=== PATIENT | female | born 1950 | race Caucasian/White ===

== ENCOUNTER → 2022-09-28 12:14 | Outpatient (BNVA) | payer MEDICARE, OTHER, SELFPAY | PROVIDERS: Family Provider Urology; PCP Urology; Visit Provider Nurse Practitioner | DX: N30.00 Acute cystitis without hematuria (principal) | CPT/HCPCS: 87077; 87086; 87184 ==

== ENCOUNTER 2022-11-05 18:21 | Inpatient (IN) | payer MEDICARE, OTHER, SELFPAY ==
[2022-11-05] VITALS (14 sets, daily range): BP systolic 101–187; BP diastolic 51–78; PULSE 57–100; RESP 14–19; TEMP 36.4; O2SAT 94–100; BMI 58.2
--- NOTE | 2022-11-05 18:32 | XRR_ITS ---
PROCEDURE INFORMATION: Exam: XR Chest Exam date and time: 11/05/2022 6:38 PM Age: 72 years old Clinical indication: Dyspnea TECHNIQUE: Imaging protocol: Radiologic exam of the chest. Views: 1 view. COMPARISON: No relevant prior studies available. FINDINGS: Lungs: Mild interstitial pulmonary edema. Pleural spaces: No pleural effusion. No pneumothorax. Heart/Mediastinum: Cardiac silhouette is moderately enlarged. Mediastinal contours are unremarkable. Vasculature: Vascular calcifications in the aorta. The aorta is tortuous. Bones/joints: Unremarkable for age. XR/XR chest 1V portable [id number] IMPRESSION: 1. Mild interstitial pulmonary edema. 2. Incidental/nonacute findings are listed in the report.
--- NOTE | 2022-11-05 18:35 | ED_ITS ---
HPI - SOB/Dyspnea General: Chief Complaint: Shortness of Breath/Dyspnea Stated Complaint: respiratory distress Time Seen by Provider: 11/05/22 18:26 History of Present Illness: HPI Narrative: Patient presents to the ER by EMS with shortness of breath x2 days. Family reports patient slept for over 20 hours yesterday and become more short of breath. Patient usually wears approximately 3 L of oxygen to maintain her sats but has been requiring up to 6 L of oxygen. Patient is usually more responsive and talkative than she has now per family. Review of Systems General: Reports: 10 or more systems reviewed and unremarkable except in HPI and below Physical Exam Const: COMMON NORMALS: no acute distress, patient oriented x3, no limitations and alert GENERAL APPEARANCE: cooperative and well developed NUTRITIONAL APPEARANCE: obese ORIENTATION/CONSCIOUSNESS: Yes awake, Yes oriented to person, Yes oriented to place and Yes oriented to time HENMT: COMMON NORMALS: normocephalic, atraumatic, hearing grossly normal bilaterally, external ears normal, Normal external nose present and moist oral mucous membranes HEAD & SCALP: normocephalic and atraumatic NOSE: Normal external nose present EXTERNAL EAR: Yes external ears normal Eye: COMMON NORMALS: Equal, round and reactive pupils present, EOMs intact bi laterally, conjunctivae normal and no scleral icterus CONJUNCTIVA: Yes co njunctivae normal PUPIL: Yes Equal, round and reactive pupils present Neck/C-Spine: COMMON NORMALS: full ROM, no lymphadenopathy, supple, no meningeal signs, no JVD and Thyroid normal THYROID: Thyroid normal Chest: COMMONS NORMALS: normal inspection of the chest and normal palpation of entire chest wall Resp: EFFORT & INSPECTION: Yes symmetric chest movement AUSCULTATION: diminished lung sounds Cardio: COMMON NORMALS: no JVD, regular rate, regular rhythm, S1 normal heart sound present, S2 normal heart sound present, No gallops present (Cardio), No clicks present (Cardio) and No murmurs present (Cardio) RATE: regular rate RHYTHM: regular rhythm HEART SOUNDS: S1 normal heart sound present and S2 normal heart sound present GI: COMMON NORMALS: Normal to inspection, nondistended, normoactive bowel sounds present, Soft to palpation, non-tender, No hepatosplenomegaly present and no masses PALPATION: Yes Soft to palpation and Yes No hepatosplenomegaly present OTHER: Morbid obesity Extremity: NARRATIVE EXTREMITY EXAM: 2+ pitting edema to bilateral lower extremities, brawny skin noted on bilateral lower extremities. Neuro: COMMON NORMALS: patient oriented x3 SENSORIUM/ORIENTATION: Yes alert, Yes oriented to person, Yes oriented to place and Yes oriented to time MENINGEAL SIGNS: Yes no meningeal signs Course Vital Signs: Vital signs: Vital Signs Temperature 97.6 F 11/05/22 18:57 Pulse Rate 100 11/05/22 20:06 Respiratory Rate 14 11/05/22 19:46 Blood Pressure 138/68 11/05/22 20:00 Pulse Oximetry 97 11/05/22 20:00 Oxygen Delivery Me thod Nasal Cannula 11/05/22 20:00 Oxygen Flow Rate 6 11/05/22 20:00 Fraction of Inspir ed Oxygen 35 11/05/22 20:06 MDM - SOB/Dyspnea Medical Decision Making Patient presents to the ER with complaints of shortness of breath. Patient is normally on 3 L of oxygen and today she is requiring 6 L of oxygen to keep her sat up. Patient does appear little more sleepy and tired than normal. Patient's family says she has been sleeping a lot more than normal and become short of breath today. ABG was obtained which showed a patient's PCO2 of 105. Patient was placed on BiPAP. Lab work was obtained which showed a normal white count of 8.6 normal BUN/creatinine of 13 and 0.5 but elevated CO2 of 42, chest x-ray showed mild interstitial pulmonary edema but a BNP was 168. Urinalysis did show 10-15 white blood cells with 0-4 squamous but was negative for leukocytes Estrace and nitrates. Dr. Dunne was consulted due to the patient's need for inpatient mission secondary to hypercapnia and being on BiPAP. Dr. Paresh landin agreed to inpatient placement for further evaluation and treatment. Patient will be placed on [facility] Differential Diagnosis Likely acute exacerbation of chronic obstructive airways disease and congestive heart failure; Unlikely community acquired pneumonia, asthma with exacerbation or pulmonary embolism Medical Records I reviewed the patient's medical records. Lab Data I reviewed the patient's lab results. 11/05/22 19:33 11/05/22 19:33 Labs/Radiology: Radiology Impressions Chest X-Ray 11/05/22 18:32 IMPRESSION: 1. Mild interstitial pulmonary edema. 2. Incidental/nonacute findings are listed in the report. Laboratory Results WBC 8.6 10^3/uL (4.0-10.0) 11/05/22 19: RBC 3.76 10^6/uL (4.1-5.3) L 11/05/22 19: Hgb 11.6 g/dL (11.5-15.3) 11/05/22 19: Hct 39.0 % (37.0-47.0) 11/05/22 19: MCV 103.7 fl (81-99) H 11/05/22 19: MCH 30.9 pg (28.0-34.0) 11/05/22: MCHC 29.7 g/dL (30.0-36.0) L 11/05/22: RDW 13.6 % (12.1-15.1) 11/05/22 19: Plt Count 155 10^3/cmm (130-400) 11/05/22: MPV 10.3 fL (7.4-10.4) 11/05/22 19:33 Neut % (Auto) 65.9 % 11/05/22 19:33 Lymph % (Auto) 22.6 % 11/05/22 19:33 Bland % (Auto) 9.0 % 11/05/22 19: Eos % (Auto) 1.7 % 11/05/22: Baso % (Auto) 0.3 % 11/05/22: Neut # (Auto) 5.66 10^3/uL (1.8-7.7) 11/05/22 19:33 Lymph # (Auto) 1.9 10^3/uL (0.8-4.8) 11/05/22 19:33 Bland # (Auto) 0.8 10^3/uL (0.2-0.9) 11/05/22 19: Eos # (Auto) 0.2 10^3/uL (0.0-0.8) 11/05/22 19: Baso # (Auto) 0.0 10^3/uL (0.0-0.1) 11/05/22 19:33 Nucleated RBC % (auto) 0 % 11/05/22 19: Nucleated RBCs # 0.0 /100WBC 11/05/22 19:33 Specimen Type Arterial 11/05/22 19:41 Sample Site Brachial, right 11/05/22 19:41 ABG pH 7.28 (7.35-7.45) L 11/05/22 19:41 ABG pCO2 105.0 mmHg (35-45) H* 11/05/22 19:41 ABG pO2 90.2 mmHg (80.0-100.0) 11/05/22 19:41 ABG HCO3 49.8 mmol/L (22-26) H 11/05/22 19:41 ABG O2 Saturation 97.7 11/05/22 19:41 ABG Base Excess 18.3 mmol/L (-2.0-2.0) H 11/05/22 19:41 Joaquín Test Pos 11/05/22 19:41 Hematocrit 37.4 % (37-47) 11/05/22 19:41 Hgb O2 Saturation 94.8 % (95-100) L 11/05/22 19:41 Carboxyhemoglobin 2.2 %THgb (0.4-20.1) 11/05/22 19:41 Methemoglobin 0.8 % (0.4-1.5) 11/05/22 19:41 Total Hemoglobin 12.2 g/dL (12-16) 11/05/22 19:41 Sodium 142.0 mmol/L (131-143) 11/05/22 19:41 Potassium 4.2 mmol/L (3.5-5.0) 11/05/22 19:41 Glucose 226.0 mg/dL (70-115) H 11/05/22 19:41 Ionized Calcium 1.3 mmol/L (1.1-1.4) 11/05/22 19:41 O2 Delivery Device Nc 11/05/22 19:41 O2 Liters/Min 3.0 % 11/05/22 19:41 Glass Forming Crew Member ID [email or web address] 11/05/22 19:41 Sodium 138 mmol/L (136-145) 11/05/22 19:33 Potassium 4.6 mmol/L (3.5-5.1) 11/05/22 19:33 Chloride 91 mmol/L (98-107) L 11/05/22 19:33 Carbon Dioxide 42 mmol/L (22-29) H* 11/05/22 19:33 Anion Gap 9.6 (5-19) 11/05/22 19:33 BUN 13 mg/dL (8-23) 11/05/22 19:33 Creatinine 0.5 mg/dL (0.5-0.9) 11/05/22 19:33 GFR Calculation 122.0 mL/min (90-130) 11/05/22 19:33 Glucose 206 mg/dL (65-115) H 11/05/22 19:33 Calculated Osmolality 292 mOsm/kg (285-295) 11/05/22 19:33 Lactic Acid 1.1 mmol/L (0.5-2.2) 11/05/22 19:33 Calcium 8.9 mg/dL (8.5-10.5) 11/05/22 19:33 Magnesium 1.9 mg/dL (1.7-2.3) 11/05/22 19:33 Total Bilirubin 0.6 mg/dL (0.15-1.2) 11/05/22 19:33 AST 26 U/L (0-32) 11/05/22 19:33 ALT 10 U/L (0-33) 11/05/22 19:33 Alkaline Phosphatase 110 U/L (35-105) H 11/05/22 19:33 NT-Pro-B Natriuret Pep 168 pg/mL (0-125) H 11/05/22 19:33 Total Protein 7.3 g/dL (6.6-8.7) 11/05/22 19:33 Albumin 3.2 g/dL (3.5-5.2) L 11/05/22 19:33 Globulin 4.1 g/dL (1.3-4.6) 11/05/22 19:33 Procalcitonin 0.08 ng/mL (0-0.5) 11/05/22 19:33 Urine Color Yellow (Yellow) 11/05/22 20:50 Urine Appearance Slightly cloudy (CLEAR) A 11/05/22 20:50 Urine pH 6 (5-7) 11/05/22 20:50 Ur Specific [place] 1.015 (1.005-1.030) 11/05/22 20:50 Urine Protein Neg (Negative) 11/05/22 20:50 Urine Glucose (UA) 1+ (Normal) H 11/05/22 20:50 Urine Ketones 1+ (Negative) H 11/05/22 20:50 Urine Blood Neg (Negative) 11/05/22 20:50 Urine Nitrate Negative (Negative) 11/05/22 20:50 Urine Bilirubin Neg (Negative) 11/05/22 20:50 Urine Urobilinogen 1 mg/dL (Negative) H 11/05/22 20:50 Ur Leukocyte Esterase Negative (Negative) 11/05/22 20:50 Urine RBC None /hpf (0-2) 11/05/22 20:50 Urine WBC 10-15 /hpf (0-5) H 11/05/22 20:50 Ur Squamous Epith Cells 0-4 /hpf (0-5) H 11/05/22 20:50 Amorphous Sediment Not Reportable 11/05/22 20:50 Urine Bacteria Trace /hpf (NONE) 11/05/22 20:50 Urine Mucus Trace /hpf 11/05/22 20:50 Urine Yeast 1+ /hpf H 11/05/22 20:50 EKG Data EKG 1: I personally reviewed and interpreted this EKG as follows: EKG Interpretation Date: 11/05/22 EKG interpretation time: 18:48 Prior EKG tracings: not available for review Interpretation: EKG showed ventricular rate of 79 beats minute, NM interval 222, QRS duration 100, QTc 424, sinus rhythm with a first-degree AV block, left anterior fascicular block, anteroseptal VT of indeterminate age shows Q waves in V1 through V4 Discharge Plan Discharge Patient Disposition: Admitted As Inpatient Clinical Impression: Acute respiratory failure with hypoxia and hypercapnia, COPD (chronic obstructive pulmonary disease), Morbid obesity Condition: Stable Referrals: Amari Fitzgerald MD [Primary Care Provider] - Coding Level of Care Code ED Picking Belt Operator for Chg Asher
--- NOTE | 2022-11-05 18:50 | PC.NURSE ---
Pt hooked up to continuous bedside cardiac monitoring.
[2022-11-05] MEDS: ipratropium-albuterol 3 mL Neb INHALATION (19:45)
[2022-11-05 19:50] LABS: ABG PH Result 7.28 (7.35-7.45); Arterial Blood Gas Hematocrit 37.4 % (37-47); Base Excess ABG 18.3 mmol/L (-2.0-2.0); Blood Gas Allen Test Pos; Blood Gas Sample Site Brachial, right; Blood Gas Sample Type Arterial; Carboxyhemoglobin 2.2 %THgb (0.4-20.1); HCO3 ABG 49.8 mmol/L (22-26); HGB O2 Sat 94.8 % (95-100); Ionized Calcium Level - ABG 1.3 mmol/L (1.1-1.4); Methemoglobin 0.8 % (0.4-1.5); Oxygen Device NC; Oxygen Saturation ABG 97.7; PO2 ABG 90.2 mmHg (80.0-100.0); Potassium Level - ABG 4.2 mmol/L (3.5-5.0); Total Hemoglobin 12.2 g/dL (12-16)
[2022-11-05 19:52] LABS: Basophils % 0.3 %; Eosinophils # 0.2 10^3/uL (0.0-0.8); Eosinophils % 1.7 %; Hemoglobin 11.6 g/dL (11.5-15.3); Lymphocytes # 1.9 10^3/uL (0.8-4.8); Lymphocytes % 22.6 %; Mean Corpuscular HGB Conc 29.7 g/dL (30.0-36.0); Mean Corpuscular Hemoglobin 30.9 pg (28.0-34.0); Mean Corpuscular Volume 103.7 fl (81-99); Mean Platelet Volume 10.3 fL (7.4-10.4); Monocytes # 0.8 10^3/uL (0.2-0.9); Neutrophils # 5.66 10^3/uL (1.8-7.7); Neutrophils % 65.9 %; Nucleated Red Blood Cells % 0 %; Platelet Count 155 10^3/cmm (130-400); Red Blood Count 3.76 10^6/uL (4.1-5.3); Red Cell Distribution Width 13.6 % (12.1-15.1); White Blood Count 8.6 10^3/uL (4.0-10.0)
[2022-11-05 20:15] LABS: Lactic Sepsis W/Reflex 1.1 mmol/L (0.5-2.2)
[2022-11-05 20:42] LABS: Alanine Aminotransferase 10 U/L (0-33); Albumin Level 3.2 g/dL (3.5-5.2); Alkaline Phosphatase 110 U/L (35-105); Anion Gap 9.6 (5-19); Aspartate Amino Transferase 26 U/L (0-32); Blood Urea Nitrogen 13 mg/dL (8-23); Calcium 8.9 mg/dL (8.5-10.5); Chloride 91 mmol/L (98-107); Globulin 4.1 g/dL (1.3-4.6); Glucose 206 mg/dL (65-115); Magnesium 1.9 mg/dL (1.7-2.3); NT Pro B Type Natriuretic Pept 168 pg/mL (0-125); Osmolality Calculated 292 mOsm/kg (285-295); Potassium 4.6 mmol/L (3.5-5.1); Procalcitonin 0.08 ng/mL (0-0.5); Sodium 138 mmol/L (136-145); Total Bilirubin 0.6 mg/dL (0.15-1.2); Total Protein 7.3 g/dL (6.6-8.7)
[2022-11-05 20:43] LABS: Carbon Dioxide 42 mmol/L (22-29)
[2022-11-05] MEDS: FUROsemide 10 mg/mL SDV 4mL 40 MG IVP (20:43)
[2022-11-05 21:14] LABS: Add Urine Microscopic? YES; Bilirubin Urine Neg (Negative); Blood Urine Neg (Negative); Glucose Urine UA 1+ (Normal); Ketones Urine 1+ (Negative); Leukocyte Esterase Urine Negative (Negative); Nitrate Urine Negative (Negative); Protein Urine Neg (Negative); Specific Gravity, Urine 1.015 (1.005-1.030); Urine Appearance Slightly Cloudy (CLEAR); Urine Color Yellow (Yellow); Urobilinogen Urine 1 mg/dL (Negative); pH Urine 6 (5-7)
[2022-11-05 21:15] LABS: Add Urine Culture? No; Bacteria Urine TRACE /hpf; Mucus Urine TRACE /hpf; Squamous Epithelial Cell Urine 0-4 /hpf (0-5)
--- NOTE | 2022-11-05 21:36 | P.HP_ITS ---
Providers/Chief Complaint Primary Care Provider: Amari Fitzgerald MD Chief Complaint: respiratory distress History of Present Illness Cara Stevens is a 72 year old female with past medical history of end-stage COPD, chronic heart failure, diabetes mellitus, kidney stones, CKD, hypothyroidism, obstructive sleep apnea, restless leg syndrome who presented to the hospital today accompanied by her son for being obtunded. Patient's son provides most of the history at bedside. He states that she recently moved from [place] to [place] about 3 weeks ago. She has not established care here yet. She sees Dr. Nancy Baird in [place] for primary care. 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 Patient's son states that her last hospitalization was in April 2022 when she has been out of the hospital for about 6 months which is pretty good compared to prior. She has been intubated in the past about 2 years ago and did have COVID-19 at the time. He states that she is pretty immobile and uses a power lift chair and is able to transfer from the chair to bedside commode but lately has not been able to do that either. He states that her baseline CO2 is 80-90 on a regular basis however when she goes out feeling a little bit she becomes very altered and that is when he notes the need to come to the hospital. They do not have a BiPAP at home and they are trying to obtain 1. They recently had a sleep [facility] the [facility] in order to qualify for BiPAP however have not heard of results yet. He also states that patient has had quite a bit of fluid buildup on her legs and she is on torsemide and spironolactone for that. He says she does not really do well with Lasix that she gets hypokalemic and kidney gets very messed up . This usually prolongs her hospitalization patient is on however does understand the need for Lasix in case of heart failure and is okay with us giving it to her if needed. He also states that she has been on hospice in the past however did not like to any people coming to the house and giving her morphine and keeping her on pain medications. She came off of hospice and is not interested in going back on it again. He is very well aware that she has end-stage COPD and they are nearing the end . He is the official DPOA. She is on beclomethasone inhaler and nebulizing treatments twice a day. She is on gabapentin, Vicodin, allopurinol, potassium citrate. He also states that she is on Macrobid for UTI. He says that she constantly has a urine infection that never really clears up. She also takes ropinirole and Singulair. The rest of her medications he cannot remember at this time. She is an insulin-dependent diabetic however he is not on Lantus. He states she is on a powerful insulin that none of the hospitals carry and he will bring it to the hospital in the morning. At this time when seen patient knows her name her date of knows that she is in the hospital at [facility] however does not know the year or who the president is at this time. She also does tend to doze off when talking. She is currently wearing 6 L nasal cannula. Her baseline is 3 L nasal cannula at home. She denies nausea vomiting diarrhea at this time. She has chronic back pain which is currently present as well. Patient's son does not have a list of her medications and will bring him in the morning. ED course: Labs 8.6, hemoglobin 11.6, platelets 155, ABG 7.2 8/105/90 0.2/49.8. Sodium 138, potassium 4.6, chloride 91, CO2 42, creatinine 0.5, lactic acid 1.1, BNP 168, UA positive for 1+ glucose 1+ ketones, negative leukocyte esterase, 10- 15 WBCs, 1+ yeast, trace bacteria, trace mucus. Matos catheter in place draining edison-colored urine. Chest x-ray did show mild interstitial pulmonary edema. Blood pressure on arrival 138/68, pulse ox 97% on 6 L nasal cannula, respirate 14, saturating 97%. Pulse 100, temperature 97.6. Medications/Allergies Home Medications Medication Instructions Recorded Confirmed Last Taken Type alprazolam 0.5 mg tablet mg 11/06/22 11/06/22 Unknown History Allergies Allergy/AdvReac Type Severity Reaction Status Date / Time clindamycin Allergy Unknown RASH Verified 10/20/22 10:03 Vitals/I&O/Wt Last Vital Signs Temp 97.6 F 11/05/22 18:57 Pulse 100 11/05/22 20:06 Resp 14 11/05/22 19:46 BP 138/68 11/05/22 20:00 Pulse Ox 97 11/05/22 20:00 O2 Del Method Nasal Cannula 11/05/22 20:00 O2 Flow Rate 6 11/05/22 20:00 FiO2 35 11/05/22 20:06 Weight last 48 hrs Weight 158.757 kg Physical Exam Narrative: General: Alert oriented x2, patient seen laying in bed on BiPAP at this time, no acute respiratory distress no conversational dyspnea. However after talking for a little bit does tend to doze off. HEENT: Normocephalic, atraumatic, EOMI, Cardio: Regular rate rhythm, normal S1-S2 Respiratory: Here lung driver clear to auscultation no wheezes no rhonchi present, posterior lung driver diminished at bases bilaterally GI: Abdomen soft, nontender, nondistended, bowel sounds + Extremities: Chronic venous stasis changes bilateral lower extremities, 2+ pitting edema up to thighs Urinary Catheter Management: Matos: Cath Placed During This Visit: yes Urinary Catheter Date of Insertion: 11/05/22 Urinary Catheter Time of Insertion: 20:51 Data 11/05/22 19:33 11/05/22 19:33 A&P Assessment and plan (1) Acute respiratory failure with hypoxia and hypercapnia: (2) COPD (chronic obstructive pulmonary disease): Qualifiers: COPD type: unspecified COPD Qualified Code(s): J44.9 - Chronic obstructive pulmonary disease, unspecified (3) Morbid obesity: (4) CHF (congestive heart failure): (5) UTI (urinary tract infection): (6) CKD (chronic kidney disease): (7) ELI (obstructive sleep apnea): (8) End stage COPD: (9) Oxygen dependent: Plan #CO2 narcosis #End-stage COPD #Acute on congestive heart failure, unspecified #Diabetes mellitus, insulin-dependent #Urolithiasis #CKD #Hypothyroidism #Restless leg syndrome #History of chronic UTIs ? Baseline CO2 80-90 ? CO2 105 pH 7.28 on arrival today. Placed on BiPAP. Currently improving ? Check urine culture ? Patient is somewhat altered most likely secondary to CO2 narcosis versus UTI ? Check blood culture ? We will place on Zosyn at this time ? Patient had a sleep study done as an outpatient at the [facility]. Awaiting results. ? Request records from [facility] ? Sliding scale insulin moderate dose intensity ? Does appear fluid overloaded at this time. Will place on Lasix 40 daily IV ? Hold home torsemide spironolactone at this time. Has not been taking it for the last few days anyway due to increasing urination ? We will need to confirm patient's home medications. Patient's son will bring list in the morning ? He will also bring her home insulin in the morning. ? Check TSH, hemoglobin A1c ? Patient has been on hospice in the past but is not interested in hospice at this time. -DuoNeb every 6 hours as needed ? Budesonide 0.5 twice daily nebulizing -Placed on dexamethasone 6 IV daily. ? Avoid IV fluids at this time - Recheck gas in a.m. -Check echo -Diet: Patient's son specifically requests regular diet for the patient. He states that she is done with eating cardiac diet and diabetic diets and she would prefer a regular diet at this time they understand the risks associated w ith it. Full code SCDs, heparin subcu twice daily DVT prophylaxis Attestations Medical Necessity Statement*: Greater than 2 midnight stay for management of COPD exacerbation, CO2 narcosis Coding Level of Care Code G0427 (70 min) TH Encounter Time (min): 75 Patient seen via Telehealth in the acute care setting (hospital or ED location) by agreement and consent of patient or patient direct marketing representative. Telehealth technology used during the visit includes video and audio. This patient encounter is appropriate and reasonable under the circumstances given the patient?s particular presentation at this time. The patient has been advised of the potential risks and limitations of this mode of treatment (including but not limited to the absence of in-person examination at this time) and has agreed to be treated by an off-site physician for this visit. If deemed clinically necessary from this telehealth visit, or if condition or consent for telehealth visit changes, an in-person visit will be arranged. For this encounter, total time for the origination of telehealth care on this date is as shown. Diagnoses Acute respiratory failure with hypoxia and hypercapnia J96.01; J96.02 COPD (chronic obstructive pulmonary disease) J44.9 COPD type: unspecified COPD Morbid obesity E66.01 CHF (congestive heart failure) I50.9 UTI (urinary tract infection) N39.0 CKD (chronic kidney disease) N18.9 ELI (obstructive sleep apnea) G47.33 End stage COPD J44.9 Oxygen dependent Z99.81
[2022-11-06] VITALS (56 sets, daily range): BP systolic 90–150; BP diastolic 46–118; PULSE 52–94; RESP 10–35; TEMP 36.7–37.7; O2SAT 81–99; BMI 53.1
--- NOTE | 2022-11-06 00:45 | USCV_ITS ---
Cara Stevens Age: 72 Gender: F : 1950 Exam Date: 11/06/2022 01:22 Ordering Phys: Kerry Dunne MD Technologist: David Lemus [place] [facility] [place]: SOB x 2 days. O2 dependent at 3L. Patient on BIPAP, unresponsive in ICU-8. BP: 113 / 53 HR: 66 Rhythm: Sinus Technical Quality: Adequate MEASUREMENTS (Male / Female) Normal Values 2D ECHO LV Diastolic Diameter PLAX 4.8 cm 4.2 - 5.9 / 3.9 - 5.3 cm LV Systolic Diameter PLAX 3.1 cm IVS Diastolic Thickness 1.3 cm 0.6 - 1.0 / 0.6 - 0.9 cm IVS Systolic Thickness 1.6 cm LVPW Diastolic Thickness 1.1 cm 0.6 - 1.0 / 0.6 - 0.9 cm LVPW Systolic Thickness 1.4 cm LVOT Diameter 2.0 cm LV Ejection Fraction 2D Teich 64.5 % LV Ejection Fraction MOD 2C 57.1 % LV Ejection Fraction 2C AL 57.6 % LA Diameter 3.8 cm LA Width 5.4 cm LA Height 6.5 cm RA Width 4.3 cm RA Height 5.0 cm Aorta at Sinotubular Diameter 2.5 cm IVC Diameter 2.4 cm M-MODE Aortic Annulus Diameter 2.8 cm LA Ao Ratio MM 1.3 MV E Point Septal Separation 0.8 cm DOPPLER AV Peak Velocity 99.0 cm/s LVOT Peak Velocity 85.0 cm/s AV Area Cont Eq vti 2.7 cm squared AV Area Cont Eq pk 2.6 cm squared MV Area PHT 2.8 cm squared Mitral E to A Ratio 1.1 MV E' Velocity 63.5 cm/s Mitral E to MV E' Ratio 13.7 Mitral E to LV E' Lateral Ratio 13.3 Mitral E to LV E' Septal Ratio 14.4 TV Peak E Velocity 50.0 cm/s PV Peak Velocity 104.0 cm/s RV Acceleration Time 0.1 s RV Ejection Time 0.3 s RV AcT/ET 0.3 FINDINGS Left Ventricle Left ventricle is normal in size. LV systolic function is normal with EF of 55 to 60%. No regional wall motion abnormalities are seen. Right Ventricle Normal in size and function Right Atrium Normal in size Left Atrium Dilated Mitral Valve Mild mitral annular calcification is seen. Trace mitral regurgitation. Aortic Valve Aortic valve is thickened and calcified. No significant stenosis or regurgitation. Tricuspid Valve Trace tricuspid regurgitation is seen. Insufficient TR jet to calculate RVSP Pulmonic Valve Not well-visualized. Trace pulmonic regurgitation Pericardium Normal Aorta Normal in size IVC Dilated CONCLUSIONS LV systolic function is normal with EF of 55-60% Dilated left atrium Trace mitral regurgitation Trace tricuspid regurgitation Trace pulmonic regurgitation. IVC is dilated No comparison studies are available Nathan Hernandez MD (Electronically Signed) Final Date: 06 November 2022 15:10 S
[2022-11-06 01:42] LABS: ABG PH Result 7.39 (7.35-7.45); Arterial Blood Gas Hematocrit 34.8 % (37-47); Base Excess ABG 21.1 mmol/L (-2.0-2.0); Blood Gas Operator Identificat JB; Blood Gas Sample Site Brachial, right; Blood Gas Sample Type Arterial; HCO3 ABG 50.1 mmol/L (22-26); Oxygen Device BIPAP; PO2 ABG 72.7 mmHg (80.0-100.0)
[2022-11-06 01:43] LABS: ABG PCO2 82.6 mmHg (35-45)
[2022-11-06] MEDS: piperacillin-tazobactam 3.375 GM in sodium chloride 0.9% (plus) 50 ML IV ×3 (02:29→16:56)
[2022-11-06] MEDS: dexamethasone 10 mg/mL INJ 6 MG IVP (02:29)
[2022-11-06] MEDS: heparin 5,000 unit/mL INJ 1 mL 5000 UNIT SUBCUT (02:29)
[2022-11-06 02:38] LABS: Basophils % 0.5 %; Eosinophils # 0.2 10^3/uL (0.0-0.8); Hemoglobin 11.2 g/dL (11.5-15.3); Lymphocytes # 2.1 10^3/uL (0.8-4.8); Lymphocytes % 27.2 %; Mean Corpuscular HGB Conc 29.5 g/dL (30.0-36.0); Mean Corpuscular Hemoglobin 30.5 pg (28.0-34.0); Mean Corpuscular Volume 103.5 fl (81-99); Mean Platelet Volume 10.3 fL (7.4-10.4); Monocytes # 0.7 10^3/uL (0.2-0.9); Monocytes % 9.3 %; Neutrophils # 4.76 10^3/uL (1.8-7.7); Neutrophils % 60.6 %; Nucleated Red Blood Cells % 0 %; Platelet Count 157 10^3/cmm (130-400); Red Blood Count 3.67 10^6/uL (4.1-5.3); Red Cell Distribution Width 13.7 % (12.1-15.1); White Blood Count 7.9 10^3/uL (4.0-10.0)
[2022-11-06 03:03] LABS: Blood Urea Nitrogen 14 mg/dL (8-23); Calcium 9.5 mg/dL (8.5-10.5); Chloride 92 mmol/L (98-107); Glucose 211 mg/dL (65-115); Magnesium 1.7 mg/dL (1.7-2.3); Osmolality Calculated 297 mOsm/kg (285-295); Sodium 140 mmol/L (136-145)
[2022-11-06 03:06] LABS: Anion Gap 6.3 (5-19); Potassium 4.3 mmol/L (3.5-5.1)
[2022-11-06 03:09] LABS: Carbon Dioxide 46 mmol/L (22-29)
[2022-11-06 03:13] LABS: Procalcitonin 0.11 ng/mL (0-0.5); Thyroid Stimulating Hormone 5.87 uIU/mL (0.27-4.20)
[2022-11-06 05:13] LABS: Add Urine Microscopic? YES; Bilirubin Urine Neg (Negative); Blood Urine Neg (Negative); Glucose Urine UA Norm (Normal); Ketones Urine Negative (Negative); Leukocyte Esterase Urine Trace (Negative); Nitrate Urine Negative (Negative); Protein Urine 1+ (Negative); Urine Appearance Cloudy (CLEAR); Urine Color Yellow (Yellow); Urobilinogen Urine Neg (Negative); pH Urine 5 (5-7)
[2022-11-06 05:19] LABS: RBC Urine 0-4 /hpf (0-2)
[2022-11-06 05:20] LABS: Bacteria Urine 2+ /hpf; Coarse Granular Casts Urine 0-4 /lpf; Mucus Urine 3+ /hpf
[2022-11-06 05:21] LABS: Add Urine Culture? Yes
[2022-11-06 05:44] LABS: Base Excess ABG 20.5 mmol/L (-2.0-2.0); Blood Gas Allen Test Pos; Blood Gas Operator Identificat JB; Blood Gas Sample Site Brachial, right; Blood Gas Sample Type Arterial; HCO3 ABG 49.2 mmol/L (22-26); Oxygen Device BIPAP; PO2 ABG 66.6 mmHg (80.0-100.0)
[2022-11-06 05:45] LABS: ABG PCO2 79.9 mmHg (35-45)
[2022-11-06 08:01] LABS: Glucose Point of Care 280 mg/dL (70-110)
[2022-11-06] MEDS: budesonide 0.5 mg/2 mL Neb INHALATION ×2 (08:06→20:06)
[2022-11-06] MEDS: ipratropium-albuterol 3 mL Neb INHALATION ×4 (08:06→20:06)
[2022-11-06] MEDS: FUROsemide 10 mg/mL SDV 4mL 40 MG IVP (08:16)
[2022-11-06] MEDS: insulin lispro 100 unit/1 mL SUBCUT ×4 (08:16→21:17)
--- NOTE | 2022-11-06 09:16 | PC.PHAR ---
FAXED [place] FOR MED LIST
[2022-11-06 10:53] LABS: Glucose Point of Care 379 mg/dL (70-110)
--- NOTE | 2022-11-06 12:05 | PM.PN ---
Subjective Subjective: Patient was seen and examined this morning, she was complaining of shortness of breath which is more than her baseline shortness of breath, morning ABG has been reviewed, currently is compensated chronic hypercapnia.Currently she is saturating well on 4 L oxygen which is more or less her baseline. Medications: Medication Review Details: Generic Name Dose Route Start Last Admin Trade Name Lisa PRN Reason Stop Dose Admin Albuterol/Ipratrop ium 3 ml 11/06/22 08:00 11/06/22 11:01 Ipratropium-Albu terol 3 Ml Neb INHALATION 3 ml QID.RESPIRATORY S CH Administration Budesonide 0.5 mg 11/06/22 08:00 11/06/22 08:06 Budesonide 0.5 M g/2 Ml Neb INHALATION 0.5 mg BID.RESPIRATORY S CH Administration Dexamethasone 6 mg 11/06/22 00:45 11/06/22 02:29 Dexamethasone 10 Mg/Ml Inj IVP 6 mg Q24H GET Administration Furosemide 40 mg 11/06/22 08:00 11/06/22 08:16 Furosemide 10 Mg /Ml Sdv 4ml IVP 40 mg Q24H GET Administration Heparin Sodium (Po rcine) 5,000 unit 11/06/22 00:45 11/06/22 02:29 Heparin 5,000 Un it/Ml Inj 1 Ml SUBCUT 5,000 unit Q12H GET Administration Piperacillin Sod/T azobactam 50 mls @ 12.5 mls /hr 11/06/22 01:00 11/06/22 08:17 Sod 3.375 gm/ So dium Chloride IV 12.5 mls/hr Q8H GET Administration Insulin Human Lisp ro 0 unit 11/06/22 08:00 11/06/22 08:16 Insulin Lispro 1 00 Unit/1 Ml SUBCUT 10 unit WM&BEDTIME GET Administration Protocol Vitals/I&O/Wt Last Vital Signs Temp 98.0 F 11/06/22 04:00 Pulse 79 11/06/22 11:03 Resp 21 H 11/06/22 11:01 BP 118/66 11/06/22 10:30 Pulse Ox 95 11/06/22 11:03 O2 Del Method BiPAP 11/06/22 11:01 O2 Flow Rate 4 11/06/22 10:30 FiO2 30 11/06/22 11:03 11/05/22 11/06/22 11/06/22 22:59 06:59 14:59 Intake Total 300 / 300 300 / 300 Output Total 1350 / 1350 Balance -1050 / -1050 300 / 300 Weight last 48 hrs Weight 144.696 kg Weight 158.757 kg Physical Exam HENMT: COMMON NORMALS: normocephalic and atraumatic HEAD & SCALP: normocephalic and atraumatic Resp: COMMON NORMALS: clear to auscultation bilaterally AUSCULTATION: clear to auscultation bilaterally OTHER: Diminished air entry B/L Cardio: COMMON NORMALS: regular rate, regular rhythm, S1 normal heart sound present, S2 normal heart sound present, No gallops present (Cardio), No murmurs present (Cardio), No rub (Cardio) and Peripheral pulses 2+ throughout RATE: regular rate RHYTHM: regular rhythm HEART SOUNDS: S1 normal heart sound present and S2 normal heart sound present PERIPHERAL PULSES: Peripheral pulses 2+ throughout GI: COMMON NORMALS: Normal to inspection, nondistended, normoactive bowel sounds present, Soft to palpation, non-tender, No hepatosplenomegaly present and no masses AUSCULTATION: Yes normoactive bowel sounds PALPATION: Yes Soft to palpation and Yes No hepatosplenomegaly present RECTAL EXAM: deferred Extremity: COMMON NORMALS: no clubbing, cyanosis or edema and no pedal edema Urinary Catheter Management: Matos: Cath Placed During This Visit: yes Reason for Continuing Indwelling Catheter: Accurate Measurement of Urinary Output in Critically Ill Patients Urinary Catheter Date of Insertion: 11/05/22 Urinary Catheter Time of Insertion: 20:51 Data 11/06/22 01:45 11/06/22 01:45 Micro: Microbiology 11/06/22 01:45 Blood Culture - Preliminary Blood SPECIMEN COLLECTED 11/06/22 01:50 Blood Culture - Preliminary Blood SPECIMEN COLLECTED A&P Assessment and plan (1) Acute respiratory failure with hypoxia and hypercapnia: (2) COPD (chronic obstructive pulmonary disease): Qualifiers: COPD type: unspecified COPD Qualified Code(s): J44.9 - Chronic obstructive pulmonary disease, unspecified (3) Morbid obesity: (4) CHF (congestive heart failure): (5) UTI (urinary tract infection): (6) CKD (chronic kidney disease): (7) ELI (obstructive sleep apnea): (8) End stage COPD: (9) Oxygen dependent: (10) Altered mental status: Plan 72-year-old female with past medical history of COPD Gold class D usually uses 3 L home oxygen, heart failure type unspecified, diabetes, hypothyroidism, chronic UTI, came in with chief complaint of AMS, when I interacted with the patient this morning she was complaining of worsening shortness of breath.She was also complaining of burning while passing urine. She is currently being managed for. Assessment: Acute on chronic hypoxic hypercapnic respiratory failure secondary to COPD exacerbation: decompensated heart failure. X-ray chest has shown: Mild interstitial pulmonary edema Serial ABG been reviewed Procalcitonin 0.11 proBNP is 168: Which is low: It can be falsely low in obese patient. 2 D Echo: Blood culture Currently she is on dexamethasone, DuoNebs, budesonide inhaler, Singulair, BiPAP and supplemental oxygen as needed. She is also on Lasix 40 IV daily, intake and output charting is being monitored. Continue telemetry monitoring Decompensated heart failure: Plan As above Altered mental status: Secondary to hypercapnic respiratory failure, possible UTI: Has resolved Continue to monitor mentation History of recurrent UTI: Follow blood culture Urine culture Currently she is empirically on Zosyn, according to the patient previous urine culture had grown resistant organism, details are currently not available. History of hypothyroidism: TSH: 5.87 Continue levothyroxine History of diabetes: Continue Lantus,HDSSI, monitor fingerstick glucose Carbohydrate consistent diet Full code SCDs, heparin subcu twice daily DVT prophylaxis Attestations Medical Necessity Statement*: Patient is still in the hospital for the management of respiratory failure. Coding Level of Care Code Acute Code for [facility] Fwd Diagnoses Acute respiratory failure with hypoxia and hypercapnia J96.01; J96.02 COPD (chronic obstructive pulmonary disease) J44.9 COPD type: unspecified COPD Morbid obesity E66.01 CHF (congestive heart failure) I50.9 UTI (urinary tract infection) N39.0 CKD (chronic kidney disease) N18.9 ELI (obstructive sleep apnea) G47.33 End stage COPD J44.9 Oxygen dependent Z99.81 Altered mental status R41.82
--- NOTE | 2022-11-06 15:46 | PC.NURSE ---
VTach 6 beat run self terminating VTach. Tracing placed in chart.
[2022-11-06] MEDS: gabapentin 300 mg Capsule 900 MG PO (16:56)
[2022-11-06 17:08] LABS: Glucose Point of Care 293 mg/dL (70-110)
[2022-11-06] MEDS: HYDROcodone-acetaminophen 5-325 mg Tablet 1 TAB PO (19:05)
[2022-11-06 21:15] LABS: Glucose Point of Care 339 mg/dL (70-110)
[2022-11-06] MEDS: insulin glargine 100 units/1 mL 30 UNIT SUBCUT (21:17)
[2022-11-06] MEDS: haloperidol inj 5 mg/mL INJ 1 mL 2 MG IM (22:33)
[2022-11-07] VITALS (46 sets, daily range): BP systolic 101–148; BP diastolic 47–95; PULSE 53–97; RESP 12–37; TEMP 36.7–37.1; O2SAT 87–98
[2022-11-07] MEDS: heparin 5,000 unit/mL INJ 1 mL 5000 UNIT SUBCUT (01:39)
[2022-11-07] MEDS: piperacillin-tazobactam 3.375 GM in sodium chloride 0.9% (plus) 50 ML IV ×3 (01:39→16:35)
[2022-11-07] MEDS: dexamethasone 10 mg/mL INJ 6 MG IVP (01:39)
[2022-11-07 06:54] LABS: Blood Urea Nitrogen 19 mg/dL (8-23); Calcium 9.5 mg/dL (8.5-10.5); Chloride 86 mmol/L (98-107); Glomerular Filtration Rate 98.8 mL/min (90-130); Glucose 313 mg/dL (65-115); Magnesium 1.7 mg/dL (1.7-2.3); Osmolality Calculated 290 mOsm/kg (285-295); Sodium 133 mmol/L (136-145)
[2022-11-07 07:07] LABS: Anion Gap 9.8 (5-19); Carbon Dioxide 42 mmol/L (22-29); Potassium 4.8 mmol/L (3.5-5.1)
[2022-11-07] MEDS: HYDROcodone-acetaminophen 5-325 mg Tablet 1 TAB PO ×2 (07:23→15:40)
[2022-11-07 07:39] LABS: Glucose Point of Care 356 mg/dL (70-110)
[2022-11-07] MEDS: ipratropium-albuterol 3 mL Neb INHALATION ×4 (07:44→19:15)
[2022-11-07] MEDS: budesonide 0.5 mg/2 mL Neb INHALATION ×2 (07:44→19:15)
[2022-11-07] MEDS: levothyroxine 125 mcg Tablet PO (08:07)
[2022-11-07] MEDS: gabapentin 300 mg Capsule 900 MG PO ×3 (08:07→21:43)
[2022-11-07] MEDS: montelukast sodium 10 mg Tablet PO (08:07)
[2022-11-07] MEDS: FUROsemide 10 mg/mL SDV 4mL 40 MG IVP (08:08)
[2022-11-07] MEDS: insulin lispro 100 unit/1 mL SUBCUT ×5 (08:08→21:43)
[2022-11-07 10:40] LABS: Glucose Point of Care 520 mg/dL (70-110)
--- NOTE | 2022-11-07 10:47 | PC.NURSE ---
Patient education provided on nutrition for diabetic patients. Patient and family at bedside disagrees with education. Written education provided. Dr. Pruitt notified of finger stick glucose at 520. Orders received to give 40 lantus, and 30 lispro now. See MAR for administration.
[2022-11-07] MEDS: insulin glargine 100 units/1 mL 40 UNIT SUBCUT (11:43)
[2022-11-07] MEDS: insulin lispro 100 unit/1 mL 30 UNIT SUBCUT (11:43)
[2022-11-07 13:03] LABS: Glucose Point of Care 502 mg/dL (70-110)
--- NOTE | 2022-11-07 14:51 | PC.NURSE ---
Extensive education provided to patient regarding physical therapy, diet modifications for diabetics, and goals for hospital stay as well as turning schedule to prevent injury. Patient resistant to teachings. Patient transferred to second floor room 275. Patient resting in chair with family in room. All belongings transferred with patient and are at bedside. Patient currently on 4L NC. Chart left with staff at front desk associate.
--- NOTE | 2022-11-07 15:32 | P.PN_ITS ---
Subjective Subjective: Patient was seen and examined this morning, overall she is doing better currently saturating well on 4 L supplemental oxygen, worked with physical therapy, currently she is out of bed to chair. Shortness of breath is improving. Cultures so far has remained negative. Blood sugar is elevated, alexis tional correctional doses of insulin being given. Medications: Medication Review Details: Generic Name Dose Route Start Last Admin Trade Name Freq PRN Reason Stop Dose Admin Hydrocodone Bitart /Acetaminophen 1 tab 11/06/22 16:28 11/07/22 07:23 Hydrocodone-Acet aminophen 5-325 Mg Tablet PO 1 tab Q8H PRN Administration MODERATE PAIN Albuterol/Ipratrop ium 3 ml 11/06/22 08:00 11/07/22 15:18 Ipratropium-Albu terol 3 Ml Neb INHALATION 3 ml QID.RESPIRATORY S CH Administration Budesonide 0.5 mg 11/06/22 08:00 11/07/22 07:44 Budesonide 0.5 M g/2 Ml Neb INHALATION 0.5 mg BID.RESPIRATORY S CH Administration Furosemide 40 mg 11/06/22 08:00 11/07/22 08:08 Furosemide 10 Mg /Ml Sdv 4ml IVP 40 mg Q24H GET Administration Gabapentin 900 mg 11/06/22 17:00 11/07/22 08:07 Gabapentin 300 M g Capsule PO 900 mg TID GET Administration Heparin Sodium (Po rcine) 5,000 unit 11/06/22 00:45 11/07/22 13:33 Heparin 5,000 Un it/Ml Inj 1 Ml SUBCUT Not Given Q12H GET Piperacillin Sod/T azobactam 50 mls @ 12.5 mls /hr 11/06/22 01:00 11/07/22 12:30 Sod 3.375 gm/ So dium Chloride IV Infused Q8H GET Infusion Insulin Glargine 30 unit 11/06/22 21:00 11/06/22 21:17 Insulin Glargine 100 Units/1 Ml SUBCUT 30 unit BEDTIME GET Administration Insulin Human Lisp ro 0 unit 11/06/22 12:21 11/07/22 13:41 Insulin Lispro 1 00 Unit/1 Ml SUBCUT 18 unit WM&BEDTIME GET Administration Protocol Levothyroxine Sodi um 125 mcg 11/07/22 09:00 11/07/22 08:07 Levothyroxine 12 5 Mcg Tablet PO 125 mcg DAILY GET Administration Montelukast Sodium 10 mg 11/07/22 09:00 11/07/22 08:07 Montelukast Sodi um 10 Mg Tablet PO 10 mg DAILY GET Administration Vitals/I&O/Wt Last Vital Signs Temp 98.8 F 11/07/22 14:54 Pulse 91 11/07/22 15:10 Resp 18 11/07/22 15:00 BP 111/64 11/07/22 14:54 Pulse Ox 95 11/07/22 15:00 O2 Del Method Nasal Cannula 11/07/22 15:00 O2 Flow Rate 4 11/07/22 15:00 FiO2 30 11/07/22 03:08 11/07/22 11/07/22 11/07/22 06:59 14:59 22:59 Intake Total 450 / 1330 794 / 794 Output Total 450 / 2000 1999 / 1999 Balance 0 / -670 -1206 / -1206 Weight last 48 hrs Weight 144.696 kg Weight 158.757 kg Physical Exam HENMT: COMMON NORMALS: normocephalic and atraumatic HEAD & SCALP: normocephalic and atraumatic Resp: COMMON NORMALS: clear to auscultation bilaterally AUSCULTATION: clear to auscultation bilaterally OTHER: Diminished air entry B/L Cardio: COMMON NORMALS: regular rate, regular rhythm, S1 normal heart sound present, S2 normal heart sound present, No gallops present (Cardio), No murmurs present (Cardio), No rub (Cardio) and Peripheral pulses 2+ throughout RATE: regular rate RHYTHM: regular rhythm HEART SOUNDS: S1 normal heart sound present and S2 normal heart sound present PERIPHERAL PULSES: Peripheral pulses 2+ throughout GI: COMMON NORMALS: Normal to inspection, nondistended, normoactive bowel sounds present, Soft to palpation, non-tender, No hepatosplenomegaly present and no masses AUSCULTATION: Yes normoactive bowel sounds PALPATION: Yes Soft to palpation and Yes No hepatosplenomegaly present RECTAL EXAM: deferred Extremity: COMMON NORMALS: no clubbing, cyanosis or edema and no pedal edema Urinary Catheter Management: Matos: Cath Placed During This Visit: yes Reason for Continuing Indwelling Catheter: Accurate Measurement of Urinary Output in Critically Ill Patients Urinary Catheter Date of Insertion: 11/05/22 Urinary Catheter Time of Insertion: 20:51 Data 11/06/22 01:45 11/07/22 06:26 Micro: Microbiology 11/06/22 02:35 Urine Culture - Preliminary Urine,Clean Catch 11/06/22 01:50 Blood Culture - Preliminary Blood NEGATIVE TO DATE 11/06/22 01:45 Blood Culture - Preliminary Blood NEGATIVE TO DATE A&P Assessment and plan (1) Acute respiratory failure with hypoxia and hypercapnia: (2) COPD (chronic obstructive pulmonary disease): Qualifiers: COPD type: unspecified COPD Qualified Code(s): J44.9 - Chronic obstructive pulmonary disease, unspecified (3) Morbid obesity: (4) CHF (congestive heart failure): (5) UTI (urinary tract infection): (6) CKD (chronic kidney disease): (7) ELI (obstructive sleep apnea): (8) End stage COPD: (9) Oxygen dependent: (10) Altered mental status: Plan 72-year-old female with past medical history of COPD Gold class D usually uses 3 L home oxygen, heart failure type unspecified, diabetes, hypothyroidism, chronic UTI, came in with chief complaint of AMS, when I interacted with the patient this morning she was complaining of worsening shortness of breath.She was also complaining of burning while passing urine. She is currently being managed for. Assessment: Acute on chronic hypoxic hypercapnic respiratory failure secondary to COPD exacerbation: decompensated heart failure. X-ray chest has shown: Mild interstitial pulmonary edema Serial ABG been reviewed Procalcitonin 0.11 proBNP is 168: Which is low: It can be falsely low in obese patient. 2 D Echo: LV systolic function is normal with EF of 55-60% Dilated left atrium Trace mitral regurgitation?Trace tricuspid regurgitation ?Trace pulmonic regu rgitation. ?IVC is dilated Blood culture:NTD Currently she is on dexamethasone, DuoNebs, budesonide inhaler, Singulair, BiPAP and supplemental oxygen as needed. She is also on Lasix 40 IV daily, intake and output charting is being monitored. Continue telemetry monitoring Decompensated heart failure: Plan As above Altered mental status: Secondary to hypercapnic respiratory failure, possible UTI: Has resolved Continue to monitor mentation History of recurrent UTI: Follow blood culture Urine culture: NTD Currently she is empirically on Zosyn, according to the patient previous urine culture had grown resistant organism, details are currently not available. History of hypothyroidism: TSH: 5.87 Continue levothyroxine History of diabetes: Continue Lantus,HDSSI, monitor fingerstick glucose Carbohydrate consistent diet Full code SCDs, heparin subcu twice daily DVT prophylaxis Disposition: Patient was evaluated by physical therapy, she was suggested for short-term rehab, versus home physical therapy, patient opted for home physical therapy, arrangements are being made. Attestations Medical Necessity Statement*: Needs to be in hospital for management of respiratory failure. Coding Level of Care Code Acute Code for g Fwd Diagnoses Acute respiratory failure with hypoxia and hypercapnia J96.01; J96.02 COPD (chronic obstructive pulmonary disease) J44.9 COPD type: unspecified COPD Morbid obesity E66.01 CHF (congestive heart failure) I50.9 UTI (urinary tract infection) N39.0 CKD (chronic kidney disease) N18.9 ELI (obstructive sleep apnea) G47.33 End stage COPD J44.9 Oxygen dependent Z99.81 Altered mental status R41.82
[2022-11-07 16:49] LABS: Glucose Point of Care 284 mg/dL (70-110)
[2022-11-07 16:49] LABS: Glucose Point of Care 366 mg/dL (70-110)
--- NOTE | 2022-11-07 19:44 | PC.NURSE ---
Patient and family member requesting to speak with social work therapist/case management in AM about discharge options.
[2022-11-07 21:08] LABS: Glucose Point of Care 394 mg/dL (70-110)
[2022-11-07] MEDS: insulin glargine 100 units/1 mL 30 UNIT SUBCUT (21:44)
[2022-11-08] MEDS: piperacillin-tazobactam 3.375 GM in sodium chloride 0.9% (plus) 50 ML IV ×2 (00:37→08:11)
[2022-11-08] MEDS: HYDROcodone-acetaminophen 5-325 mg Tablet 1 TAB PO ×2 (00:37→08:44)
[2022-11-08 02:57] VITALS: PULSE 60; RESP 16; O2SAT 95
[2022-11-08 04:00] VITALS: BP 120/72; PULSE 56; RESP 20; TEMP 36.4; O2SAT 96
[2022-11-08 05:32] LABS: Basophils % 0.4 %; Eosinophils # 0.1 10^3/uL (0.0-0.8); Eosinophils % 0.9 %; Hematocrit 36.5 % (37.0-47.0); Hemoglobin 11.4 g/dL (11.5-15.3); Lymphocytes # 2.4 10^3/uL (0.8-4.8); Lymphocytes % 30.3 %; Mean Corpuscular HGB Conc 31.2 g/dL (30.0-36.0); Mean Corpuscular Hemoglobin 30.7 pg (28.0-34.0); Mean Corpuscular Volume 98.4 fl (81-99); Mean Platelet Volume 10.1 fL (7.4-10.4); Monocytes # 0.8 10^3/uL (0.2-0.9); Monocytes % 10.1 %; Neutrophils # 4.55 10^3/uL (1.8-7.7); Neutrophils % 57.9 %; Nucleated Red Blood Cells % 0 %; Platelet Count 148 10^3/cmm (130-400); Red Blood Count 3.71 10^6/uL (4.1-5.3); Red Cell Distribution Width 14.6 % (12.1-15.1); White Blood Count 7.9 10^3/uL (4.0-10.0)
[2022-11-08 05:52] LABS: Anion Gap 6.6 (5-19); Blood Urea Nitrogen 20 mg/dL (8-23); Calcium 9.6 mg/dL (8.5-10.5); Chloride 90 mmol/L (98-107); Glomerular Filtration Rate 98.8 mL/min (90-130); Glucose 166 mg/dL (65-115); Osmolality Calculated 292 mOsm/kg (285-295); Potassium 3.6 mmol/L (3.5-5.1); Sodium 138 mmol/L (136-145)
[2022-11-08 05:56] LABS: Carbon Dioxide 45 mmol/L (22-29)
[2022-11-08 06:00] VITALS: PULSE 69
[2022-11-08] MEDS: TORSEmide 20 mg Tablet 40 MG PO (06:59)
[2022-11-08 07:00] LABS: Glucose Point of Care 163 mg/dL (70-110)
[2022-11-08 08:00] VITALS: BP 132/70; PULSE 71; PULSE 73; RESP 18; TEMP 36.6; O2SAT 96; O2SAT 99
[2022-11-08] MEDS: montelukast sodium 10 mg Tablet PO (08:10)
[2022-11-08] MEDS: levothyroxine 125 mcg Tablet PO (08:10)
[2022-11-08] MEDS: insulin lispro 100 unit/1 mL SUBCUT ×2 (08:11→11:51)
[2022-11-08] MEDS: gabapentin 300 mg Capsule 900 MG PO (08:11)
[2022-11-08] MEDS: predniSONE 20 mg Tablet 40 MG PO (08:11)
[2022-11-08] MEDS: ipratropium-albuterol 3 mL Neb INHALATION (08:59)
[2022-11-08] MEDS: budesonide 0.5 mg/2 mL Neb INHALATION (08:59)
--- NOTE | 2022-11-08 09:37 | PC.SOCIAL ---
Imm update Imm updated with patient at bedside. Copy of page 2 provided. Patient verbalized understanding. Copy in chart initialed, dated and timed.
[2022-11-08 11:13] LABS: Glucose Point of Care 290 mg/dL (70-110)
[2022-11-08 11:38] VITALS: BP 137/72; PULSE 69; RESP 16; TEMP 36.7; O2SAT 97
--- NOTE | 2022-11-08 12:06 | P.DS_ITS ---
Discharge Providers Date of Admission: 11/05/22 21:34 Date of Discharge: November 08, 2022 Attending Provider at Admission: Kerry Dunne MD Attending Provider at Discharge: Jaziel Pruitt MD Primary Care Provider: Amari Fitzgerald MD Diagnoses at Discharge Discharge Diagnosis (1) Acute respiratory failure with hypoxia and hypercapnia: Status: Acute (2) COPD (chronic obstructive pulmonary disease): Status: Acute Qualifiers: COPD type: unspecified COPD Qualified Code(s): J44.9 - Chronic obstructive pulmonary disease, unspecified (3) Morbid obesity: Status: Acute (4) CHF (congestive heart failure): Status: Acute (5) UTI (urinary tract infection): Status: Acute (6) CKD (chronic kidney disease): Status: Acute (7) ELI (obstructive sleep apnea): Status: Acute (8) End stage COPD: Status: Acute (9) Oxygen dependent: Status: Acute (10) Altered mental status: Status: Acute Reason for Visit Reason for Visit: respiratory distress Hospital Course Hospital Course 72-year-old female with past medical history of COPD Gold class D usually uses 3 L home oxygen, heart failure type unspecified, diabetes, hypothyroidism, chronic UTI, came in with chief complaint of AMS, when I interacted with the patient this morning she was complaining of worsening shortness of breath.She was also complaining of burning while passing urine.during the hospital stay she was ramos ged for Acute on chronic hypoxic hypercapnic respiratory failure secondary to COPD exacerbation:? decompensated heart failure.X-ray chest has shown: Mild interstitial pulmonary edema Serial ABG been was done,Procalcitonin 0.11,proBNP is 168: Which is low: It can be falsely low in obese patient. 2 D Echo:?LV systolic function is normal with EF of 55-60% Dilated left atrium Trace mitral regurgitation?Trace tricuspid regurgitation ?Trace pulmonic regurgitation. ?IVC is dilated Blood culture:NTD, urine culture negative, she was kept on steroids, DuoNebs inhalers, pulmonary toilet, BiPAP, supplemental oxygen as needed, IV Lasix, responded well to above medical management At the time of discharge altered mental status secondary to hypercapnic respiratory failure had completely resolved, she was alert oriented x3, shortness of breath had significantly improved, she was saturating well more or less at his baseline oxygen requirement, she responded very well to Lasix had v yan decent urine output, she was continued on home torsemide and spironolactone, during the hospital stay she was empirically kept on Zosyn, as she was given history of, resistant bug grown out of prior urine culture, urine culture this time was negative, she is on Macrobid at home for recurrent UTI was continued, overall she responded well to above medical management, she was advised to go to SNF for rehab, but she decided to go home, which is understandable, home physical therapy and home health is in the process of being arranged. She was discharged on prednisone 20 p.o. daily for 5 days. She will follow with PCP as outpatient.Was Discharged in stable condition to home. Physical Exam HENMT: COMMON NORMALS: normocephalic and atraumatic HEAD & SCALP: normocephalic and atraumatic Resp: COMMON NORMALS: clear to auscultation bilaterally AUSCULTATION: clear to auscultation bilaterally OTHER: Diminished air entry B/L Cardio: COMMON NORMALS: regular rate, regular rhythm, S1 normal heart sound present, S2 normal heart sound present, No gallops present (Cardio), No murmurs present (Cardio), No rub (Cardio) and Peripheral pulses 2+ throughout RATE: regular rate RHYTHM: regular rhythm HEART SOUNDS: S1 normal heart sound present and S2 normal heart sound present PERIPHERAL PULSES: Peripheral pulses 2+ throughout GI: COMMON NORMALS: Normal to inspection, nondistended, normoactive bowel sounds present, Soft to palpation, non-tender, No hepatosplenomegaly present and no masses AUSCULTATION: Yes normoactive bowel sounds PALPATION: Yes Soft to palpation and Yes No hepatosplenomegaly present RECTAL EXAM: deferred Extremity: COMMON NORMALS: no clubbing, cyanosis or edema and no pedal edema Urinary Catheter Management: Matos: Cath Placed During This Visit: yes Reason for Continuing Indwelling Catheter: Other Urinary Catheter Date of Insertion: 11/05/22 Urinary Catheter Time of Insertion: 20:51 Discharge Data Studies Completed and Pending Completed Studies During Hospitalization Category Date Time Status XR chest 1V portable [id number] Stat Exams 11/05/22 18:32 Completed CV. echo complete* [id number] Routine Ultrasound 11/06/22 00:45 Completed Pending at discharge Category Date Time Status ABG FULL [Arterial Blood Gas Full] Stat Lab 11/05/22 19:41 Results BMP [Basic Metabolic Panel] AM LABS Lab 11/09/22 04:00 Ordered BMP [Basic Metabolic Panel] AM LABS Lab 11/10/22 04:00 Ordered Blood Culture Stat Lab 11/06/22 01:45 Results CBC Auto Diff [Complete Blood Count w/Auto] AM LABS Lab 11/09/22 04:00 Ordered CBC Auto Diff [Complete Blood Count w/Auto] AM LABS Lab 11/10/22 04:00 Ordered Sputum Culture and Gram Stain Stat Lab 11/06/22 00:45 Uncollected Radiology Impressions Chest X-Ray 11/05/22 18:32 IMPRESSION: 1. Mild interstitial pulmonary edema. 2. Incidental/nonacute findings are listed in the report. Laboratory Results WBC 7.9 10^3/uL (4.0-10.0) 11/08/22 05:12 RBC 3.71 10^6/uL (4.1-5.3) L 11/08/22 05:12 Hgb 11.4 g/dL (11.5-15.3) L 11/08/22 05:12 Hct 36.5 % (37.0-47.0) L 11/08/22 05:12 MCV 98.4 fl (81-99) 11/08/22 05:12 MCH 30.7 pg (28.0-34.0) 11/08/22 05:12 MCHC 31.2 g/dL (30.0-36.0) 11/08/22 05:12 RDW 14.6 % (12.1-15.1) 11/08/22 05:12 Plt Count 148 10^3/cmm (130-400) 11/08/22 05:12 MPV 10.1 fL (7.4-10.4) 11/08/22 05:12 Neut % (Auto) 57.9 % 11/08/22 05:12 Lymph % (Auto) 30.3 % 11/08/22 05:12 [place] % (Auto) 10.1 % 11/08/22 05:12 Eos % (Auto) 0.9 % 11/08/22 05:12 Baso % (Auto) 0.4 % 11/08/22 05:12 Neut # (Auto) 4.55 10^3/uL (1.8-7.7) 11/08/22 05:12 Lymph # (Auto) 2.4 10^3/uL (0.8-4.8) 11/08/22 05:12 [place] # (Auto) 0.8 10^3/uL (0.2-0.9) 11/08/22 05:12 Eos # (Auto) 0.1 10^3/uL (0.0-0.8) 11/08/22 05:12 Baso # (Auto) 0.0 10^3/uL (0.0-0.1) 11/08/22 05:12 Nucleated RBC % (auto) 0 % 11/08/22 05:12 Nucleated RBCs # 0.0 /100WBC 11/08/22 05:12 Specimen Type Arterial 11/06/22 05:27 Sample Site Brachial, right 11/06/22 05:27 ABG pH 7.40 (7.35-7.45) 11/06/22 05:27 ABG pCO2 79.9 mmHg (35-45) H* 11/06/22 05:27 ABG pO2 66.6 mmHg (80.0-100.0) L 11/06/22 05:27 ABG HCO3 49.2 mmol/L (22-26) H 11/06/22 05:27 ABG O2 Saturation 97.7 11/05/22 19:41 ABG Base Excess 20.5 mmol/L (-2.0-2.0) H 11/06/22 05:27 Joaquín Test Pos 11/06/22 05:27 Hematocrit 35.0 % (37-47) L 11/06/22 05:27 Hgb O2 Saturation 94.8 % (95-100) L 11/05/22 19:41 Carboxyhemoglobin 2.2 %THgb (0.4-20.1) 11/05/22 19:41 Methemoglobin 0.8 % (0.4-1.5) 11/05/22 19:41 Total Hemoglobin 12.2 g/dL (12-16) 11/05/22 19:41 Sodium 142.0 mmol/L (131-143) 11/05/22 19:41 Potassium 4.2 mmol/L (3.5-5.0) 11/05/22 19:41 Glucose 226.0 mg/dL (70-115) H 11/05/22 19:41 Ionized Calcium 1.3 mmol/L (1.1-1.4) 11/05/22 19:41 O2 Delivery Device Bipap 11/06/22 05:27 O2 Liters/Min 3.0 % 11/05/22 19:41 FiO2 30.0 % 11/06/22 05:27 Spooling Supervisor ID Marshal 11/06/22 05:27 Sodium 138 mmol/L (136-145) 11/08/22 05:12 Potassium 3.6 mmol/L (3.5-5.1) 11/08/22 05:12 Chloride 90 mmol/L (98-107) L 11/08/22 05:12 Carbon Dioxide 45 mmol/L (22-29) H* 11/08/22 05:12 Anion Gap 6.6 (5-19) 11/08/22 05:12 BUN 20 mg/dL (8-23) 11/08/22 05:12 Creatinine 0.6 mg/dL (0.5-0.9) 11/08/22 05:12 GFR Calculation 98.8 mL/min (90-130) 11/08/22 05:12 Glucose 166 mg/dL (65-115) H 11/08/22 05:12 POC Glucose 290 mg/dL (70-110) H 11/08/22 11:04 Calculated Osmolality 292 mOsm/kg (285-295) 11/08/22 05:12 Lactic Acid 1.1 mmol/L (0.5-2.2) 11/05/22 19:33 Calcium 9.6 mg/dL (8.5-10.5) 11/08/22 05:12 Magnesium 1.7 mg/dL (1.7-2.3) 11/07/22 06:26 Total Bilirubin 0.6 mg/dL (0.15-1.2) 11/05/22 19:33 AST 26 U/L (0-32) 11/05/22 19:33 ALT 10 U/L (0-33) 11/05/22 19:33 Alkaline Phosphatase 110 U/L (35-105) H 11/05/22 19:33 NT-Pro-B Natriuret Pep 168 pg/mL (0-125) H 11/05/22 19:33 Total Protein 7.3 g/dL (6.6-8.7) 11/05/22 19:33 Albumin 3.2 g/dL (3.5-5.2) L 11/05/22 19:33 Globulin 4.1 g/dL (1.3-4.6) 11/05/22 19:33 Procalcitonin 0.11 ng/mL (0-0.5) 11/06/22 01:45 TSH 5.87 uIU/mL (0.27-4.20) H 11/06/22 01:45 Urine Color Yellow (Yellow) 11/06/22 02:35 Urine Appearance Cloudy (CLEAR) A 11/06/22 02:35 Urine pH 5 (5-7) 11/06/22 02:35 Ur Specific [place] 1.020 (1.005-1.030) 11/06/22 02:35 Urine Protein 1+ (Negative) H 11/06/22 02:35 Urine Glucose (UA) Norm (Normal) 11/06/22 02:35 Urine Ketones Negative (Negative) 11/06/22 02:35 Urine Blood Neg (Negative) 11/06/22 02:35 Urine Nitrate Negative (Negative) 11/06/22 02:35 Urine Bilirubin Neg (Negative) 11/06/22 02:35 Urine Urobilinogen Neg mg/dL (Negative) 11/06/22 02:35 Ur Leukocyte Esterase Trace (Negative) H 11/06/22 02:35 Urine RBC 0-4 /hpf (0-2) H 11/06/22 02:35 Urine WBC 10-15 /hpf (0-5) H 11/06/22 02:35 Ur Squamous Epith Cells None /hpf (0-5) 11/06/22 02:35 Amorphous Sediment Not Reportable 11/06/22 02:35 Urine Bacteria 2+ /hpf (NONE) H 11/06/22 02:35 Hyaline Casts 5-10 /lpf H 11/06/22 02:35 Coarse Granular Casts 0-4 /lpf H 11/06/22 02:35 Urine Mucus 3+ /hpf 11/06/22 02:35 Urine Yeast 1+ /hpf H 11/05/22 20:50 Vitals Last Vital Signs Temp 98.1 F 11/08/22 11:38 Pulse 69 11/08/22 11:38 Resp 16 11/08/22 11:38 BP 137/72 11/08/22 11:38 Pulse Ox 97 11/08/22 11:38 O2 Del Method Nasal Cannula 11/08/22 11:38 O2 Flow Rate 4 11/08/22 11:38 FiO2 30 11/08/22 02:57 Discharge Plan Discharge Patient Disposition: Home Condition: Stable Prescriptions: New prednisone 20 mg tablet 20 mg PO DAILY Qty: 5 0RF Continued alprazolam 0.5 mg tablet 0.5 mg PO TID PRN (Reason: Anxiety) gabapentin 300 mg capsule 900 mg PO TID clonazepam 0.5 mg tablet 1 mg PO BEDTIME torsemide 20 mg tablet 40 mg PO QAM allopurinol 100 mg Tablet 100 mg PO DAILY hydrocodone-acetaminophen 10-325 mg tablet 1 tab PO TID spironolactone 25 mg tablet 25 mg PO DAILY Humulin R U-500 (Conc) Insulin 500 unit/mL Solution See Rx Instructions .ROUTE .COMPLEX Rx Instructions: 70-90 units subcutaneously per sliding scale potassium citrate 10 mEq (1,080 mg) Tablet Extended Release 1,080 mg PO DAILY ropinirole 2 mg tablet 2 mg PO DAILY levothyroxine 125 mcg Tablet 125 mcg PO DAILY Singulair 10 mg Tablet 10 mg PO DAILY albuterol sulfate 90 mcg/actuation Hfa Aerosol Inhaler 1 inh INHALATION QID PRN (Reason: Shortness Of Breath Or Wheezing) Macrobid 100 mg Capsule 100 mg PO BID Rx Instructions: must administer with a meal/food Discharge Orders: Discharge Order (Routine); Ordered 11/07/22 Ordered By: Jaziel Pruitt Referrals: Amari Fitzgerald MD [Primary Care Provider] - 7-10 days (Please call [phone] (Dr Fitzgerald's office) tomorrow to set up an appointment.) Nancy Baird MD [Referring] - 7-10 days (Please call your PCP to set up a follow-up appointment.) Patient Instructions: Prednisone (By mouth) (predniSONE Intensol, Prednicot, Deltasone, Annetta), Using Oxygen at Home (DC), COPD (Chronic Obstructive Pulmonary Disease) (DC), Opioid Safety Discharge Attestations Time Spent in Discharge Care*: less than 30 min Quality Metrics Clinical Quality Measures [ No reported AMI, CVA or VTE this stay] Coding Level of Care Code Acute Code for Chg Fwd Diagnoses Acute respiratory failure with hypoxia and hypercapnia J96.01; J96.02 COPD (chronic obstructive pulmonary disease) J44.9 COPD type: unspecified COPD Morbid obesity E66.01 CHF (congestive heart failure) I50.9 UTI (urinary tract infection) N39.0 CKD (chronic kidney disease) N18.9 ELI (obstructive sleep apnea) G47.33 End stage COPD J44.9 Oxygen dependent Z99.81 Altered mental status R41.82
--- NOTE | 2022-11-08 12:35 | PC.NURSE ---
discharge instructions reviewed with pt and son, both verbalized understanding. IV removed, tip intact, pt tolerated well. rivera catheter removed, tip intact, pt tolerated well. assisted pt to dress and transfer to personal wheelchair with aid of family. accompanied pt and family down to private vehicle.
[2022-11-08 12:37] VITALS: BP 137/72; PULSE 69; RESP 16; TEMP 36.7; O2SAT 97
== END 2022-11-08 12:00 | disposition home health service (06) | DRG 291 ==
LOC: ER 21:34 → MEDSURG 22:40 → ICU 23:01 → MEDSURG 11-07 14:40
PROVIDERS: Admitting Provider Internal Medicine; Emergency Provider Emergency Medicine; PCP Urology; Visit Provider Internal Medicine
DX: I50.33 Acute on chronic diastolic (congestive) heart failure (principal); J96.21 Acute and chronic respiratory failure with hypoxia; J96.22 Acute and chronic respiratory failure with hypercapnia; J44.1 Chronic obstructive pulmonary disease with (acute) exacerbation; N39.0 Urinary tract infection, site not specified; Z68.43 Body mass index [BMI] 50.0-59.9, adult; Z99.81 Dependence on supplemental oxygen; E11.22 Type 2 diabetes mellitus with diabetic chronic kidney disease; N18.9 Chronic kidney disease, unspecified; E03.9 Hypothyroidism, unspecified; E66.01 Morbid (severe) obesity due to excess calories; Z79.891 Long term (current) use of opiate analgesic; Z79.4 Long term (current) use of insulin; Z79.51 Long term (current) use of inhaled steroids; G47.33 Obstructive sleep apnea (adult) (pediatric); G25.81 Restless legs syndrome; Z86.16 Personal history of COVID-19; G89.29 Other chronic pain; M54.9 Dorsalgia, unspecified; N20.9 Urinary calculus, unspecified
CPT/HCPCS: 36415; 36416; 36600; 51702; 71045; 80048; 80051; 80053; 81001; 81015; 82330; 82803; 82805; 82962; 83605; 83735; 83880; 84145; 84443; 85025; 87040; 87086; 93306; 94640; 94660; 94664; 96372; 96374; 96376; 97110; 97162; 97530; 99291; J1100; J1630; J1644; J1815; J1940; J2543; J7512; J7626

== ENCOUNTER → 2022-12-07 09:42 | Outpatient (BNVA) | payer MEDICARE, OTHER, SELFPAY | PROVIDERS: PCP Urology; Visit Provider Podiatrist Foot & Ankle Surgery | DX: I73.9 Peripheral vascular disease, unspecified (principal); B35.1 Tinea unguium; N18.9 Chronic kidney disease, unspecified; G62.9 Polyneuropathy, unspecified; E11.22 Type 2 diabetes mellitus with diabetic chronic kidney disease; E11.42 Type 2 diabetes mellitus with diabetic polyneuropathy; Z79.4 Long term (current) use of insulin | CPT/HCPCS: 11721; 99204 ==

== ENCOUNTER 2022-12-08 16:23 | Outpatient (CLI) | payer MEDICARE, OTHER, SELFPAY ==
[2022-12-08 17:23] LABS: Add Urine Microscopic? YES; Bilirubin Urine Neg (Negative); Blood Urine Neg (Negative); Glucose Urine UA 4+ (Normal); Ketones Urine Negative (Negative); Leukocyte Esterase Urine 2+ (Negative); Nitrate Urine Negative (Negative); Protein Urine Neg (Negative); Urine Appearance Cloudy (CLEAR); Urine Color Yellow (Yellow); Urobilinogen Urine Norm (Negative); pH Urine 5 (5-7)
[2022-12-08 17:28] LABS: Amorphous Sediment Urine TRACE /hpf; Bacteria Urine 4+ /hpf; Mucus Urine 1+ /hpf; Squamous Epithelial Cell Urine 0-4 /hpf (0-5); WBC Urine 80-100 /hpf (0-5)
[2022-12-08 17:29] LABS: Add Urine Culture? Yes
== END 2022-12-08 16:24 | disposition home or self-care (01) ==
LOC: LAB 16:28
PROVIDERS: PCP Urology; Visit Provider Emergency Medicine Emergency Medical Services
DX: Z01.89 Encounter for other specified special examinations (principal)
CPT/HCPCS: 81001; 87077; 87086; 87186

== ENCOUNTER 2023-01-11 20:00 | Outpatient (CLI) | payer OTHER, SELFPAY | END 2023-01-11 20:01 | disposition home or self-care (01) | LOC: SLEEP 01-12 06:11 | PROVIDERS: PCP Urology; Visit Provider Nurse Practitioner | DX: G47.33 Obstructive sleep apnea (adult) (pediatric) (principal) | CPT/HCPCS: 95811 ==

== ENCOUNTER 2023-01-18 20:36 | Emergency (ER) | payer OTHER, SELFPAY ==
[2023-01-18 21:04] VITALS: BP 126/76; PULSE 86; RESP 20; TEMP 36.9; O2SAT 95; BMI 50.7
--- NOTE | 2023-01-18 22:41 | CTR_ITS ---
PROCEDURE INFORMATION: Exam: CT Abdomen And Pelvis Without Contrast Exam date and time: 01/18/2023 11:29 PM Age: 72 years old Clinical indication: Abdominal pain; Flank; Right; Additional info: Abd pain TECHNIQUE: Imaging protocol: Computed tomography of the abdomen and pelvis without contrast. Radiation optimization: All CT scans at this facility use at least one of these dose optimization techniques: automated exposure control; mA and/or kV adjustment per patient size (includes targeted exams where dose is matched to clinical indication); or iterative reconstruction. REPORTING DATA: Count of CT and Cardiac NM exams in prior 12 months: This patient has received 0 known CTs and 0 known cardiac nuclear medicine studies in the 12 months prior to the current study. COMPARISON: CR (CHEST, ) 11/05/2022 6:38 PM RADIATION DOSE METRICS: Total DLP (mGy-cm): 1230.53 FINDINGS: Lungs: Mild basilar atelectasis. Liver: Normal. No mass. Gallbladder and bile ducts: Normal. No calcified stones. No ductal dilation. Pancreas: Normal. No ductal dilation. Spleen: Normal. No splenomegaly. Adrenal glands: Normal. No mass. Kidneys and ureters: 4 mm and 5 mm nonobstructing right renal calculi. No ureteral calculus or hydronephrosis. The left kidney is normal. Stomach and bowel: Diverticulosis of the colon. No diverticulitis. Appendix: The appendix is not visualized. No secondary signs of appendicitis. Intraperitoneal space: Unremarkable. No free air. No significant fluid collection. Vasculature: Arterial calcifications. No aneurysm. Lymph nodes: Unremarkable. No enlarged lymph nodes. Urinary bladder: Unremarkable as visualized. Reproductive: The uterus and ovaries are absent. Coarse calcification along the vaginal cuff. Bones/joints: Degenerative changes of the spine. No fracture. Soft tissues: Diastasis recti. 9.3 cm fat containing periumbilical hernia. CT/CT abdomen pelvis wo con [id number] IMPRESSION: 1. No acute findings. 2. Right renal calculi. 3. Diverticulosis of the colon.
[2023-01-18 22:53] LABS: Basophils % 0.4 %; Eosinophils # 0.2 10^3/uL (0.0-0.8); Eosinophils % 2.3 %; Hematocrit 43.6 % (37.0-47.0); Hemoglobin 13.2 g/dL (11.5-15.3); Lymphocytes # 2.7 10^3/uL (0.8-4.8); Lymphocytes % 25.5 %; Mean Corpuscular HGB Conc 30.3 g/dL (30.0-36.0); Mean Corpuscular Hemoglobin 30.3 pg (28.0-34.0); Mean Corpuscular Volume 100.2 fl (81-99); Mean Platelet Volume 10.2 fL (7.4-10.4); Neutrophils # 6.64 10^3/uL (1.8-7.7); Neutrophils % 62.4 %; Nucleated Red Blood Cells % 0 %; Platelet Count 163 10^3/cmm (130-400); Red Blood Count 4.35 10^6/uL (4.1-5.3); Red Cell Distribution Width 13.5 % (12.1-15.1); White Blood Count 10.6 10^3/uL (4.0-10.0)
[2023-01-18] MEDS: morphine 4 mg/mL SDV 1 mL 2 MG IVP (23:01)
[2023-01-18] MEDS: ondansetron 2 mg/ML SDV 2 mL 4 MG IVP (23:01)
[2023-01-18 23:11] LABS: Alanine Aminotransferase 18 U/L (0-33); Albumin Level 3.9 g/dL (3.5-5.2); Alkaline Phosphatase 175 U/L (35-105); Anion Gap 11.3 (5-19); Aspartate Amino Transferase 35 U/L (0-32); Blood Urea Nitrogen 15 mg/dL (8-23); Calcium 9.7 mg/dL (8.5-10.5); Chloride 81 mmol/L (98-107); Globulin 4.8 g/dL (1.3-4.6); Glomerular Filtration Rate 82.7 mL/min (90-130); Glucose 421 mg/dL (65-115); Lipase 21 U/L (13-60); Osmolality Calculated 293 mOsm/kg (285-295); Potassium 4.3 mmol/L (3.5-5.1); Sodium 132 mmol/L (136-145); Total Bilirubin 0.7 mg/dL (0.15-1.2); Total Protein 8.7 g/dL (6.6-8.7)
[2023-01-18 23:12] LABS: Carbon Dioxide 44 mmol/L (22-29)
[2023-01-18] MEDS: iohexol 350 mg/mL 500 mL Btl (per mL) IV (23:18)
[2023-01-18 23:27] LABS: Add Urine Microscopic? YES; Bilirubin Urine Neg (Negative); Blood Urine Trace (Negative); Glucose Urine UA 4+ (Normal); Ketones Urine Negative (Negative); Leukocyte Esterase Urine 2+ (Negative); Nitrate Urine Positive (Negative); Protein Urine Neg (Negative); Urine Appearance Cloudy (CLEAR); Urine Color Light yellow (Yellow); Urobilinogen Urine Neg (Negative); pH Urine 5 (5-7)
[2023-01-18 23:28] LABS: Add Urine Culture? Yes; Bacteria Urine 4+ /hpf; RBC Urine 0-4 /hpf (0-2); Squamous Epithelial Cell Urine 0-4 /hpf (0-5); WBC Urine 55-80 /hpf (0-5)
[2023-01-18] MEDS: cefTRIAXone 1,000 MG in sodium chloride 0.9% (plus) 50 ML 100 MG IV (23:52)
[2023-01-18 23:55] VITALS: BP 142/58; PULSE 85; RESP 19; O2SAT 99
--- NOTE | 2023-01-19 00:17 | W.ED.ABDPA2 ---
HPI - Abdominal Pain General: Chief Complaint: Abdominal Pain Stated Complaint: right side pain Time Seen by Provider: 01/18/23 22:10 Source: patient Mode of arrival: ambulatory Limitations: no limitations History of Present Illness: 72-year-old female who states she has been having right upper quadrant abdominal pain over the last 2 days states been a sharp pain she rates it a 7 out of 10 states been constant nature had some nausea denies any worsening improving factors. She has been afebrile she states she has had issues with her gallbladder before. Associated Symptoms: Denies chills, diarrhea, fever(s), nausea and vomiting Review of Systems Const: Denies: fever(s) or chills ENMT: Denies: throat pain or dental pain Card: Denies: chest pain Resp: Denies: dyspnea GI: Reports: abdominal pain; Denies: nausea, vomiting or diarrhea Musc: Denies: neck pain or back pain Skin/Breast: Denies: rash Neuro: Denies: headache(s) PFS ED PFSH: Medical History Acute respiratory failure with hypoxia and hypercapnia Altered mental status CHF (congestive heart failure) CKD (chronic kidney disease) COPD (chronic obstructive pulmonary disease) End stage COPD Morbid obesity ELI (obstructive sleep apnea) Oxygen dependent UTI (urinary tract infection) 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 Physical Exam Const: COMMON NORMALS: no acute distress, patient oriented x3 and healthy appearing HENMT: COMMON NORMALS: normocephalic and atraumatic HEAD & SCALP: normocephalic and atraumatic Eye: COMMON NORMALS: EOMs intact bilaterally Neck/C-Spine: COMMON NORMALS: full ROM and supple Chest: COMMONS NORMALS: normal inspection of the chest Resp: COMMON NORMALS: normal respiratory effort, No retractions, No use of accessory muscles and clear to auscultation bilaterally AUSCULTATION: clear to auscultation bilaterally Cardio: COMMON NORMALS: regular rate, regular rhythm and No murmurs present (Cardio) RATE: regular rate RHYTHM: regular rhythm GI: COMMON NORMALS: Normal to inspection, nondistended, normoactive bowel sounds present, Soft to palpation and no masses PALPATION: Yes Soft to palpation OTHER: slight ruq tenderness Extremity: COMMON NORMALS: normal to inspection and full ROM Neuro: COMMON NORMALS: patient oriented x3, moves all extremities and no focal motor deficits Psych: COMMON NORMALS: mental status grossly normal, Normal thought process present and cooperative THOUGHT PROCESS: Normal thought process present Skin: COMMON NORMALS: no rashes or lesions noted and no wounds GENERAL SKIN EXAM: no rashes or lesions noted Course Vital Signs: Vital signs: Vital Signs Temperature 98.4 F 01/18/23 21:04 Pulse Rate 85 01/18/23 23:55 Respiratory Rate 19 H 01/18/23 23:55 Blood Pressure 142/58 01/18/23 23:55 Pulse Oximetry 99 01/18/23 23:55 Oxygen Delivery Me thod Nasal Cannula 01/18/23 23:55 Oxygen Flow Rate 3 01/18/23 23:55 MDM - Abdominal Pain Medical Decision Making Patient presents with abdominal pain white count here is normal CT scan shows no acute abnormalities no signs of cholecystitis or gallstones she does have a UTI will prescribe her Zofran and Keflex for home she is to follow-up with her PCP and return if worsening. Medical Records I reviewed the patient's medical records. Lab Data I reviewed the patient's lab results. 01/18/23 22:49 01/18/23 22:49 Labs/Radiology: Radiology Impressions Abdomen/Pelvis CT 01/18/23 22:41 IMPRESSION: 1. No acute findings. 2. Right renal calculi. 3. Diverticulosis of the colon. Laboratory Results WBC 10.6 10^3/uL (4.0-10.0) H 01/18/23 22:49 Corrected WBC Cancelled 01/18/23 22:33 RBC 4.35 10^6/uL (4.1-5.3) 01/18/23 22:49 Hgb 13.2 g/dL (11.5-15.3) 01/18/23 22:49 Hct 43.6 % (37.0-47.0) 01/18/23 22:49 MCV 100.2 fl (81-99) H 01/18/23 22:49 MCH 30.3 pg (28.0-34.0) 01/18/23 22:49 MCHC 30.3 g/dL (30.0-36.0) 01/18/23 22:49 RDW 13.5 % (12.1-15.1) 01/18/23 22:49 Plt Count 163 10^3/cmm (130-400) 01/18/23 22:49 MPV 10.2 fL (7.4-10.4) 01/18/23 22:49 Gran % Cancelled 01/18/23 22:33 Neut % (Auto) 62.4 % 01/18/23 22:49 Lymph % (Auto) 25.5 % 01/18/23 22:49 [place] % (Auto) 9.0 % 01/18/23 22:49 Eos % (Auto) 2.3 % 01/18/23 22:49 Baso % (Auto) 0.4 % 01/18/23 22:49 Neut # (Auto) 6.64 10^3/uL (1.8-7.7) 01/18/23 22:49 Lymph # (Auto) 2.7 10^3/uL (0.8-4.8) 01/18/23 22:49 [place] # (Auto) 1.0 10^3/uL (0.2-0.9) H 01/18/23 22:49 Eos # (Auto) 0.2 10^3/uL (0.0-0.8) 01/18/23 22:49 Baso # (Auto) 0.0 10^3/uL (0.0-0.1) 01/18/23 22:49 Absolute Gran (auto) Cancelled 01/18/23 22:33 Nucleated RBC % (auto) 0 % 01/18/23 22:49 Nucleated RBCs # 0.0 /100WBC 01/18/23 22:49 Sodium 132 mmol/L (136-145) L 01/18/23 22:49 Potassium 4.3 mmol/L (3.5-5.1) 01/18/23 22:49 Chloride 81 mmol/L (98-107) L 01/18/23 22:49 Carbon Dioxide 44 mmol/L (22-29) H* 01/18/23 22:49 Anion Gap 11.3 (5-19) 01/18/23 22:49 BUN 15 mg/dL (8-23) 01/18/23 22:49 Creatinine 0.7 mg/dL (0.5-0.9) 01/18/23 22:49 GFR Calculation 82.7 mL/min (90-130) L 01/18/23 22:49 Glucose 421 mg/dL (65-115) H 01/18/23 22:49 Calculated Osmolality 293 mOsm/kg (285-295) 01/18/23 22:49 Calcium 9.7 mg/dL (8.5-10.5) 01/18/23 22:49 Total Bilirubin 0.7 mg/dL (0.15-1.2) 01/18/23 22:49 AST 35 U/L (0-32) H 01/18/23 22:49 ALT 18 U/L (0-33) 01/18/23 22:49 Alkaline Phosphatase 175 U/L (35-105) H 01/18/23 22:49 Total Protein 8.7 g/dL (6.6-8.7) 01/18/23 22:49 Albumin 3.9 g/dL (3.5-5.2) 01/18/23 22:49 Globulin 4.8 g/dL (1.3-4.6) H 01/18/23 22:49 Lipase 21 U/L (13-60) 01/18/23 22:49 Urine Color Light yellow (Yellow) 01/18/23 22:59 Urine Appearance Cloudy (CLEAR) A 01/18/23 22:59 Urine pH 5 (5-7) 01/18/23 22:59 Ur Specific [place] 1.010 (1.005-1.030) 01/18/23 22:59 Urine Protein Neg (Negative) 01/18/23 22:59 Urine Glucose (UA) 4+ (Normal) H 01/18/23 22:59 Urine Ketones Negative (Negative) 01/18/23 22:59 Urine Blood Trace (Negative) H 01/18/23 22:59 Urine Nitrate Positive (Negative) H 01/18/23 22:59 Urine Bilirubin Neg (Negative) 01/18/23 22:59 Urine Urobilinogen Neg mg/dL (Negative) 01/18/23 22:59 Ur Leukocyte Esterase 2+ (Negative) H 01/18/23 22:59 Urine RBC 0-4 /hpf (0-2) H 01/18/23 22:59 Urine WBC 55-80 /hpf (0-5) H 01/18/23 22:59 Ur Squamous Epith Cells 0-4 /hpf (0-5) H 01/18/23 22:59 Amorphous Sediment Not Reportable 01/18/23 22:59 Urine Bacteria 4+ /hpf (NONE) H 01/18/23 22:59 Discharge Plan Discharge Patient Disposition: Home Clinical Impression: Acute cystitis Condition: Stable Prescriptions: New cephalexin 500 mg capsule 500 mg PO TID 7 Days Qty: 21 0RF ondansetron 4 mg tablet,disintegrating 4 mg PO Q6H PRN (Reason: nausea and vomiting) Qty: 14 0RF No Action alprazolam 0.5 mg tablet 0.5 mg PO TID PRN (Reason: Anxiety) gabapentin 300 mg capsule 900 mg PO TID clonazepam 0.5 mg tablet 1 mg PO BEDTIME torsemide 20 mg tablet 40 mg PO QAM allopurinol 100 mg Tablet 100 mg PO DAILY hydrocodone-acetaminophen 10-325 mg tablet 1 tab PO TID spironolactone 25 mg tablet 25 mg PO DAILY Humulin R U-500 (Conc) Insulin 500 unit/mL Solution See Rx Instructions .ROUTE .COMPLEX Rx Instructions: 70-90 units subcutaneously per sliding scale potassium citrate 10 mEq (1,080 mg) Tablet Extended Release 1,080 mg PO DAILY ropinirole 2 mg tablet 2 mg PO DAILY levothyroxine 125 mcg Tablet 125 mcg PO DAILY Singulair 10 mg Tablet 10 mg PO DAILY albuterol sulfate 90 mcg/actuation Hfa Aerosol Inhaler 1 inh INHALATION QID PRN (Reason: Shortness Of Breath Or Wheezing) Macrobid 100 mg Capsule 100 mg PO BID Rx Instructions: must administer with a meal/food prednisone 20 mg tablet 20 mg PO DAILY Qty: 5 0RF Discharge Orders: Discharge ED (Routine); Ordered 01/19/23 Ordered By: Jarrell Torres Referrals: Nancy Baird MD [Primary Care Provider] - 1-3 days Discharge Diet: Advance as tolerated Discharge Activity: Resume usual activity Patient Instructions: Urinary Tract Infection in Women (ED), Acute Nausea and Vomiting (ED) Coding Level of Care Code ED [employer]er for Carla Sterling
[2023-01-19 00:30] VITALS: BP 146/56; PULSE 89; RESP 16; O2SAT 96
== END 2023-01-19 00:49 | disposition home or self-care (01) ==
PROVIDERS: Emergency Provider Emergency Medicine; PCP Internal Medicine
DX: N30.00 Acute cystitis without hematuria (principal)
CPT/HCPCS: 36415; 51701; 74176; 80053; 81001; 83690; 85025; 87077; 87086; 87186; 96374; 96375; 99285; J0696; J2270; J2405; Q9967

== ENCOUNTER → 2023-02-15 10:40 | Outpatient (BNVA) | payer MEDICARE, OTHER, SELFPAY | PROVIDERS: PCP Internal Medicine; Visit Provider Podiatrist Foot & Ankle Surgery | DX: B35.1 Tinea unguium (principal); N18.9 Chronic kidney disease, unspecified; I73.9 Peripheral vascular disease, unspecified; G62.9 Polyneuropathy, unspecified; E11.42 Type 2 diabetes mellitus with diabetic polyneuropathy; E11.22 Type 2 diabetes mellitus with diabetic chronic kidney disease; Z79.4 Long term (current) use of insulin | CPT/HCPCS: 11721 ==

== ENCOUNTER 2023-04-27 20:00 | Outpatient (CLI) | payer OTHER, SELFPAY ==
--- NOTE | 2023-05-05 12:51 | PC.SOCIAL ---
Sleep study [facility] to the [facility]
== END 2023-04-27 20:01 | disposition home or self-care (01) ==
PROVIDERS: PCP Internal Medicine; Visit Provider Nurse Practitioner
DX: G47.33 Obstructive sleep apnea (adult) (pediatric) (principal)
CPT/HCPCS: 95811

== ENCOUNTER 2023-05-01 11:26 | Inpatient (IN) | payer OTHER, SELFPAY ==
[2023-05-01] VITALS (28 sets, daily range): BP systolic 116–165; BP diastolic 66–110; PULSE 54–86; RESP 12–21; TEMP 36.7–36.8; O2SAT 95–100; BMI 51.1
--- NOTE | 2023-05-01 11:35 | XRR_ITS ---
PROCEDURE INFORMATION: Exam: XR Chest Exam date and time: 05/01/2023 1:05 PM Age: 72 years old Clinical indication: Cough and dyspnea; Additional info: Dyspnea/cough TECHNIQUE: Imaging protocol: Radiologic exam of the chest. Views: 1 view. COMPARISON: CR (CHEST, ) 11/05/2022 6:38 PM FINDINGS: Lungs: Increased bilateral interstitial markings. Pleural spaces: No pneumothorax. Mild blunting of the bilateral costophrenic angles likely representing small pleural effusions. Heart/Mediastinum: Enlarged cardiac silhouette. Bones/joints: No acute fracture. XR/XR chest 1V portable [id number] IMPRESSION: Cardiomegaly with mild pulmonary edema and small bilateral pleural effusions.
--- NOTE | 2023-05-01 11:37 | ED_ITS ---
HPI - General Adult 2 General: Chief complaint: Altered Mental Status Stated complaint: AMS Time Seen by Provider: 05/01/23 11:34 Source: EMS Mode of arrival: ambulatory History of Present Illness: 72-year-old female presents emergency ro om family reports that Nonresponsive via EMS. Beginning around 10 AM yesterday she was nonresponsive. Have difficult time breathing. She has had problems with hypercapnic respiratory failure in the past. History from EMS and old records she is unable to provide any history at this time. Onset (ago): minute(s) Relieving factors: none Exacerbating factors: none Associated symptoms: Reports confusion and dyspnea Treatments prior to arrival: none Review of Systems 2 General: Reports: ROS unobtainable due to mental status Resp: Reports: dyspnea Neuro: Reports: confusion PFSH ED 2 PFSH: Medical History (Updated 05/01/23 @ 17:21 by Anthony Jones DO) Acute respiratory failure with hypoxia and hypercapnia Altered mental status Oxygen dependent End stage COPD ELI (obstructive sleep apnea) CKD (chronic kidney disease) UTI (urinary tract infection) CHF (congestive heart failure) Morbid obesity COPD (chronic obstructive pulmonary disease) 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 Physical Exam 2 Const: GENERAL APPEARANCE: lethargic NUTRITIONAL APPEARANCE: obese O RIENTATION/CONSCIOUSNESS: Yes lethargic HENMT: COMMON NORMALS: normocephalic, atraumatic and hearing grossly normal bilaterally HEAD & SCALP: normocephalic and atraumatic Resp: EFFORT & INSPECTION: Yes decreased respiratory effort and Yes uses accessory muscles AUSCULTATION: crackles, rhonchi and diminished lung sounds Cardio: COMMON NORMALS: regular rhythm and No murmurs present (Cardio) R ATE: tachycardic RHYTHM: regular rhythm GI: COMMON NORMALS: Soft to palpation and No hepatosplenomegaly present A USCULTATION: Yes normoactive bowel sounds PALPATION: Yes Soft to palpation, No Tenderness to palpation present (GI), No Guarding due to palpation present (GI) and Yes No hepatosplenomegaly present OTHER: Large umbilical hernia nonstrangulated Extremity: COMMON NORMALS: normal to inspection, capillary refill normal, no clubbing, cyanosis or edema, no calf tenderness and no pedal edema Neuro: SENSORIUM/ORIENTATION: Yes lethargic Skin: COMMON NORMALS: no rashes or lesions noted GENERAL SKIN EXAM: no rashes or lesions noted Procedures Intubation Time out performed: Yes sedative: Etomidate Mg Given: 30 paralytic: Succinylcholine Mg Given: 120 Laryngoscope: fiber optic video scope Assist Device Used: fiber optic device ET Tube Size: 8.5 ET Tube Uncuffed: No Tube Secured Depth (cm): 21 Tube Placement Confirmation: visualized tube passing through cords, equal breath sounds bilaterally, no breath sounds over epigastrium and confirmation by capnometry Patient Tolerated Procedure: well Intubation Complications: none Course 2 Vital Signs: Vital signs: Vital Signs Temperature 98.1 F 05/01/23 11:43 Pulse Rate 76 05/01/23 15:10 Respiratory Rate 16 05/01/23 15:07 Blood Pressure 160/66 05/01/23 11:43 Pulse Oximetry 100 05/01/23 15:07 Oxygen Delivery Me thod Mechanical Ventil ation 05/01/23 15:07 Oxygen Flow Rate 4 05/01/23 11:43 Fraction of Inspir ed Oxygen 45 05/01/23 16:47 MDM - General Adult Medical Decision Making Hypercapnic respiratory failure after a trial of BiPAP she had no improvement. After discussion with family we elected to intubate the patient for hypercapnic respiratory failure. Will admit to the ICU discussed with hospitalist orders written Medical Records I reviewed the patient's medical records. Lab Data I reviewed the patient's lab results. 05/01/23 12:23 05/01/23 12:23 Radiology Impressions Chest X-Ray 05/01/23 11:35 IMPRESSION: Cardiomegaly with mild pulmonary edema and small bilateral pleural effusions. Laboratory Results WBC 8.99 10^3/uL (3.29-11.43) 05/01/23 12: RBC 3.99 10^6/uL (3.85-5.65) 05/01/23 12: Hgb 12.40 g/dL (11.27-16.99) 05/01/23 12: Hct 41.1 % (36-47) 05/01/23 12: MCV 103.0 fl (85-98) H 05/01/23 12: MCH 31.1 pg (27-33) 05/01/23 12: MCHC 30.2 g/dL (30-55) 05/01/23 12: RDW 13.6 % (12.1-15.1) 05/01/23 12: Plt Count 154 10^3/cmm (157-399) L 05/01/23 12: MPV 10.3 fL (7.4-10.4) 05/01/23 12:23 Neut % (Auto) 72.2 % 05/01/23 12:23 Lymph % (Auto) 19.5 % 05/01/23 12:23 [place] % (Auto) 6.2 % 05/01/23 12:23 Eos % (Auto) 0.6 % 05/01/23 12: Baso % (Auto) 0.4 % 05/01/23 12: Neut # (Auto) 6.49 10^3/uL (1.8-7.7) 05/01/23 12: Lymph # (Auto) 1.8 10^3/uL (0.8-4.8) 05/01/23 12: [place] # (Auto) 0.6 10^3/uL (0.2-0.9) 05/01/23 12:23 Eos # (Auto) 0.1 10^3/uL (0.0-0.8) 05/01/23 12: Baso # (Auto) 0.0 10^3/uL (0.0-0.1) 05/01/23 12: Nucleated RBC % (auto) 0 % 05/01/23 12: Nucleated RBCs # 0.0 /100WBC 05/01/23 12: Specimen Type Arterial 05/01/23 16:15 Sample Site Brachial, left 05/01/23 16:15 ABG pH 7.60 (7.35-7.45) H* 05/01/23 16:15 ABG pCO2 42.2 mmHg (35-45) 05/01/23 16:15 ABG pO2 192.0 mmHg (80.0-100.0) H 05/01/23 16:15 ABG PO2/FiO2 Ratio 0 05/01/23 16:15 ABG HCO3 41.4 mmol/L (22-26) H 05/01/23 16:15 ABG O2 Saturation > 100.0 05/01/23 16:15 ABG Base Excess 17.9 mmol/L (-2.0-2.0) H 05/01/23 16:15 Joaquín Test Pos 05/01/23 16:15 A-a O2 Gradient 23.1 mmHg (5-10) H 05/01/23 16:15 Hematocrit 39.1 % (37-47) 05/01/23 16:15 Hgb O2 Saturation 97.8 % (95-100) 05/01/23 16:15 Carboxyhemoglobin 3.3 %THgb (0.4-20.1) 05/01/23 16:15 Methemoglobin < 0.0 % (0.4-1.5) L 05/01/23 16:15 Total Hemoglobin 12.8 g/dL (12-16) 05/01/23 16:15 Sodium 136.0 mmol/L (131-143) 05/01/23 16:15 Potassium 5.4 mmol/L (3.5-5.0) H 05/01/23 16:15 Glucose 368.0 mg/dL (70-115) H 05/01/23 16:15 Ionized Calcium 1.1 mmol/L (1.1-1.4) 05/01/23 16:15 O2 Delivery Device Vent 05/01/23 16:15 O2 Liters/Min 3.5 % 05/01/23 11:30 FiO2 60.0 % 05/01/23 16:15 Tidal Volume 0.45 05/01/23 16:15 PEEP 8.0 cmH20 05/01/23 16:15 Propeller Engineer ID Broma 05/01/23 16:15 Sodium 141 mmol/L (136-145) 05/01/23 12:23 Potassium 5.2 mmol/L (3.5-5.1) H 05/01/23 12:23 Chloride 94 mmol/L (98-107) L 05/01/23 12:23 Carbon Dioxide 44 mmol/L (22-29) H* 05/01/23 12:23 Anion Gap 8.2 (5-19) 05/01/23 12:23 BUN 15 mg/dL (8-23) 05/01/23 12:23 Creatinine 0.6 mg/dL (0.5-0.9) 05/01/23 12:23 GFR Calculation 98.8 mL/min (90-130) 05/01/23 12:23 Glucose 282 mg/dL (65-115) H 05/01/23 12:23 POC Glucose 253 mg/dL (70-110) H 05/01/23 11:59 Calculated Osmolality 303 mOsm/kg (285-295) H 05/01/23 12:23 Calcium 9.4 mg/dL (8.5-10.5) 05/01/23 12:23 Total Bilirubin 0.7 mg/dL (0.15-1.2) 05/01/23 12:23 AST 29 U/L (0-32) 05/01/23 12:23 ALT 18 U/L (0-33) 05/01/23 12:23 Alkaline Phosphatase 145 U/L (35-105) H 05/01/23 12: Creatine Kinase 24 U/L (26-192) L 05/01/23 12:23 Troponin T Baseline 26 ng/L (0-10) H 05/01/23 12:23 Troponin T 120 Minute 24.99 ng/L (0-10) H 05/01/23 15:23 Delta Troponin T -1.01 ABS# (0-10) L 05/01/23 15:23 NT-Pro-B Natriuret Pep 259 pg/mL (0-125) H 05/01/23 12:23 Total Protein 7.4 g/dL (6.6-8.7) 05/01/23 12:23 Albumin 3.4 g/dL (3.5-5.2) L 05/01/23 12:23 Globulin 4.0 g/dL (1.3-4.6) 05/01/23 12:23 Procalcitonin 0.08 ng/mL (0-0.5) 05/01/23 12:23 Urine Color Yellow (Yellow) 05/01/23 13:30 Urine Appearance Clear (CLEAR) 05/01/23 13:30 Urine pH 5 (5-7) 05/01/23 13:30 Ur Specific [place] 1.025 (1.005-1.030) 05/01/23 13:30 Urine Protein Neg (Negative) 05/01/23 13:30 Urine Glucose (UA) 2+ (Normal) H 05/01/23 13:30 Urine Ketones 1+ (Negative) H 05/01/23 13:30 Urine Blood Neg (Negative) 05/01/23 13:30 Urine Nitrate Negative (Negative) 05/01/23 13:30 Urine Bilirubin Neg (Negative) 05/01/23 13:30 Urine Urobilinogen Norm mg/dL (Negative) 05/01/23 13:30 Ur Leukocyte Esterase Negative (Negative) 05/01/23 13:30 Influenza Type A Ag negative (Negative) 05/01/23 12:17 Influenza Type B Ag negative (Negative) 05/01/23 12:17 All radiology interpretation(s) finalized by discharge Critical Care Time 2 Critical Care Time: Critical Care Time: Yes Total Critical Care Time: 60 Attestation: The high probability of a clinically significant, sudden or life threatening deterioration of the patient's respiratory system(s) required my full and direct attention, intervention and personal management. The critical care time is as shown. This time is in addition to time spent performing any reported procedures but includes the following: [x] Data and vital sign review and interpretation [x] Patient assessment, examination and intervention [x] Documentation [x] Medication orders and management Discharge Plan Discharge Patient Disposition: Admitted As Inpatient Clinical Impression: Acute respiratory failure with hypoxia and hypercapnia, CO2 narcosis, Type 2 diabetes mellitus, COPD exacerbation Condition: Stable Coding Level of Care Code ED Direct Customer Service Representative for Carla Sterling
[2023-05-01 11:42] LABS: ABG PH Result 7.28 (7.35-7.45); Arterial Blood Gas Hematocrit 39.5 % (37-47); Base Excess ABG 15.5 mmol/L (-2.0-2.0); Blood Gas Allen Test Pos; Blood Gas LPM 3.5 %; Blood Gas Operator Identificat BROMA; Blood Gas Sample Site Radial, right; Blood Gas Sample Type Arterial; Carboxyhemoglobin 2.7 %THgb (0.4-20.1); HGB O2 Sat 93.5 % (95-100); Ionized Calcium Level - ABG 1.2 mmol/L (1.1-1.4); Methemoglobin 0.8 % (0.4-1.5); Oxygen Device NC; Oxygen Saturation ABG 96.7; PO2 ABG 81.4 mmHg (80.0-100.0); Potassium Level - ABG 4.9 mmol/L (3.5-5.0); Total Hemoglobin 12.9 g/dL (12-16)
--- NOTE | 2023-05-01 11:56 | ECG_ITS ---
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 Measurements Intervals [place] Rate: 85 P: -58 OR: 233 QRS: -54 QRSD: 99 T: 76 QT: 371 QTc: 442 Interpretive Statements ECTOPIC ATRIAL RHYTHM WITH FIRST DEGREE AV BLOCK LEFT ANTERIOR FASCICULAR BLOCK [QRS AXIS <= -45, QR IN I, RS IN II] POSSIBLE ANTERIOR MYOCARDIAL INFARCTION , OF INDETERMINATE AGE [30 ms Q WAVE IN V3/V4, OR R < 0.2 mV IN V4] Compared to ECG 11/10/2014 00:42:22 Ectopic atrial rhythm now present Left anterior fascicular block now present Myocardial infarct finding now present Sinus rhythm no longer present Electronically Signed On 05-03-2023 8:18:33 ADOBE BALL MIXER by Nathan Hernandez M.D. [id number]
[2023-05-01 12:02] LABS: Glucose Point of Care 253 mg/dL (70-110)
[2023-05-01] MEDS: dexamethasone 10 mg/mL INJ IM (12:15)
[2023-05-01] MEDS: ondansetron 2 mg/ML SDV 2 mL 4 MG IVP (12:15)
[2023-05-01 12:51] LABS: Basophils % 0.4 %; Eosinophils # 0.1 10^3/uL (0.0-0.8); Eosinophils % 0.6 %; Hematocrit 41.1 % (36-47); Lymphocytes # 1.8 10^3/uL (0.8-4.8); Lymphocytes % 19.5 %; Mean Corpuscular HGB Conc 30.2 g/dL (30-55); Mean Corpuscular Hemoglobin 31.1 pg (27-33); Mean Platelet Volume 10.3 fL (7.4-10.4); Monocytes # 0.6 10^3/uL (0.2-0.9); Monocytes % 6.2 %; Neutrophils # 6.49 10^3/uL (1.8-7.7); Neutrophils % 72.2 %; Nucleated Red Blood Cells % 0 %; Platelet Count 154 10^3/cmm (157-399); Red Blood Count 3.99 10^6/uL (3.85-5.65); Red Cell Distribution Width 13.6 % (12.1-15.1); White Blood Count 8.99 10^3/uL (3.29-11.43)
[2023-05-01 13:10] LABS: Alanine Aminotransferase 18 U/L (0-33); Albumin Level 3.4 g/dL (3.5-5.2); Alkaline Phosphatase 145 U/L (35-105); Anion Gap 8.2 (5-19); Aspartate Amino Transferase 29 U/L (0-32); Blood Urea Nitrogen 15 mg/dL (8-23); Calcium 9.4 mg/dL (8.5-10.5); Chloride 94 mmol/L (98-107); Creatine Phosphokinase 24 U/L (26-192); Glomerular Filtration Rate 98.8 mL/min (90-130); Glucose 282 mg/dL (65-115); Osmolality Calculated 303 mOsm/kg (285-295); Potassium 5.2 mmol/L (3.5-5.1); Sodium 141 mmol/L (136-145); Total Bilirubin 0.7 mg/dL (0.15-1.2); Total Protein 7.4 g/dL (6.6-8.7)
[2023-05-01 13:12] LABS: Influenza A by IFA negative (Negative); Influenza B by IFA negative (Negative)
[2023-05-01 13:12] LABS: Carbon Dioxide 44 mmol/L (22-29)
[2023-05-01] MEDS: FUROsemide 10 mg/mL SDV 4mL 40 MG IVP ×2 (13:31→18:37)
[2023-05-01] MEDS: morphine 4 mg/mL SDV 1 mL IVP (13:32)
[2023-05-01 13:36] LABS: NT Pro B Type Natriuretic Pept 259 pg/mL (0-125); Procalcitonin 0.08 ng/mL (0-0.5); Troponin(5th) Baseline 26 ng/L (0-10)
--- NOTE | 2023-05-01 13:41 | ECG_ITS ---
[facility] Test Date: 2023-05-01 Pat Name: Cara Stevens Department: Room: Gender: Female Change Over: : 1950 Requested By: Anthony Nguyen Order Number: [id number] Liliana MD: Nathan Hernandez M.D. Measurements Intervals [place] Rate: 76 P: -77 [place]: 172 QRS: -51 QRSD: 106 T: 65 QT: 392 QTc: 441 Interpretive Statements ECTOPIC ATRIAL RHYTHM LEFT ANTERIOR FASCICULAR BLOCK [QRS AXIS <= -45, QR IN I, RS IN II] ANTEROSEPTAL MYOCARDIAL INFARCTION , OF INDETERMINATE AGE [40+ ms Q WAVE IN V1-V4] Compared to ECG 05/01/2023 11:56:17 First degree AV block no longer present Myocardial infarct finding still present Electronically Signed On 05-03-2023 8:20:32 RN ONCOLOGY by Nathan Henrandez M.D. [id number]
[2023-05-01 13:49] LABS: Add Urine Microscopic? NO; Bilirubin Urine Neg (Negative); Blood Urine Neg (Negative); Glucose Urine UA 2+ (Normal); Ketones Urine 1+ (Negative); Leukocyte Esterase Urine Negative (Negative); Nitrate Urine Negative (Negative); Protein Urine Neg (Negative); Specific Gravity, Urine 1.025 (1.005-1.030); Urine Appearance Clear (CLEAR); Urine Color Yellow (Yellow); Urobilinogen Urine Norm (Negative); pH Urine 5 (5-7)
[2023-05-01 13:50] LABS: Charge for UA Resulting for Rev
[2023-05-01 14:19] LABS: ABG PH Result 7.27 (7.35-7.45); Alveolar-Arterial Oxygen Gradi 10.3 mmHg (5-10); Base Excess ABG 15.4 mmol/L (-2.0-2.0); Blood Gas Operator Identificat glc; Blood Gas Sample Site Brachial, left; Blood Gas Sample Type Arterial; Carboxyhemoglobin 2.6 %THgb (0.4-20.1); HGB O2 Sat 94.3 % (95-100); Ionized Calcium Level - ABG 1.2 mmol/L (1.1-1.4); Methemoglobin 0.6 % (0.4-1.5); Oxygen Device BIPAP; Oxygen Saturation ABG 97.3; PO2 ABG 84.7 mmHg (80.0-100.0); PO2 FiO2 Ratio Arterial Blood 0; Total Hemoglobin 13.1 g/dL (12-16)
[2023-05-01] MEDS: succinylcholine 20 mg/mL SDV 10mL 120 MG IVP (15:04)
[2023-05-01] MEDS: etomidate 2 mg/mL INJ SDV 10 mL 30 MG IVP (15:04)
[2023-05-01] MEDS: midazolam hcl 100 MG/100 ML BAG IV (15:05)
[2023-05-01] MEDS: ipratropium-albuterol 3 mL Neb 6 ML INHALATION (15:06)
[2023-05-01] MEDS: fentaNYL 1,000 MCG/100 ML BAG 2.5 MCG IV (15:06)
--- NOTE | 2023-05-01 15:14 | PC.NURSE ---
Wasted 10 mg of etomidate and 80 mg of succinylcholine witnessed by Janice Kumar RN
[2023-05-01 15:52] LABS: Troponin 5 2HR 24.99 ng/L (0-10); Troponin 5 2HR Delta -1.01 ABS# (0-10)
[2023-05-01] MEDS: propofol 1,000 MG/100 ML INJ 21.77 MG IV ×2 (16:21→20:00)
[2023-05-01 16:31] LABS: ABG PCO2 42.2 mmHg (35-45); Alveolar-Arterial Oxygen Gradi 23.1 mmHg (5-10); Arterial Blood Gas Hematocrit 39.1 % (37-47); Base Excess ABG 17.9 mmol/L (-2.0-2.0); Blood Gas Allen Test Pos; Blood Gas Operator Identificat BROMA; Blood Gas Sample Site Brachial, left; Blood Gas Sample Type Arterial; Blood Gas Tidal Volume 0.45; Carboxyhemoglobin 3.3 %THgb (0.4-20.1); HCO3 ABG 41.4 mmol/L (22-26); HGB O2 Sat 97.8 % (95-100); Ionized Calcium Level - ABG 1.1 mmol/L (1.1-1.4); Methemoglobin < 0.0 % (0.4-1.5); Oxygen Device VENT; Oxygen Saturation ABG > 100.0; PO2 FiO2 Ratio Arterial Blood 0; Potassium Level - ABG 5.4 mmol/L (3.5-5.0); Total Hemoglobin 12.8 g/dL (12-16)
--- NOTE | 2023-05-01 16:54 | P.HP_ITS ---
Providers/Chief Complaint 2 Admitting Physician: Minnie Taylor MD Primary Care Provider: Nancy Baird MD Chief Complaint: AMS History of Present Illness Cara Stevens is a 72 year old female with a past medical history of COPD, sleep apnea, recently underwent titration study as outpatient and was planned to be started on a noninvasive ventilator at home, however this has not yet happened. She presents to the hospital with chief complaints of increasing lethargy over the past few days. Today she became less responsive and was brought into the emergency room. ABG showed evidence of hypercapnic respiratory failure with CO2 greater than 100. She was placed on BiPAP ventilation, however on serial ABGs and in spite of being on BiPAP for over 2 hours she did not improve. Patient had been vomiting this morning. Due to concern for CO2 narcosis, poor GCS, and airway protection patient was eventually intubated in the emergency room. Denies any recent fever chills. She has not had any increased expectoration recently per family. No recent fever. Review of Systems 2 General: Reports: 10 or more systems reviewed and unremarkable except in HPI and below Const: Denies: fever(s), chills or body aches Eyes: Denies: change in vision, blurry vision or photophobia ENMT: Reports: hoarseness; Denies: throat pain, enlarged tonsils, odynophagia or nasal congestion Card: Denies: chest pain, palpitations, irregular heart rhythm, edema, swelling of feet/ankles, lightheadedness, pre-syncope, dyspnea on exertion or orthopnea Resp: Denies: dyspnea, productive cough, non-productive cough, wheezing, stridor, pain on inspiration, change in phlegm color, hemoptysis or chest congestion GI: Denies: abdominal pain, nausea, vomiting, hematemesis, coffee ground emesis, dysphagia, heartburn, diarrhea, constipation, GI cramping, change in stool character, hematochezia or melena : Denies: flank pain, difficulty voiding, dysuria, urinary frequency, urinary urgency, urinary hesitancy or hematuria Musc: Denies: neck pain, back pain, extremity pain, joint swelling, joint warmth or deformity Neuro: Denies: headache(s), numbness in extremities, weakness in extremities, sensory changes, difficulty walking, frequent falls, dizziness, vertigo, behavioral changes, Slurred speech present or seizure-like activity Psych: Denies: anxiety, depression, suicidal ideation or homicidal ideation Endo: Denies: polyuria, polydipsia, tired all the time, cold intolerance or hot flashes Luke/Lymph: Denies: easy bruising or easy bleeding Medications/Allergies Home Medications Medication Instructions Recorded Confirmed Last Taken Type albuterol sulfate 90 mcg/actuation 1 inh inhalation QID PRN Shortness 11/06/22 05/01/23 Unknown History aerosol inhaler Of Breath Or Wheezing allopurinol 100 mg tablet 100 mg PO DAILY 11/06/22 05/01/23 04/30/23 History alprazolam 0.5 mg tablet 0.5 mg PO TID PRN Anxiety 11/06/22 05/01/23 Unknown History clonazepam 0.5 mg tablet 1 mg PO BEDTIME 11/06/22 05/01/23 04/30/23 History gabapentin 300 mg capsule 900 mg PO TID 11/06/22 05/01/23 05/01/23 History hydrocodone 10 mg-acetaminophen 1 tab PO TID 11/06/22 05/01/23 05/01/23 History 325 mg tablet insulin regular hum U-500 conc 500 See Rx Instructions .Route .COMPLEX 11/06/22 05/01/23 04/30/23 History unit/mL subcutaneous soln (Humulin R U-500 (Concentrated) Insulin) levothyroxine 125 mcg tablet 125 mcg PO DAILY 11/06/22 05/01/23 04/30/23 History montelukast 10 mg tablet 10 mg PO DAILY PRN Shortness Of 11/06/22 05/01/23 Unknown History (Singulair) Breath Or Wheezing nitrofurantoin 100 mg PO BID 11/06/22 05/01/23 Unknown History monohydrate/macrocrystals 100 mg capsule (Macrobid) potassium citrate 10 mEq (1,080 1,080 mg PO DAILY 11/06/22 05/01/23 Unknown History mg) tablet,extended release ropinirole 2 mg tablet 2 mg PO DAILY 11/06/22 05/01/23 04/30/23 History spironolactone 25 mg tablet 25 mg PO DAILY 11/06/22 05/01/23 04/30/23 History torsemide 20 mg tablet 40 mg PO QAM 11/06/22 05/01/23 04/30/23 History ondansetron 4 mg disintegrating 4 mg PO Q6H PRN nausea and 01/19/23 05/01/23 Unknown Rx tablet vomiting #14 tabs prednisone 20 mg tablet 20 mg PO DAILY PRN Inflammation 05/01/23 05/01/23 Unknown History Allergies Allergy/AdvReac Type Severity Reaction Status Date / Time clindamycin Allergy Unknown RASH Verified 05/01/23 12:00 PFSH Acute 2 PFSH: Medical History (Updated 05/01/23 @ 16:58 by Minnie Taylor MD) Acute respiratory failure with hypoxia and hypercapnia Altered mental status Oxygen dependent End stage COPD ELI (obstructive sleep apnea) CKD (chronic kidney disease) UTI (urinary tract infection) CHF (congestive heart failure) Morbid obesity COPD (chronic obstructive pulmonary disease) 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 Vitals/I&O/Wt Last Vital Signs Temp 98.1 F 05/01/23 11:43 Pulse 76 05/01/23 15:10 Resp 16 05/01/23 15:07 BP 160/66 05/01/23 11:43 Pulse Ox 100 05/01/23 15:07 O2 Del Method Mechanical Ventilation 05/01/23 15:07 O2 Flow Rate 4 05/01/23 11:43 FiO2 45 05/01/23 16:47 05/01/23 05/01/23 05/01/23 06:59 14:59 22:59 Intake Total 3.791 / 3.791 Balance 3.791 / 3.791 Weight last 48 hrs Weight 181.437 kg Physical Exam 2 Narrative: General: No acute distress, AO x3 HEENT: PERRLA, pupils bilaterally equal and reactive, pallors not present Chest: Normal vesicular breath sounds, no added sounds, equal good air entry bilaterally CVS: S1-S2 regular, no murmurs, no tachycardia, no gallops, no rubs Abdomen: Soft, nontender, no organomegaly, bowel sounds present Neuro: No focal deficits, no facial deformity, AO x3, power 5/5 in all limbs Urinary Catheter Management: Matos: Cath Placed During This Visit: yes Urinary Catheter Date of Insertion: 05/01/23 Urinary Catheter Time of Insertion: 13:41 Data 05/01/23 12:23 05/01/23 12:23 Micro: Microbiology 05/01/23 12:26 Blood Culture - Preliminary Blood SPECIMEN COLLECTED 05/01/23 12:23 Blood Culture - Preliminary Blood SPECIMEN COLLECTED ABG Interpretation 1: 05/01/23 05/01/23 A&P Assessment and plan (1) Acute respiratory failure with hypoxia and hypercapnia: (2) COPD exacerbation: (3) CO2 narcosis: Plan Overall clinical impression consistent with that of acute on chronic hypercapnic respiratory failure related to COPD exacerbation and obstructive sleep apnea. Patient has been recommended an outpatient and noninvasive ventilator, however is yet to start this. Currently intubated due to failure of BiPAP. Admit to ICU Methylprednisolone 40 mg IV every 8 hour duoneb q6h, budesonide q12h empiric CTX Check COVID antigen, influenza antigen negative Serial ABGs DVT prophylaxis: Lovenox PUD prophylaxis Protonix Full code Family updated at bedside Attestations 2 Medical Necessity Statement*: Greater than 2 midnight admission is anticipated Coding Level of Care Code Acute Code for Chg Fwd High MDM includes number and complexity of problems actively addressed during encounter, amount and/or complexity of data reviewed/ordered and described risk of complication, morbidity or mortality of management as documented Diagnoses Acute respiratory failure with hypoxia and hypercapnia J96.01; J96.02 COPD exacerbation J44.1 CO2 narcosis R06.89
--- NOTE | 2023-05-01 17:36 | ECG_ITS ---
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 Measurements Intervals [place] Rate: 65 P: -67 [place]: 181 QRS: -52 QRSD: 101 T: 46 QT: 415 QTc: 433 Interpretive Statements ECTOPIC ATRIAL RHYTHM LOW QRS VOLTAGE IN PRECORDIAL LEADS [QRS DEFLECTION < 1.0 mV IN CHEST LEADS] LEFT ANTERIOR FASCICULAR BLOCK [QRS AXIS <= -45, QR IN I, RS IN II] POSSIBLE ANTERIOR MYOCARDIAL INFARCTION , OF INDETERMINATE AGE [30 ms Q WAVE IN V3/V4, OR R < 0.2 mV IN V4] Compared to ECG 05/01/2023 13:41:03 Low QRS voltage now present Myocardial infarct finding still present Electronically Signed On 05-02-2023 21:35:14 WAFER POLISHING WORKER by Yee Cortes M.D. [id number]
--- NOTE | 2023-05-01 18:34 | XRR_ITS ---
PROCEDURE INFORMATION: Exam: XR Chest Exam date and time: 05/01/2023 6:47 PM Age: 72 years old Clinical indication: Other vascular access device placement or adjustment; Central line, tunnelled; Patient HX: Check S/P RT central line placement TECHNIQUE: Imaging protocol: Radiologic exam of the chest. Views: 1 view. COMPARISON: CR (CHEST, ) 05/01/2023 1:05 PM FINDINGS: Tubes, catheters and devices: ET tube approximately 4.5 centimeters from the eric. Right IJ central venous catheter with the tip well positioned. Lungs: Mild bronchiectasis seen at the lung bases. No focal consolidations. Pleural spaces: No pneumothorax or pleural effusion. Heart/Mediastinum: Mild cardiomegaly. Bones/joints: No acute fracture. XR/XR chest 1V portable [id number] IMPRESSION: 1. No acute interval changes since prior exam dated 05/01/2023 1:08 p.m. 2. Interval placement of a central venous catheter and ET tube in proper position.
[2023-05-01 18:37] LABS: ABG PCO2 50.9 mmHg (35-45); ABG PH Result 7.53 (7.35-7.45); Arterial Blood Gas Hematocrit 38.6 % (37-47); Base Excess ABG 17.7 mmol/L (-2.0-2.0); Blood Gas Allen Test Pos; Blood Gas Sample Type Arterial; HCO3 ABG 42.9 mmol/L (22-26); PO2 ABG 84.8 mmHg (80.0-100.0)
[2023-05-01 18:38] LABS: Blood Gas Operator Identificat CAK; Blood Gas Sample Site Brachial, left; Blood Gas Tidal Volume 0.45; Oxygen Device VENT; PO2 FiO2 Ratio Arterial Blood 0
[2023-05-01 18:39] LABS: Troponin 5 6HR 25.01 ng/L (0-10)
[2023-05-01] MEDS: cefTRIAXone 1,000 MG in sodium chloride 0.9% (plus) 50 ML 100 MG IV (18:41)
[2023-05-01] MEDS: methylPREDNISolone sod succ 40 mg SDV IVP (18:41)
[2023-05-01 18:42] LABS: Troponin 5 6HR Delta -0.99 ng/L (0-12)
[2023-05-01] MEDS: budesonide 0.5 mg/2 mL Neb INHALATION (20:04)
[2023-05-01] MEDS: ipratropium-albuterol 3 mL Neb INHALATION (20:05)
[2023-05-01] MEDS: insulin lispro 100 unit/1 mL SUBCUT (21:30)
[2023-05-01 21:44] LABS: Glucose Point of Care 323 mg/dL (70-110)
[2023-05-02] VITALS (107 sets, daily range): BP systolic 84–160; BP diastolic 54–121; PULSE 45–157; RESP 12–28; TEMP 36.7–37.4; O2SAT 5–100; BMI 51.0
[2023-05-02 00:03] LABS: SARS Covid-2 Antigen negative (Negative)
[2023-05-02] MEDS: propofol 1,000 MG/100 ML INJ 21.77 MG IV (02:00)
[2023-05-02] MEDS: water for injection-sterile SDV 10 mL INJECTION ×3 (02:17→17:52)
[2023-05-02] MEDS: methylPREDNISolone sod succ 40 mg SDV IVP ×3 (02:17→17:52)
[2023-05-02] MEDS: ipratropium-albuterol 3 mL Neb INHALATION ×4 (02:48→19:58)
[2023-05-02] MEDS: fentaNYL 1,000 MCG/100 ML BAG 5 MCG IV (02:55)
[2023-05-02] MEDS: chlorhexidine gluconate 4% Btl 118 mL 1 APPLIC TOPICAL (03:30)
[2023-05-02 04:02] LABS: Basophils % 0.1 %; Hematocrit 39.2 % (36-47); Lymphocytes # 1.6 10^3/uL (0.8-4.8); Lymphocytes % 19.6 %; Mean Corpuscular HGB Conc 30.9 g/dL (30-55); Mean Corpuscular Hemoglobin 30.6 pg (27-33); Mean Corpuscular Volume 99.2 fl (85-98); Mean Platelet Volume 10.7 fL (7.4-10.4); Monocytes # 0.6 10^3/uL (0.2-0.9); Monocytes % 7.3 %; Neutrophils % 72.4 %; Nucleated Red Blood Cells % 0 %; Platelet Count 153 10^3/cmm (157-399); Red Blood Count 3.95 10^6/uL (3.85-5.65); Red Cell Distribution Width 13.1 % (12.1-15.1)
--- NOTE | 2023-05-02 04:30 | PC.NURSE ---
Bradycardia Patient's HR maintaining in the low 50s, intermittently dropping into the high 40s. Dr. Waekfield notified; order received to do an EKG.
[2023-05-02 04:35] LABS: Alanine Aminotransferase 14 U/L (0-33); Alkaline Phosphatase 118 U/L (35-105); Aspartate Amino Transferase 21 U/L (0-32); Blood Urea Nitrogen 21 mg/dL (8-23); Calcium 9.4 mg/dL (8.5-10.5); Carbon Dioxide 39 mmol/L (22-29); Chloride 91 mmol/L (98-107); Globulin 4.2 g/dL (1.3-4.6); Glomerular Filtration Rate 82.7 mL/min (90-130); Glucose 352 mg/dL (65-115); Osmolality Calculated 301 mOsm/kg (285-295); Sodium 137 mmol/L (136-145); Total Bilirubin 0.9 mg/dL (0.15-1.2); Total Protein 7.2 g/dL (6.6-8.7)
--- NOTE | 2023-05-02 04:45 | ECG_ITS ---
[facility] Test Date: 2023-05-02 Pat Name: Cara Stevens Department: Room: ICU11 Gender: Female Enterprise Application Developer: : 1950 Requested By: Renetta Wakefield Order Number: [id number] Liliana MD: Yee Cortes M.D. Measurements Intervals [place] Rate: 55 P: 264 [place]: 157 QRS: -47 QRSD: 104 T: 17 QT: 476 QTc: 458 Interpretive Statements ECTOPIC ATRIAL BRADYCARDIA WITH OCCASIONAL SUPRAVENTRICULAR PREMATURE COMPLEXES LEFT ANTERIOR FASCICULAR BLOCK [QRS AXIS <= -45, QR IN I, RS IN II] POSSIBLE ANTERIOR MYOCARDIAL INFARCTION , OF INDETERMINATE AGE [30 ms Q WAVE IN V3/V4, OR R < 0.2 mV IN V4] Compared to ECG 05/01/2023 17:43:53 Bradycardia, nonsinus now present Ectopic atrial rhythm no longer present Myocardial infarct finding still present Electronically Signed On 05-02-2023 21:34:35 HEAD START ASSISTANT TEACHER by Yee Cortes M.D. [id number]
[2023-05-02 04:46] LABS: ABG PCO2 50.1 mmHg (35-45); ABG PH Result 7.53 (7.35-7.45); Arterial Blood Gas Hematocrit 44.1 % (37-47); Base Excess ABG 16.3 mmol/L (-2.0-2.0); Blood Gas Allen Test Pos; Blood Gas Sample Site Radial, right; Blood Gas Sample Type Arterial; Blood Gas Tidal Volume 0.45; HCO3 ABG 41.5 mmol/L (22-26); Oxygen Device VENT; PO2 ABG 68.4 mmHg (80.0-100.0); PO2 FiO2 Ratio Arterial Blood 0
[2023-05-02] MEDS: propofol 1,000 MG/100 ML INJ 48.99 MG IV (05:15)
--- NOTE | 2023-05-02 06:16 | PC.NURSE ---
Torsemide 40 mg Torsemide PO ordered; patient NPO with no OG/NG tube. Slight crackles heard in lungs while +1 edema noted in lower extremities. Dr. Wakefield contacted and order received for 20 mg Lasix IVP once. See MAR for details.
[2023-05-02] MEDS: FUROsemide 10 mg/mL SDV 2mL 20 MG IVP (06:57)
[2023-05-02] MEDS: budesonide 0.5 mg/2 mL Neb INHALATION ×2 (08:05→19:58)
[2023-05-02] MEDS: propofol 1,000 MG/100 ML INJ 32.66 MG IV (09:07)
[2023-05-02 09:24] LABS: Glucose Point of Care 345 mg/dL (70-110)
[2023-05-02] MEDS: insulin lispro 100 unit/1 mL SUBCUT ×4 (09:34→20:24)
[2023-05-02] MEDS: enoxaparin 40 mg/0.4 mL Syringe SUBCUT (09:34)
[2023-05-02 11:52] LABS: Glucose Point of Care 374 mg/dL (70-110)
--- NOTE | 2023-05-02 12:46 | P.PN_ITS ---
Subjective 2 Subjective: ABG improving today. Patient was extubated to BiPAP this afternoon. Currently on Precedex drip to better tolerate the BiPAP. Discussed with family that she does remain at high risk of reintubation. Will monitor closely on AVAPS Medications: Reviewed: Yes Vitals/I&O/Wt Last Vital Signs Temp 98.2 F 05/02/23 09:00 Pulse 72 05/02/23 12:15 Resp 12 05/02/23 10:56 BP 141/80 05/02/23 12:15 Pulse Ox 97 05/02/23 12:15 O2 Del Method Mechanical Ventilation 05/02/23 09:00 O2 Flow Rate 4 05/01/23 11:43 FiO2 40 05/02/23 10:56 05/01/23 05/02/23 05/02/23 22:59 06:59 14:59 Intake Total 190.325 / 190.325 392.241 / 582.566 26.151 / 26.151 Output Total 850 / 850 450 / 1300 Balance -659.675 / -659.675 -57.759 / -717.434 26.151 / 26.151 Weight last 48 hrs Weight 138.981 kg Weight 139.434 kg Weight 181.437 kg Physical Exam 2 Narrative: General: No acute distress, AO x2, currently on precedex HEENT: PERRLA, pupils bilaterally equal and reactive, pallors not present Chest: Normal vesicular breath sounds, no added sounds, equal good air entry bilaterally CVS: S1-S2 regular, no murmurs, no tachycardia, no gallops, no rubs Abdomen: Soft, nontender, no organomegaly, bowel sounds present Neuro: No focal deficits,at baseline bedbound Urinary Catheter Management: Matos: Cath Placed During This Visit: yes Reason for Continuing Indwelling Catheter: Accurate Measurement of Urinary Output in Critically Ill Patients Urinary Catheter Date of Insertion: 05/01/23 Urinary Catheter Time of Insertion: 13:41 Data 05/02/23 03:14 05/02/23 03:14 Micro: Microbiology 05/01/23 12:26 Blood Culture - Preliminary Blood NEGATIVE TO DATE 05/01/23 12:23 Blood Culture - Preliminary Blood NEGATIVE TO DATE A&P Assessment and plan (1) Acute respiratory failure with hypoxia and hypercapnia: (2) COPD exacerbation: (3) CO2 narcosis: Plan Patient admitted on May 01, 2023 after presenting with increasing lethargy, CO2 narcosis, ABG with evidence of hypercapnic respiratory failure, acute on chronic. Multifactorial related to COPD exacerbation and obesity hypoventilation. Patient is supposed to start home noninvasive ventilator soon, however is yet to receive the equipment. Intubated on arrival due to severe CO2 narcosis with PCO2 of 202. Serial ABG is improving this morning. Extubated this afternoon to BiPAP. Continue Precedex infusion to better tolerate the BiPAP Continue IV steroids Continue DuoNeb and budesonide scheduled inhalation. Continue holding home dose of gabapentin to minimize her lethargy and reintubation risk. Repeat BiPAP 1 hour EXTR after extubation. Chest x-ray yesterday without any signs of consolidation. We will continue to reassess during the day. DVT prophylaxis: Lovenox PUD prophylaxis Protonix Full code Family updated at bedside This documentation was created by [employer] claim inspector software. Every effort was made to ensure accuracy of claim inspector. Any obvious errors or omissions should be clarified with the author of the document. Attestations 2 Medical Necessity Statement*: Needs continued ICU admission for close monitoring of precarious respiratory status. Critical Care Time: The high probability of a clinically significant, sudden or life threatening deterioration of the patient's [respiratory] system(s) required my full and direct attention, intervention and personal management. The critical care time is as shown. This time is in addition to time spent performing any reported procedures but includes the following: [x] Data and vital sign review and interpretation [x] Patient assessment, examination and intervention [x] Documentation [x] Medication orders and management Critical Care Time (min): 60 Coding Level of Care Code Critical Care >/= 30 minutes Diagnoses Acute respiratory failure with hypoxia and hypercapnia J96.01; J96.02 COPD exacerbation J44.1 CO2 narcosis R06.89
[2023-05-02] MEDS: dexmedeTOMIDine 0.9 % NaCL 400 MCG/100 ML PREMIX IV (14:00)
--- NOTE | 2023-05-02 14:42 | PC.NURSE ---
Waste Gtt Wasted Fentanyl, Versed, and Propofol gtt with NARAYAN HUTTON.
--- NOTE | 2023-05-02 14:44 | PC.NURSE ---
witness waste of versed and fent after extubation
[2023-05-02 15:47] LABS: Alanine Aminotransferase 13 U/L (0-33); Albumin Level 3.2 g/dL (3.5-5.2); Alkaline Phosphatase 118 U/L (35-105); Anion Gap 18.3 (5-19); Aspartate Amino Transferase 18 U/L (0-32); Blood Urea Nitrogen 24 mg/dL (8-23); Calcium 9.5 mg/dL (8.5-10.5); Carbon Dioxide 33 mmol/L (22-29); Chloride 89 mmol/L (98-107); Creatinine Clr Calc Pharmacy 82.4483; Globulin 4.3 g/dL (1.3-4.6); Glomerular Filtration Rate 61.9 mL/min (90-130); Glucose 356 mg/dL (65-115); Magnesium 1.7 mg/dL (1.7-2.3); Osmolality Calculated 302 mOsm/kg (285-295); Potassium 3.3 mmol/L (3.5-5.1); Sodium 137 mmol/L (136-145); Total Bilirubin 0.6 mg/dL (0.15-1.2); Total Protein 7.5 g/dL (6.6-8.7)
[2023-05-02 15:50] LABS: ABG PCO2 49.8 mmHg (35-45); Arterial Blood Gas Hematocrit 38.6 % (37-47); Base Excess ABG 13.7 mmol/L (-2.0-2.0); Blood Gas Allen Test Pos; Blood Gas Operator Identificat MONRO; Blood Gas Sample Site Radial, right; Blood Gas Sample Type Arterial; Blood Gas Tidal Volume 0.45; HCO3 ABG 38.9 mmol/L (22-26); Oxygen Device BIPAP; PO2 FiO2 Ratio Arterial Blood 0
[2023-05-02 17:45] LABS: Glucose Point of Care 348 mg/dL (70-110)
[2023-05-02] MEDS: cefTRIAXone 1,000 MG in sodium chloride 0.9% (plus) 50 ML 100 MG IV (17:52)
[2023-05-02] MEDS: dexmedeTOMIDine 0.9 % NaCL 400 MCG/100 ML PREMIX 17.37 MCG IV (19:19)
--- NOTE | 2023-05-02 19:54 | PC.NURSE ---
Patient's heart rate is intermittently dropping in the 50's, confirmed with charge nurse and titrated precedex from 0.5mcg to 0.4mcg
[2023-05-02 20:03] LABS: Glucose Point of Care 335 mg/dL (70-110)
--- NOTE | 2023-05-02 21:42 | PC.NURSE ---
Precedex gtt titrated to 0.3 mcg due to bradycardia, confirmed with NARAYAN Mcgee.
--- NOTE | 2023-05-02 22:26 | PC.NURSE ---
Precedex gtt titrated to 0.2 mcg for bradycardia, confirmed with Charge Nurse.
[2023-05-03] VITALS (94 sets, daily range): BP systolic 102–179; BP diastolic 61–95; PULSE 43–77; RESP 12–25; TEMP 36.1–37.1; O2SAT 88–98
--- NOTE | 2023-05-03 01:43 | PC.NURSE ---
Patient was anxious and refusing bipap and began pulling off her mask despite nurses trying to redirect her. Precedex gtt titrated up per protocol till 0.5 mcg with charge nurse supervision. Nurse gave patient a 30 min break from Bipap. SPO2 maintiained >90 on 3L NC. Oral care performed. Patient back on Bipap 35% Fio2 at 0015. Patient requested nurse call her son Pranay, Nursed called son and he appreciated the update and stated he would visit the patient tomorrow.
[2023-05-03] MEDS: dexmedeTOMIDine 0.9 % NaCL 400 MCG/100 ML PREMIX 17.37 MCG IV ×2 (01:56→08:56)
[2023-05-03] MEDS: methylPREDNISolone sod succ 40 mg SDV IVP ×2 (02:06→09:18)
[2023-05-03] MEDS: water for injection-sterile SDV 10 mL INJECTION ×2 (02:06→09:21)
[2023-05-03] MEDS: ipratropium-albuterol 3 mL Neb INHALATION ×4 (03:03→20:08)
--- NOTE | 2023-05-03 03:20 | PC.NURSE ---
Torsemide 40 mg PO due at 0600, not administered per Dr. Wakefield telephone order.
[2023-05-03 04:47] LABS: Basophils % 0.1 %; Hematocrit 40.3 % (36-47); Lymphocytes # 0.9 10^3/uL (0.8-4.8); Lymphocytes % 10.2 %; Mean Corpuscular HGB Conc 32.3 g/dL (30-55); Mean Corpuscular Hemoglobin 31.1 pg (27-33); Mean Corpuscular Volume 96.4 fl (85-98); Mean Platelet Volume 10.7 fL (7.4-10.4); Monocytes # 0.4 10^3/uL (0.2-0.9); Monocytes % 4.8 %; Neutrophils # 7.55 10^3/uL (1.8-7.7); Neutrophils % 84.5 %; Nucleated Red Blood Cells % 0 %; Platelet Count 152 10^3/cmm (157-399); Red Blood Count 4.18 10^6/uL (3.85-5.65); Red Cell Distribution Width 13.9 % (12.1-15.1); White Blood Count 8.94 10^3/uL (3.29-11.43)
[2023-05-03 07:46] LABS: Anion Gap 11.1 (5-19); Blood Urea Nitrogen 28 mg/dL (8-23); Calcium 9.3 mg/dL (8.5-10.5); Carbon Dioxide 38 mmol/L (22-29); Chloride 91 mmol/L (98-107); Glomerular Filtration Rate 82.7 mL/min (90-130); Glucose 419 mg/dL (65-115); Magnesium 1.9 mg/dL (1.7-2.3); Osmolality Calculated 305 mOsm/kg (285-295); Potassium 4.1 mmol/L (3.5-5.1); Sodium 136 mmol/L (136-145)
[2023-05-03] MEDS: budesonide 0.5 mg/2 mL Neb INHALATION ×2 (07:47→20:08)
[2023-05-03] MEDS: levothyroxine 125 mcg Tablet PO (08:54)
[2023-05-03] MEDS: allopurinol 100 mg Tablet PO (08:54)
[2023-05-03] MEDS: insulin lispro 100 unit/1 mL SUBCUT ×4 (08:54→20:21)
[2023-05-03] MEDS: pantoprazole DR 40 mg Tablet PO (08:54)
[2023-05-03 08:59] LABS: Glucose Point of Care 426 mg/dL (70-110)
[2023-05-03 12:45] LABS: Glucose Point of Care 410 mg/dL (70-110)
--- NOTE | 2023-05-03 14:16 | PM.PN ---
Subjective Subjective: Seen today. Patient awake alert oriented with son at bedside. She would like a regular diet. Currently on Precedex drip. She feels a lot better. Vitals/I&O/Wt Last Vital Signs Temp 96.9 F L 05/03/23 08:45 Pulse 59 L 05/03/23 14:00 Resp 16 05/03/23 14:00 BP 140/65 05/03/23 08:15 Pulse Ox 93 05/03/23 14:00 O2 Del Method Nasal Cannula 05/03/23 14:00 O2 Flow Rate 3 05/03/23 14:00 FiO2 35 05/03/23 07:50 05/02/23 05/03/23 05/03/23 22:59 06:59 14:59 Intake Total 167.545 / 339.311 49.160 / 388.471 220 / 220 Output Total 450 / 450 650 / 1100 Balance -282.455 / -110.689 -600.840 / -711.529 220 / 220 Weight last 48 hrs Weight 136.985 kg Weight 138.981 kg Weight 139.434 kg Weight 181.437 kg Physical Exam Narrative: General: No acute distress, AO x2, currently on precedex HEENT: PERRLA, pupils bilaterally equal and reactive, pallors not present Chest: Normal vesicular breath sounds, no added sounds, equal good air entry bilaterally CVS: S1-S2 regular, no murmurs, no tachycardia, no gallops, no rubs Abdomen: Soft, nontender, no organomegaly, bowel sounds present Neuro: No focal deficits,at baseline bedbound Urinary Catheter Management: Matos: Cath Placed During This Visit: yes Reason for Continuing Indwelling Catheter: Accurate Measurement of Urinary Output in Critically Ill Patients Urinary Catheter Date of Insertion: 05/01/23 Urinary Catheter Time of Insertion: 13:41 Data 05/03/23 04:31 05/03/23 07:16 Micro: Microbiology 05/01/23 12:26 Blood Culture - Preliminary Blood NEGATIVE TO DATE 05/01/23 12:23 Blood Culture - Preliminary Blood NEGATIVE TO DATE A&P Assessment and plan (1) Acute respiratory failure with hypoxia and hypercapnia: (2) COPD exacerbation: (3) CO2 narcosis: Plan Patient admitted on May 01, 2023 after presenting with increasing lethargy, CO2 narcosis, ABG with evidence of hypercapnic respiratory failure, acute on chronic. Multifactorial related to COPD exacerbation and obesity hypoventilation. Patient is supposed to start home noninvasive ventilator soon, however is yet to receive the equipment. Intubated on arrival due to severe CO2 narcosis with PCO2 of 202. Serial ABG is improving this morning. Extubated this afternoon to BiPAP. Continue Precedex infusion to better tolerate the BiPAP Continue IV steroids Continue DuoNeb and budesonide scheduled inhalation. Continue holding home dose of gabapentin to minimize her lethargy and reintubation risk. Continue to wean off Precedex drip. Patient's son states that she is allergic to Xanax and Ativan. However it seems that she gets very somnolent with these medications and its not a true allergy. We will start her on a regular diet as per family request and patient request. Wean off Precedex drip. Plan to transfer to floor once above achieved. DVT prophylaxis: Lovenox PUD prophylaxis Protonix Full code Family updated at bedside This documentation was created by [employer] process design chemical engineer software. Every effort was made to ensure accuracy of process design chemical engineer. Any obvious errors or omissions should be clarified with the author of the document. Attestations Medical Necessity Statement*: Continue to closely monitor in ICU on Precedex drip. Diagnoses Acute respiratory failure with hypoxia and hypercapnia J96.01; J96.02 COPD exacerbation J44.1 CO2 narcosis R06.89
--- NOTE | 2023-05-03 14:17 | PC.SOCIAL ---
Pg 2 IMM Explained to pt Pg 2 IMM. No questions voiced. Provided pt a copy. Initialed, dated, & timed a copy & placed in chart.
[2023-05-03] MEDS: dexmedeTOMIDine 0.9 % NaCL 400 MCG/100 ML PREMIX 13.9 MCG IV (15:00)
[2023-05-03] MEDS: cefTRIAXone 1,000 MG in sodium chloride 0.9% (plus) 50 ML 100 MG IV (17:27)
[2023-05-03] MEDS: methylPREDNISolone sod succ 40 mg/mL INJ IVP (17:27)
[2023-05-03 17:35] LABS: Glucose Point of Care 381 mg/dL (70-110)
[2023-05-03 19:38] LABS: Glucose Point of Care 370 mg/dL (70-110)
[2023-05-04] VITALS (96 sets, daily range): BP systolic 103–155; BP diastolic 54–119; PULSE 61–90; RESP 15–27; TEMP 36.6–37.6; O2SAT 90–98
[2023-05-04] MEDS: dexmedeTOMIDine 0.9 % NaCL 400 MCG/100 ML PREMIX 10.42 MCG IV (00:54)
[2023-05-04] MEDS: ipratropium-albuterol 3 mL Neb INHALATION ×3 (01:49→19:45)
[2023-05-04] MEDS: methylPREDNISolone sod succ 40 mg/mL INJ IVP ×3 (02:06→16:42)
[2023-05-04 03:52] LABS: ABG PCO2 51.1 mmHg (35-45); ABG PH Result 7.49 (7.35-7.45); Alveolar-Arterial Oxygen Gradi 13.8 mmHg (5-10); Arterial Blood Gas Hematocrit 36.3 % (37-47); Base Excess ABG 13.3 mmol/L (-2.0-2.0); Blood Gas Sample Site Brachial, left; Blood Gas Sample Type Arterial; HCO3 ABG 38.6 mmol/L (22-26); HGB O2 Sat 95.7 % (95-100); Ionized Calcium Level - ABG 1.2 mmol/L (1.1-1.4); Methemoglobin 0.7 % (0.4-1.5); Oxygen Device NC; Oxygen Saturation ABG 97.4; PO2 ABG 87.8 mmHg (80.0-100.0); PO2 FiO2 Ratio Arterial Blood 0; Total Hemoglobin 11.8 g/dL (12-16)
[2023-05-04] MEDS: TORSEmide 20 mg Tablet 40 MG PO (05:47)
[2023-05-04 06:19] LABS: Hematocrit 38.6 % (36-47); Lymphocytes # 0.7 10^3/uL (0.8-4.8); Lymphocytes % 8.5 %; Mean Corpuscular HGB Conc 32.9 g/dL (30-55); Mean Corpuscular Hemoglobin 30.9 pg (27-33); Mean Corpuscular Volume 93.9 fl (85-98); Mean Platelet Volume 10.5 fL (7.4-10.4); Monocytes # 0.4 10^3/uL (0.2-0.9); Monocytes % 4.5 %; Neutrophils # 6.94 10^3/uL (1.8-7.7); Neutrophils % 86.4 %; Nucleated Red Blood Cells % 0 %; Platelet Count 141 10^3/cmm (157-399); Red Blood Count 4.11 10^6/uL (3.85-5.65); Red Cell Distribution Width 13.9 % (12.1-15.1); White Blood Count 8.03 10^3/uL (3.29-11.43)
[2023-05-04 06:39] LABS: Alanine Aminotransferase 13 U/L (0-33); Albumin Level 3.3 g/dL (3.5-5.2); Alkaline Phosphatase 103 U/L (35-105); Aspartate Amino Transferase 14 U/L (0-32); Blood Urea Nitrogen 27 mg/dL (8-23); Calcium 9.2 mg/dL (8.5-10.5); Carbon Dioxide 30 mmol/L (22-29); Chloride 91 mmol/L (98-107); Globulin 4.1 g/dL (1.3-4.6); Glomerular Filtration Rate 82.7 mL/min (90-130); Glucose 369 mg/dL (65-115); Magnesium 1.9 mg/dL (1.7-2.3); Osmolality Calculated 294 mOsm/kg (285-295); Sodium 132 mmol/L (136-145); Total Bilirubin 0.6 mg/dL (0.15-1.2); Total Protein 7.4 g/dL (6.6-8.7)
[2023-05-04 07:46] LABS: Glucose Point of Care 359 mg/dL (70-110)
[2023-05-04] MEDS: budesonide 0.5 mg/2 mL Neb INHALATION ×2 (08:48→19:45)
[2023-05-04] MEDS: insulin lispro 100 unit/1 mL SUBCUT ×3 (09:11→20:16)
[2023-05-04] MEDS: allopurinol 100 mg Tablet PO (09:12)
[2023-05-04] MEDS: levothyroxine 125 mcg Tablet PO (09:12)
[2023-05-04] MEDS: HYDROcodone-acetaminophen 5-325 mg Tablet 1 TAB PO ×2 (09:12→15:33)
[2023-05-04] MEDS: pantoprazole DR 40 mg Tablet PO (09:12)
[2023-05-04 12:19] LABS: Glucose Point of Care 455 mg/dL (70-110)
--- NOTE | 2023-05-04 15:14 | P.PN_ITS ---
Subjective 2 Subjective: Seen this morning. She is resting comfortably in bed with family member at bedside. It was reported by nursing staff that she did not wear her BiPAP overnight. Patient stated that she does not like to wear it. She also says she is waiting for the machine to arrive since [facility]. She says she only likes to wear it at daytime. I did disability counselor the patient regarding the importance of BiPAP at nighttime and explained to her that she may end up getting reintubated next time and we might not able to extubate her. She is currently on a Precedex drip at 2. Vitals/I&O/Wt Last Vital Signs Temp 97.9 F 05/04/23 09:00 Pulse 68 05/04/23 12:27 Resp 16 05/04/23 12:27 BP 143/73 05/04/23 12:27 Pulse Ox 97 05/04/23 12:27 O2 Del Method Nasal Cannula 05/04/23 12:27 O2 Flow Rate 3 05/04/23 10:00 FiO2 35 05/04/23 08:00 05/04/23 05/04/23 05/04/23 06:59 14:59 22:59 Intake Total 222.027 / 1218.242 220 / 220 Output Total 1000 / 2550 2100 / 2100 Balance -777.973 / -1331.758 -1880 / -1880 Weight last 48 hrs Weight 158.757 kg Weight 136.985 kg Physical Exam 2 Narrative: General: No acute distress, AO x3, currently on precedex HEENT: PERRLA, pupils bilaterally equal and reactive, pallors not present Chest: Normal vesicular breath sounds, no added sounds, equal good air entry bilaterally CVS: S1-S2 regular, no murmurs, no tachycardia, no gallops, no rubs Abdomen: Soft, nontender, no organomegaly, bowel sounds present Neuro: No focal deficits,at baseline bedbound Urinary Catheter Management: Matos: Cath Placed During This Visit: yes Reason for Continuing Indwelling Catheter: Accurate Measurement of Urinary Output in Critically Ill Patients Urinary Catheter Date of Insertion: 05/01/23 Urinary Catheter Time of Insertion: 13:41 Data 05/04/23 05:48 05/04/23 05:48 A&P Assessment and plan (1) Acute respiratory failure with hypoxia and hypercapnia: (2) COPD exacerbation: (3) CO2 narcosis: Plan Patient admitted on May 01, 2023 after presenting with increasing lethargy, CO2 narcosis, ABG with evidence of hypercapnic respiratory failure, acute on chronic. Multifactorial related to COPD exacerbation and obesity hypoventilation. Patient is supposed to start home noninvasive ventilator soon, however is yet to receive the equipment. Intubated on arrival due to severe CO2 narcosis with PCO2 of 202. Serial ABG is improving this morning. Extubated to BiPAP within 48 hours. Continue to wean off Precedex drip today. Continue IV steroids Continue DuoNeb and budesonide scheduled inhalation. Continue holding home dose of gabapentin to minimize her lethargy and reintubation risk. Patient states that she does not like to wear the BiPAP. I do worry about her compliance once she goes home. She has a very high risk of readmission. Continue on regular diet. [facility] working with the [facility] on getting [facility] at [facility]. Plan to discharge in a.m. PT eval today. Possibly set up home health at discharge. DVT prophylaxis: Lovenox PUD prophylaxis Protonix Full code Family updated at bedside This documentation was created by [employer] fleet operations manager software. Every effort was made to ensure accuracy of fleet operations manager. Any obvious errors or omissions should be clarified with the author of the document. Attestations 2 Medical Necessity Statement*: dc in am requires icu stay as she is still on precedex Diagnoses Acute respiratory failure with hypoxia and hypercapnia J96.01; J96.02 COPD exacerbation J44.1 CO2 narcosis R06.89
[2023-05-04] MEDS: gabapentin 300 mg Capsule PO ×2 (16:50→20:17)
--- NOTE | 2023-05-04 19:38 | PC.NURSE ---
Shift SUmmary: Uneventful shif.t THis nurse took over care at approximately 2pm. SInce then she had 1225 mL of urine output. Alert to person place, time, and situation. Is agreeable to bipap at night. Has expressed concerns about getting CPAP at home in a timely manner. Nurse has spoke to solo with case management to see if she can expedite the [facility] providing [facility].
[2023-05-04 20:02] LABS: Glucose Point of Care 352 mg/dL (70-110)
[2023-05-04] MEDS: cefTRIAXone 1,000 MG in sodium chloride 0.9% (plus) 50 ML 100 MG IV (20:15)
[2023-05-05] VITALS (41 sets, daily range): BP systolic 112–189; BP diastolic 60–107; PULSE 60–97; RESP 12–20; TEMP 36.6–37.3; O2SAT 91–97
[2023-05-05] MEDS: methylPREDNISolone sod succ 40 mg/mL INJ IVP ×3 (01:36→17:10)
[2023-05-05] MEDS: ipratropium-albuterol 3 mL Neb INHALATION ×3 (02:58→20:04)
[2023-05-05] MEDS: TORSEmide 20 mg Tablet 40 MG PO (05:19)
[2023-05-05 05:35] LABS: Hematocrit 39.6 % (36-47); Lymphocytes % 11.6 %; Mean Corpuscular HGB Conc 32.3 g/dL (30-55); Mean Corpuscular Hemoglobin 30.8 pg (27-33); Mean Corpuscular Volume 95.2 fl (85-98); Mean Platelet Volume 10.5 fL (7.4-10.4); Monocytes # 0.4 10^3/uL (0.2-0.9); Monocytes % 4.4 %; Neutrophils # 6.92 10^3/uL (1.8-7.7); Neutrophils % 83.6 %; Nucleated Red Blood Cells % 0 %; Platelet Count 177 10^3/cmm (157-399); Red Blood Count 4.16 10^6/uL (3.85-5.65); Red Cell Distribution Width 14.1 % (12.1-15.1); White Blood Count 8.27 10^3/uL (3.29-11.43)
[2023-05-05 05:54] LABS: Alanine Aminotransferase 16 U/L (0-33); Albumin Level 3.2 g/dL (3.5-5.2); Alkaline Phosphatase 102 U/L (35-105); Anion Gap 10.9 (5-19); Aspartate Amino Transferase 22 U/L (0-32); Blood Urea Nitrogen 33 mg/dL (8-23); Calcium 9.3 mg/dL (8.5-10.5); Carbon Dioxide 36 mmol/L (22-29); Chloride 91 mmol/L (98-107); Globulin 3.9 g/dL (1.3-4.6); Glomerular Filtration Rate 82.7 mL/min (90-130); Glucose 285 mg/dL (65-115); Magnesium 2.1 mg/dL (1.7-2.3); Osmolality Calculated 296 mOsm/kg (285-295); Potassium 3.9 mmol/L (3.5-5.1); Sodium 134 mmol/L (136-145); Total Bilirubin 0.6 mg/dL (0.15-1.2); Total Protein 7.1 g/dL (6.6-8.7)
[2023-05-05 07:24] LABS: Glucose Point of Care 296 mg/dL (70-110)
[2023-05-05] MEDS: budesonide 0.5 mg/2 mL Neb INHALATION ×2 (07:29→20:04)
[2023-05-05] MEDS: gabapentin 300 mg Capsule PO ×3 (08:07→19:32)
[2023-05-05] MEDS: levothyroxine 125 mcg Tablet PO (08:07)
[2023-05-05] MEDS: pantoprazole DR 40 mg Tablet PO (08:07)
[2023-05-05] MEDS: allopurinol 100 mg Tablet PO (08:07)
[2023-05-05] MEDS: insulin lispro 100 unit/1 mL SUBCUT ×4 (08:08→21:52)
--- NOTE | 2023-05-05 09:56 | PC.SOCIAL ---
IMM Update Updated pt on IMM. No questions voiced. Provided pt a copy. Initialed, dated, & timed copy in chart.
[2023-05-05 11:10] LABS: Glucose Point of Care 357 mg/dL (70-110)
--- NOTE | 2023-05-05 12:04 | SUR.PREOP ---
Physical Therapy in with the patient to work on physical strenth. Patient got up to the bedside using gait belt with 2 people from PT to assist. Sat up and stood up to bedside today. See PT assessments for details. While patient was standing- bed cleaned and sheets changed at this time.
--- NOTE | 2023-05-05 12:23 | SUR.PREOP ---
Patient back to bed at her request. Sat up to eat lunch. Approximately 20 minutes upright before returning to bed- supine position. Family at bedside.
--- NOTE | 2023-05-05 13:24 | P.PN_ITS ---
Subjective 2 Subjective: seen today patient feels better and says is back to her baseline she had concerns that if she gets hypercapnic again what she will do as she doesn't have her bipap both [facility] are bedside SNF was discussed however patient not interested in going there i discharged her but after order was placed patient stated she changed her mind and is now interested in SNF Vitals/I&O/Wt Last Vital Signs Temp 98.3 F 05/05/23 08:00 Pulse 91 05/05/23 12:00 Resp 12 05/05/23 12:00 BP 134/76 05/05/23 12:00 Pulse Ox 92 05/05/23 12:00 O2 Del Method Nasal Cannula 05/05/23 12:00 O2 Flow Rate 3 05/05/23 12:00 FiO2 35 05/05/23 04:00 05/04/23 05/05/23 05/05/23 22:59 06:59 14:59 Intake Total 50 / 270 150 / 420 480 / 480 Output Total 225 / 3325 850 / 4175 1999 / 1999 Balance -175 / -3055 -700 / -3755 -1520 / -1520 Weight last 48 hrs Weight 139.253 kg Weight 158.757 kg Physical Exam 2 Narrative: General: No acute distress, AO x3, HEENT: PERRLA, pupils bilaterally equal and reactive, pallors not present Chest: Normal vesicular breath sounds, no added sounds, equal good air entry bilaterally CVS: S1-S2 regular, no murmurs, no tachycardia, no gallops, no rubs Abdomen: Soft, nontender, no organomegaly, bowel sounds present Neuro: No focal deficits,at baseline bedbound Urinary Catheter Management: Matos: Cath Placed During This Visit: yes Reason for Continuing Indwelling Catheter: Accurate Measurement of Urinary Output in Critically Ill Patients Urinary Catheter Date of Insertion: 05/01/23 Urinary Catheter Time of Insertion: 13:41 Data 05/05/23 05:10 05/05/23 05:10 A&P Assessment and plan (1) Acute respiratory failure with hypoxia and hypercapnia: (2) COPD exacerbation: (3) CO2 narcosis: Plan Patient admitted on May 01, 2023 after presenting with increasing lethargy, CO2 narcosis, ABG with evidence of hypercapnic respiratory failure, acute on chronic. Multifactorial related to COPD exacerbation and obesity hypoventilation. Patient is supposed to start home noninvasive ventilator soon, however is yet to receive the equipment. Intubated on arrival due to severe CO2 narcosis with PCO2 of 202. Serial ABG is improving this morning. Extubated to BiPAP within 48 hours. Continue to wean off Precedex drip today. Continue IV steroids Continue DuoNeb and budesonide scheduled inhalation. Continue holding home dose of gabapentin to minimize her lethargy and reintubation risk. Patient states that she does not like to wear the BiPAP. I do worry about her compliance once she goes home. She has a very high risk of readmission. Continue on regular diet. [facility] management working with the [facility] on getting [facility] at home. Plan to discharge in a.m. PT eval today. Possibly set up home health at discharge. DVT prophylaxis: Lovenox PUD prophylaxis Protonix Full code Family updated at bedside This documentation was created by [employer] gear hobber set up operator software. Every effort was made to ensure accuracy of gear hobber set up operator. Any obvious errors or omissions should be clarified with the author of the document. Disposition: Patient is medically ready for discharge however would like SNF placement Attestations 2 Medical Necessity Statement*: Awaiting placement Diagnoses Acute respiratory failure with hypoxia and hypercapnia J96.01; J96.02 COPD exacerbation J44.1 CO2 narcosis R06.89
[2023-05-05 16:28] LABS: Glucose Point of Care 394 mg/dL (70-110)
[2023-05-05] MEDS: cefTRIAXone 1,000 MG in sodium chloride 0.9% (plus) 50 ML 100 MG IV (16:55)
[2023-05-05] MEDS: HYDROcodone-acetaminophen 10-325 mg Tablet 1 TAB PO (21:25)
[2023-05-05] MEDS: CLONazepam 0.5 mg Tablet PO (21:25)
[2023-05-05 21:44] LABS: Glucose Point of Care 420 mg/dL (70-110)
[2023-05-06] VITALS (13 sets, daily range): BP systolic 119–175; BP diastolic 68–96; PULSE 66–113; RESP 14–18; TEMP 36.6–36.8; O2SAT 91–99
--- NOTE | 2023-05-06 00:52 | PC.NURSE ---
pt fsbg pt has had several high fsbg. this nurse noticed regular syrup, honey and a pudding cup on her table. this nurse tried to provide education on her sugars, pt stated ' my sugar is only high because of the solumedrol, I don't eat sugar free things'
--- NOTE | 2023-05-06 02:55 | PC.NURSE ---
fixture maker pt monitor placed. monitor not working within the hour. pt batteries replaced, reading now.
[2023-05-06] MEDS: ipratropium-albuterol 3 mL Neb INHALATION ×3 (03:04→19:56)
[2023-05-06 06:09] LABS: Anion Gap 10.9 (5-19); Blood Urea Nitrogen 40 mg/dL (8-23); Calcium 9.4 mg/dL (8.5-10.5); Carbon Dioxide 37 mmol/L (22-29); Chloride 90 mmol/L (98-107); Glomerular Filtration Rate 70.9 mL/min (90-130); Glucose 339 mg/dL (65-115); Osmolality Calculated 301 mOsm/kg (285-295); Potassium 3.9 mmol/L (3.5-5.1); Sodium 134 mmol/L (136-145)
[2023-05-06] MEDS: methylPREDNISolone sod succ 40 mg/mL INJ IVP (06:10)
[2023-05-06] MEDS: TORSEmide 20 mg Tablet 40 MG PO (06:10)
[2023-05-06 06:38] LABS: Glucose Point of Care 385 mg/dL (70-110)
[2023-05-06] MEDS: pantoprazole DR 40 mg Tablet PO (08:11)
[2023-05-06] MEDS: allopurinol 100 mg Tablet PO (08:11)
[2023-05-06] MEDS: levothyroxine 125 mcg Tablet PO (08:11)
[2023-05-06] MEDS: insulin lispro 100 unit/1 mL SUBCUT ×4 (08:11→21:59)
[2023-05-06] MEDS: gabapentin 300 mg Capsule PO ×3 (08:12→21:58)
[2023-05-06] MEDS: HYDROcodone-acetaminophen 10-325 mg Tablet 1 TAB PO ×2 (08:12→21:58)
[2023-05-06 11:41] LABS: Glucose Point of Care 431 mg/dL (70-110)
[2023-05-06] MEDS: lanolin oint 7 gm 1 APPLIC TOPICAL (12:35)
--- NOTE | 2023-05-06 12:37 | PM.PN ---
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 and will be able to go home by tomorrow her avaps equipment arriving today Vitals/I&O/Wt Last Vital Signs Temp 97.9 F 05/06/23 11:36 Pulse 72 05/06/23 11:36 Resp 16 05/06/23 11:36 BP 119/68 05/06/23 11:36 Pulse Ox 99 05/06/23 11:36 O2 Del Method Nasal Cannula 05/06/23 09:25 O2 Flow Rate 3 05/06/23 11:36 FiO2 35 05/06/23 00:22 05/05/23 05/06/23 05/06/23 22:59 06:59 14:59 Intake Total 530 / 1010 240 / 240 Output Total 1000 / 3000 500 / 3500 Balance -470 / -1990 -500 / -2490 240 / 240 Weight last 48 hrs Weight 136.333 kg Weight 139.253 kg Physical Exam Narrative: General: No acute distress, AO x3, HEENT: PERRLA, pupils bilaterally equal and reactive, pallors not present Chest: Normal vesicular breath sounds, no added sounds, equal good air entry bilaterally CVS: S1-S2 regular, no murmurs, no tachycardia, no gallops, no rubs Abdomen: Soft, nontender, no organomegaly, bowel sounds present Neuro: No focal deficits, Urinary Catheter Management: Matos: Cath Placed During This Visit: yes Reason for Continuing Indwelling Catheter: Acute Urinary Retention or Obstruction Urinary Catheter Date of Insertion: 05/01/23 Urinary Catheter Time of Insertion: 13:41 Data 05/05/23 05:10 05/06/23 05:33 Micro: Microbiology 05/01/23 12:26 Blood Culture - Final Blood NO GROWTH AFTER 5 DAYS 05/01/23 12:23 Blood Culture - Final Blood NO GROWTH AFTER 5 DAYS A&P Assessment and plan (1) Acute respiratory failure with hypoxia and hypercapnia: (2) COPD exacerbation: (3) CO2 narcosis: Plan Patient admitted on May 01, 2023 after presenting with increasing lethargy, CO2 narcosis, ABG with evidence of hypercapnic respiratory failure, acute on chronic. Multifactorial related to COPD exacerbation and obesity hypoventilation. Patient is supposed to start home noninvasive ventilator soon, however is yet to receive the equipment. Intubated on arrival due to severe CO2 narcosis with PCO2 of 202. Serial ABG is improving this morning. Extubated to BiPAP within 48 hours. precedex drip is off Continue IV steroids Continue DuoNeb and budesonide scheduled inhalation. Continue holding home dose of gabapentin to minimize her lethargy and reintubation risk. Patient states that she does not like to wear the BiPAP. I do worry about her compliance once she goes home. She has a very high risk of readmission. Continue on regular diet. [facility] with [facility] on [facility] at [facility]. Plan to discharge in a.m. Possibly set up home health at discharge. DVT prophylaxis: Lovenox PUD prophylaxis Protonix Full code Family updated at bedside This documentation was created by [employer] distribution associate software. Every effort was made to ensure accuracy of distribution associate. Any obvious errors or omissions should be clarified with the author of the document. Disposition: Patient is medically ready for discharge, avaps to be delivered to home today sit to stand also being arranged will be dc in AM Attestations Medical Necessity Statement*: DC in am Diagnoses Acute respiratory failure with hypoxia and hypercapnia J96.01; J96.02 COPD exacerbation J44.1 CO2 narcosis R06.89
[2023-05-06] MEDS: HYDROcodone-acetaminophen 5-325 mg Tablet 1 TAB PO (15:46)
[2023-05-06 17:18] LABS: Glucose Point of Care 443 mg/dL (70-110)
[2023-05-06] MEDS: cefTRIAXone 1,000 MG in sodium chloride 0.9% (plus) 50 ML 100 MG IV (17:31)
[2023-05-06 18:11] LABS: SARS Covid-2 Antigen positive (Negative)
[2023-05-06] MEDS: budesonide 0.5 mg/2 mL Neb INHALATION (19:56)
[2023-05-06 20:37] LABS: Glucose Point of Care 405 mg/dL (70-110)
[2023-05-06] MEDS: insulin glargine 100 units/1 mL 20 UNIT SUBCUT (21:58)
[2023-05-06] MEDS: CLONazepam 0.5 mg Tablet PO (21:58)
[2023-05-07] VITALS (9 sets, daily range): BP systolic 134–142; BP diastolic 83–84; PULSE 72–83; RESP 15–20; TEMP 36.7–36.8; O2SAT 92–98; BMI 49.9
[2023-05-07] MEDS: ipratropium-albuterol 3 mL Neb INHALATION ×2 (01:35→07:50)
[2023-05-07] MEDS: TORSEmide 20 mg Tablet 40 MG PO (05:10)
[2023-05-07 06:07] LABS: Anion Gap 10.3 (5-19); Blood Urea Nitrogen 41 mg/dL (8-23); Calcium 9.1 mg/dL (8.5-10.5); Carbon Dioxide 37 mmol/L (22-29); Chloride 93 mmol/L (98-107); Glomerular Filtration Rate 61.9 mL/min (90-130); Glucose 348 mg/dL (65-115); Osmolality Calculated 308 mOsm/kg (285-295); Potassium 3.3 mmol/L (3.5-5.1); Sodium 137 mmol/L (136-145)
[2023-05-07 06:28] LABS: Glucose Point of Care 334 mg/dL (70-110)
[2023-05-07 06:51] LABS: Bacillus cereus group Not Detected (NOT DETECT); Bacillus subtillis group Not Detected (NOT DETECT); Corynebacterium Not Detected (NOT DETECT); Cutibacterium acnes (P.acnes) Not Detected (NOT DETECT); Enterococcus Not Detected (NOT DETECT); Enterococcus faecalis Not Detected (NOT DETECT); Enterococcus faecium Not Detected (NOT DETECT); Lactobacillus species Not Detected (NOT DETECT); Listeria Not Detected (NOT DETECT); Listeria monocytogenes Not Detected (NOT DETECT); Micrococcus Not Detected (NOT DETECT); Pan Candida Not Detected (NOT DETECT); Pan Gram-Negative Not Detected (NOT DETECT); Staphylococcus epidermidis Not Detected (NOT DETECT); Staphylococcus lugdunensis Not Detected (NOT DETECT); Staphylococcus species Not Detected (NOT DETECT); Streptococcus agalactiae Not Detected (NOT DETECT); Streptococcus anginosus group Not Detected (NOT DETECT); Streptococcus pneumoniae Not Detected (NOT DETECT); Streptococcus pyogenes Not Detected (NOT DETECT); Streptococcus species Not Detected (NOT DETECT)
[2023-05-07] MEDS: methylPREDNISolone sod succ 40 mg/mL INJ IVP (07:05)
[2023-05-07] MEDS: budesonide 0.5 mg/2 mL Neb INHALATION (07:50)
[2023-05-07] MEDS: insulin lispro 100 unit/1 mL SUBCUT (08:54)
[2023-05-07] MEDS: allopurinol 100 mg Tablet PO (08:55)
[2023-05-07] MEDS: pantoprazole DR 40 mg Tablet PO (08:55)
[2023-05-07] MEDS: gabapentin 300 mg Capsule PO (08:55)
[2023-05-07] MEDS: levothyroxine 125 mcg Tablet PO (08:55)
--- NOTE | 2023-05-07 10:39 | PM.DCS ---
Discharge Providers Date of Admission: 05/01/23 15:41 Date of Discharge: May 07, 2023 Attending Provider at Admission: Minnie Taylor MD Attending Provider at Discharge: Kerry Dunne MD Primary Care Provider: Nancy Baird MD Diagnoses at Discharge Discharge Diagnosis (1) Acute respiratory failure with hypoxia and hypercapnia: Status: Resolved (2) COPD exacerbation: Status: Resolved (3) CO2 narcosis: Status: Resolved Reason for Visit Reason for Visit: AMS Hospital Course Hospital Course Patient admitted May 01 for increasing lethargy CO2 narcosis with hypercapnic respiratory failure related to COPD exacerbation and obesity hypoventilation. She is supposed to be starting noninvasive ventilator at home however has yet to receive the equipment. Patient was intubated on arrival and extubated to BiPAP within 48 hours. She required Precedex drip for almost 48 hours after extubation. Her gabapentin dose was cut down to 300 TID. She has a very high risk for readmission. Patient was eventually sent home once her BiPAP was set up at home. She worked with physical therapy during the hospital stay as well and will be set up with home health on discharge. Patient's grandchildren were also at bedside and patient was heavily counseled on compliance to her BiPAP at home. Discharged home in stable condition. Physical Exam Narrative: General: No acute distress, AO x3, says shes a fighter and she can do this!!! HEENT: PERRLA, pupils bilaterally equal and reactive, pallors not present Chest: Normal vesicular breath sounds, no added sounds, equal good air entry bilaterally CVS: S1-S2 regular, no murmurs, no tachycardia, no gallops, no rubs Abdomen: Soft, nontender, no organomegaly, bowel sounds present Neuro: No focal deficits, Urinary Catheter Management: Matos: Cath Placed During This Visit: yes Reason for Continuing Indwelling Catheter: Acute Urinary Retention or Obstruction Urinary Catheter Date of Insertion: 05/01/23 Urinary Catheter Time of Insertion: 13:41 Discharge Data Studies Completed and Pending Completed Studies During Hospitalization Category Date Time Status CXRP [XR chest 1V portable [id number]] Routine Exams 05/01/23 18:34 Completed XR chest 1V portable [id number] Stat Exams 05/01/23 11:35 Completed Pending at discharge Category Date Time Status Blood Culture Stat Lab 05/01/23 12:26 Results Blood Culture Stat Lab 05/07/23 10:05 Results Sputum Culture and Gram Stain Stat Lab 05/01/23 14:48 Uncollected Radiology Impressions Chest X-Ray 05/01/23 18:34 IMPRESSION: 1. No acute interval changes since prior exam dated 05/01/2023 1:08 p.m. 2. Interval placement of a central venous catheter and ET tube in proper position. Laboratory Results WBC 8.27 10^3/uL (3.29-11.43) 05/05/23 05:10 RBC 4.16 10^6/uL (3.85-5.65) 05/05/23 05:10 Hgb 12.80 g/dL (11.27-16.99) 05/05/23 05:10 Hct 39.6 % (36-47) 05/05/23 05:10 MCV 95.2 fl (85-98) 05/05/23 05:10 MCH 30.8 pg (27-33) 05/05/23 05:10 MCHC 32.3 g/dL (30-55) 05/05/23 05:10 RDW 14.1 % (12.1-15.1) 05/05/23 05:10 Plt Count 177 10^3/cmm (157-399) 05/05/23 05:10 MPV 10.5 fL (7.4-10.4) H 05/05/23 05:10 Neut % (Auto) 83.6 % 05/05/23 05:10 Lymph % (Auto) 11.6 % 05/05/23 05:10 [place] % (Auto) 4.4 % 05/05/23 05:10 Eos % (Auto) 0.0 % 05/05/23 05:10 Baso % (Auto) 0.0 % 05/05/23 05:10 Neut # (Auto) 6.92 10^3/uL (1.8-7.7) 05/05/23 05:10 Lymph # (Auto) 1.0 10^3/uL (0.8-4.8) 05/05/23 05:10 [place] # (Auto) 0.4 10^3/uL (0.2-0.9) 05/05/23 05:10 Eos # (Auto) 0.0 10^3/uL (0.0-0.8) 05/05/23 05:10 Baso # (Auto) 0.0 10^3/uL (0.0-0.1) 05/05/23 05:10 Nucleated RBC % (auto) 0 % 05/05/23 05:10 Nucleated RBCs # 0.0 /100WBC 05/05/23 05:10 Specimen Type Arterial 05/04/23 03:40 Sample Site Brachial, left 05/04/23 03:40 ABG pH 7.49 (7.35-7.45) H 05/04/23 03:40 ABG pCO2 51.1 mmHg (35-45) H 05/04/23 03:40 ABG pO2 87.8 mmHg (80.0-100.0) 05/04/23 03:40 ABG PO2/FiO2 Ratio 0 05/04/23 03:40 ABG HCO3 38.6 mmol/L (22-26) H 05/04/23 03:40 ABG O2 Saturation 97.4 05/04/23 03:40 ABG Base Excess 13.3 mmol/L (-2.0-2.0) H 05/04/23 03:40 Joaquín Test N/a 05/04/23 03:40 A-a O2 Gradient 13.8 mmHg (5-10) H 05/04/23 03:40 Hematocrit 36.3 % (37-47) L 05/04/23 03:40 Hgb O2 Saturation 95.7 % (95-100) 05/04/23 03:40 Carboxyhemoglobin 1.0 %THgb (0.4-20.1) 05/04/23 03:40 Methemoglobin 0.7 % (0.4-1.5) 05/04/23 03:40 Total Hemoglobin 11.8 g/dL (12-16) L 05/04/23 03:40 Sodium 135.0 mmol/L (131-143) 05/04/23 03:40 Potassium 4.0 mmol/L (3.5-5.0) 05/04/23 03:40 Glucose 338.0 mg/dL (70-115) H 05/04/23 03:40 Ionized Calcium 1.2 mmol/L (1.1-1.4) 05/04/23 03:40 O2 Delivery Device Nc 05/04/23 03:40 O2 Liters/Min 4.0 % 05/04/23 03:40 FiO2 36.0 % 05/04/23 03:40 Tidal Volume 0.45 05/02/23 15:35 PEEP 8.0 cmH20 05/02/23 15:35 Slusher Operator ID Emani 05/04/23 03:40 Sodium 137 mmol/L (136-145) 05/07/23 05:43 Potassium 3.3 mmol/L (3.5-5.1) L 05/07/23 05:43 Chloride 93 mmol/L (98-107) L 05/07/23 05:43 Carbon Dioxide 37 mmol/L (22-29) H 05/07/23 05:43 Anion Gap 10.3 (5-19) 05/07/23 05:43 BUN 41 mg/dL (8-23) H 05/07/23 05:43 Creatinine 0.9 mg/dL (0.5-0.9) 05/07/23 05:43 GFR Calculation 61.9 mL/min (90-130) L 05/07/23 05:43 Glucose 348 mg/dL (65-115) H 05/07/23 05:43 POC Glucose 334 mg/dL (70-110) H 05/07/23 06:21 Calculated Osmolality 308 mOsm/kg (285-295) H 05/07/23 05:43 Calcium 9.1 mg/dL (8.5-10.5) 05/07/23 05:43 Magnesium 2.1 mg/dL (1.7-2.3) 05/05/23 05:10 Total Bilirubin 0.6 mg/dL (0.15-1.2) 05/05/23 05:10 AST 22 U/L (0-32) 05/05/23 05:10 ALT 16 U/L (0-33) 05/05/23 05:10 Alkaline Phosphatase 102 U/L (35-105) 05/05/23 05:10 Creatine Kinase 24 U/L (26-192) L 05/01/23 12:23 Troponin T Baseline 26 ng/L (0-10) H 05/01/23 12:23 Troponin T 120 Minute 24.99 ng/L (0-10) H 05/01/23 15:23 Delta Troponin T -1.01 ABS# (0-10) L 05/01/23 15:23 Troponin T Hi Sens 6Hr 25.01 ng/L (0-10) H 05/01/23 18:14 Troponin T Hi Sens 6Hr Delta -0.99 ng/L (0-12) L 05/01/23 18:14 NT-Pro-B Natriuret Pep 259 pg/mL (0-125) H 05/01/23 12:23 Total Protein 7.1 g/dL (6.6-8.7) 05/05/23 05:10 Albumin 3.2 g/dL (3.5-5.2) L 05/05/23 05:10 Globulin 3.9 g/dL (1.3-4.6) 05/05/23 05:10 Procalcitonin 0.08 ng/mL (0-0.5) 05/01/23 12: Urine Color Yellow (Yellow) 05/01/23 13:30 Urine Appearance Clear (CLEAR) 05/01/23 13:30 Urine pH 5 (5-7) 05/01/23 13:30 Ur Specific [place] 1.025 (1.005-1.030) 05/01/23 13:30 Urine Protein Neg (Negative) 05/01/23 13:30 Urine Glucose (UA) 2+ (Normal) H 05/01/23 13:30 Urine Ketones 1+ (Negative) H 05/01/23 13:30 Urine Blood Neg (Negative) 05/01/23 13:30 Urine Nitrate Negative (Negative) 05/01/23 13:30 Urine Bilirubin Neg (Negative) 05/01/23 13:30 Urine Urobilinogen Norm mg/dL (Negative) 05/01/23 13:30 Ur Leukocyte Esterase Negative (Negative) 05/01/23 13:30 Influenza Type A Ag negative (Negative) 05/01/23 12:17 Influenza Type B Ag negative (Negative) 05/01/23 12:17 SARS-CoV-2 Ag (Rapid) positive (Negative) H 05/06/23 17:15 Vitals Last Vital Signs Temp 98.1 F 05/07/23 08:52 Pulse 78 05/07/23 08:52 Resp 18 05/07/23 08:52 BP 142/83 05/07/23 08:52 Pulse Ox 96 05/07/23 08:52 O2 Del Method Nasal Cannula 05/07/23 08:52 O2 Flow Rate 3 05/07/23 07:50 FiO2 35 05/06/23 00:22 Discharge Plan Discharge Patient Disposition: Home Health Service Condition: Stable Prescriptions: New gabapentin 300 mg Capsule 300 mg PO TID Qty: 30 0RF Continued clonazepam 0.5 mg tablet 1 mg PO BEDTIME torsemide 20 mg tablet 40 mg PO QAM allopurinol 100 mg Tablet 100 mg PO DAILY hydrocodone-acetaminophen 10-325 mg tablet 1 tab PO TID spironolactone 25 mg tablet 25 mg PO DAILY Humulin R U-500 (Conc) Insulin 500 unit/mL Solution See Rx Instructions .ROUTE .COMPLEX Rx Instructions: 70-90 units subcutaneously per sliding scale potassium citrate 10 mEq (1,080 mg) Tablet Extended Release 1,080 mg PO DAILY ropinirole 2 mg tablet 2 mg PO DAILY levothyroxine 125 mcg Tablet 125 mcg PO DAILY montelukast [Singulair] 10 mg Tablet 10 mg PO DAILY PRN (Reason: Shortness Of Breath Or Wheezing) albuterol sulfate 90 mcg/actuation Hfa Aerosol Inhaler 1 inh INHALATION QID PRN (Reason: Shortness Of Breath Or Wheezing) Discontinued gabapentin 300 mg capsule 900 mg PO TID nitrofurantoin monohyd/m-cryst [Macrobid] 100 mg Capsule 100 mg PO BID Rx Instructions: must administer with a meal/food prednisone 20 mg tablet 20 mg PO DAILY PRN (Reason: Inflammation) No Action ondansetron 4 mg tablet,disintegrating 4 mg PO Q6H PRN (Reason: nausea and vomiting) Qty: 14 2RF tamsulosin 0.4 mg capsule 0.4 mg PO DAILY Qty: 10 2RF guaifenesin 600 mg tablet extended release 12hr 600 mg PO Q12H PRN (Reason: congestion/cough) Qty: 60 5RF nitrofurantoin monohyd/m-cryst [Macrobid] 100 mg capsule 100 mg PO BID Qty: 60 5RF Rx Instructions: must administer with a meal/food Discharge Orders: Discharge Order (Routine); Ordered 05/07/23 Ordered By: Kerry Dunne Other Ambulatory Orders: DME: Miscellaneous (Order) Location: None Selected Ordered By: Kerry Dunne DME: Non-Invasive Vent (Order) Location: None Selected Ordered By: Kerry Dunne Referrals: [facility] ([facility]) [Outside] Manoj Hall MD [Physician] - 05/13/23 10:00 am (Please arrive 15 minutes prior to appointment to complete new patient paperwork. ) Discharge Diet: Cardiac and Diabetic Discharge Activity: Resume usual activity Patient Instructions: Gabapentin (By mouth), Levofloxacin (By mouth), Using Oxygen at Home (GEN), COPD (Chronic Obstructive Pulmonary Disease) (GEN), Opioid Safety Discharge Attestations Time Spent in Discharge Care*: greater than 30 min Quality Metrics Clinical Quality Measures [ No reported AMI, CVA or VTE this stay] Coding Level of Care Code Acute Code for Chg Fwd Diagnoses Acute respiratory failure with hypoxia and hypercapnia J96.01; J96.02 COPD exacerbation J44.1 CO2 narcosis R06.89
[2023-05-07 11:43] LABS: Glucose Point of Care 494 mg/dL (70-110)
--- NOTE | 2023-05-07 12:32 | PC.SOCIAL ---
IMM Update pg 2 of IMM updated and reviewed w/ patient. Copy provided and copy dated, initialed and placed in chart.
[2023-05-08 07:09] LABS: Bacillus cereus group Not Detected (NOT DETECT); Bacillus subtillis group Not Detected (NOT DETECT); Corynebacterium Not Detected (NOT DETECT); Cutibacterium acnes (P.acnes) Not Detected (NOT DETECT); Enterococcus Not Detected (NOT DETECT); Enterococcus faecalis Not Detected (NOT DETECT); Enterococcus faecium Not Detected (NOT DETECT); Lactobacillus species Not Detected (NOT DETECT); Listeria Not Detected (NOT DETECT); Listeria monocytogenes Not Detected (NOT DETECT); Micrococcus Not Detected (NOT DETECT); Pan Candida Not Detected (NOT DETECT); Pan Gram-Negative Not Detected (NOT DETECT); Staphylococcus epidermidis Detected (NOT DETECT); Staphylococcus lugdunensis Not Detected (NOT DETECT); Staphylococcus species Detected (NOT DETECT); Streptococcus agalactiae Not Detected (NOT DETECT); Streptococcus anginosus group Not Detected (NOT DETECT); Streptococcus pneumoniae Not Detected (NOT DETECT); Streptococcus pyogenes Not Detected (NOT DETECT); Streptococcus species Not Detected (NOT DETECT); mecA Detected (NOT DETECT); mecC Not Detected (NOT DETECT)
== END 2023-05-07 12:35 | disposition home health service (06) | DRG 208 ==
LOC: ER 17:21 → ICU 17:55 → MEDSURG 05-05 15:23
PROVIDERS: Internal Medicine; Admitting Provider Student in an Organized Health Care Education/Training Program; Emergency Provider Family Medicine; PCP Internal Medicine; Visit Provider Internal Medicine
DX: J96.22 Acute and chronic respiratory failure with hypercapnia (principal); J44.1 Chronic obstructive pulmonary disease with (acute) exacerbation; E66.2 Morbid (severe) obesity with alveolar hypoventilation; Z68.43 Body mass index [BMI] 50.0-59.9, adult; J96.21 Acute and chronic respiratory failure with hypoxia; Z99.81 Dependence on supplemental oxygen; Z87.440 Personal history of urinary (tract) infections; Z11.52 Encounter for screening for COVID-19
CPT/HCPCS: 36415; 36416; 36592; 36600; 51702; 71045; 80048; 80051; 80053; 81003; 82330; 82550; 82803; 82805; 82962; 83735; 83880; 84145; 84484; 85025; 87040; 87077; 87186; 87205; 87426; 87804; 93005; 94002; 94003; 94640; 94660; 94799; 96365; 96366; 96367; 96372; 96375; 96376; 97110; 97161; 97530; 99291; A4570; C1751; J0330; J0696; J1100; J1650; J1815; J1940; J2250; J2270; J2405; J2704; J2920; J3010; J3490; J7626

== ENCOUNTER → 2023-07-29 11:03 | Outpatient (BNVA) | payer MEDICARE, OTHER, SELFPAY | PROVIDERS: PCP Internal Medicine; Visit Provider Podiatrist Foot & Ankle Surgery | DX: I73.9 Peripheral vascular disease, unspecified (principal); B35.1 Tinea unguium; N18.9 Chronic kidney disease, unspecified; G62.89 Other specified polyneuropathies; E11.42 Type 2 diabetes mellitus with diabetic polyneuropathy; Z79.4 Long term (current) use of insulin | CPT/HCPCS: 11721 ==

== ENCOUNTER 2023-08-27 10:20 | Outpatient (CLI) | payer MEDICARE, OTHER, SELFPAY ==
[2023-08-27 11:12] LABS: Basophils # 0.1 10^3/uL (0.0-0.1); Basophils % 0.7 %; Eosinophils # 0.2 10^3/uL (0.0-0.8); Eosinophils % 2.5 %; Hematocrit 42.5 % (36-47); Lymphocytes # 2.1 10^3/uL (0.8-4.8); Lymphocytes % 31.1 %; Mean Corpuscular Hemoglobin 30.5 pg (27-33); Mean Corpuscular Volume 95.3 fl (85-98); Mean Platelet Volume 10.7 fL (7.4-10.4); Monocytes # 0.5 10^3/uL (0.2-0.9); Monocytes % 7.2 %; Neutrophils # 3.88 10^3/uL (1.8-7.7); Neutrophils % 58.1 %; Nucleated Red Blood Cells % 0 %; Platelet Count 180 10^3/cmm (157-399); Red Blood Count 4.46 10^6/uL (3.85-5.65); Red Cell Distribution Width 14.3 % (12.1-15.1); White Blood Count 6.69 10^3/uL (3.29-11.43)
[2023-08-27 11:38] LABS: Estmated Average Glucose 214; Hemoglobin A1C 9.1 % (4.0-6.0)
[2023-08-27 13:11] LABS: Alanine Aminotransferase 22 U/L (0-33); Albumin Level 3.6 g/dL (3.5-5.2); Alkaline Phosphatase 144 U/L (35-105); Aspartate Amino Transferase 40 U/L (0-32); Blood Urea Nitrogen 17 mg/dL (8-23); Calcium 9.5 mg/dL (8.5-10.5); Carbon Dioxide 31 mmol/L (22-29); Chol HDL Ratio 3.98 mg/dL (0.0-4.40); Cholesterol 179 mg/dL (0-200); Free T4 Free Thyroxine 1.16 ng/dL (0.82-1.77); Globulin 4.3 g/dL (1.3-4.6); Glomerular Filtration Rate 82.7 mL/min (90-130); Glucose 310 mg/dL (65-115); HDL Cholesterol 45 mg/dL (60-100); LDL Cholesterol Calculated 102 mg/dL (50-129); LDL HDL Ratio 2.27 RATIO (0.00-3.22); Thyroid Stimulating Hormone 3.98 uIU/mL (0.27-4.20); Total Bilirubin 0.6 mg/dL (0.15-1.2); Total Protein 7.9 g/dL (6.6-8.7); Triglycerides 160 mg/dL (0-150)
[2023-08-27 13:12] LABS: Potassium 4.4 mmol/L (3.5-5.1)
[2023-08-27 14:35] LABS: 25 Hydroxy Vitamin D 23 ng/mL (30-100); Vitamin B12 507 pg/mL (232-1245)
[2023-08-27 14:36] LABS: Anion Gap 16.4 (5-19); Chloride 94 mmol/L (98-107); Osmolality Calculated 297 mOsm/kg (285-295); Sodium 137 mmol/L (136-145)
== END 2023-08-27 10:21 | disposition home or self-care (01) ==
LOC: LAB 10:30
PROVIDERS: PCP Internal Medicine; Visit Provider Internal Medicine
DX: E11.8 Type 2 diabetes mellitus with unspecified complications (principal); E55.9 Vitamin D deficiency, unspecified; E03.9 Hypothyroidism, unspecified; E78.2 Mixed hyperlipidemia; Z79.899 Other long term (current) drug therapy
CPT/HCPCS: 36415; 80053; 80061; 82306; 82607; 83036; 84439; 84443; 85025

== ENCOUNTER → 2023-08-30 10:24 | Outpatient (BNVA) | payer MEDICARE, OTHER, SELFPAY | PROVIDERS: PCP Internal Medicine; Visit Provider Internal Medicine | DX: E11.42 Type 2 diabetes mellitus with diabetic polyneuropathy (principal); Z79.4 Long term (current) use of insulin; E11.22 Type 2 diabetes mellitus with diabetic chronic kidney disease; N18.2 Chronic kidney disease, stage 2 (mild) | CPT/HCPCS: 82043 ==

== ENCOUNTER → 2023-10-01 10:37 | Outpatient (BNVA) | payer MEDICARE, OTHER, SELFPAY | PROVIDERS: PCP Internal Medicine; Visit Provider Podiatrist Foot & Ankle Surgery | DX: B35.1 Tinea unguium (principal); N18.9 Chronic kidney disease, unspecified; I73.9 Peripheral vascular disease, unspecified; G62.89 Other specified polyneuropathies; E11.42 Type 2 diabetes mellitus with diabetic polyneuropathy; Z79.4 Long term (current) use of insulin | CPT/HCPCS: 11721 ==

== ENCOUNTER → 2023-12-17 10:35 | Outpatient (BNVA) | payer MEDICARE, OTHER, SELFPAY | PROVIDERS: PCP Family Medicine Adult Medicine; Visit Provider Podiatrist Foot & Ankle Surgery | DX: B35.1 Tinea unguium (principal); N18.9 Chronic kidney disease, unspecified; I73.9 Peripheral vascular disease, unspecified; G62.89 Other specified polyneuropathies; E11.42 Type 2 diabetes mellitus with diabetic polyneuropathy; Z79.4 Long term (current) use of insulin | CPT/HCPCS: 11721 ==

== ENCOUNTER 2024-02-20 19:01 | Emergency (ER) | payer MEDICARE, OTHER, SELFPAY ==
[2024-02-20 19:15] VITALS: BP 150/83; PULSE 103; RESP 18; TEMP 36.9; O2SAT 88; BMI 60.2
--- NOTE | 2024-02-20 21:21 | CTR_ITS ---
PROCEDURE INFORMATION: Exam: CT Abdomen And Pelvis Without Contrast Exam date and time: 02/20/2024 9:36 PM Age: 73 years old Clinical indication: Abdominal pain; Right; Prior surgery; Surgery date: 6+ months; Surgery type: Hysterectomy; Patient HX: C/O RT flank pain. History of ckd and nephrolithiasis. ; Additional info: R flank pain TECHNIQUE: Imaging protocol: Computed tomography of the abdomen and pelvis without contrast. Radiation optimization: All CT scans at this facility use at least one of these dose optimization techniques: automated exposure control; mA and/or kV adjustment per patient size (includes targeted exams where dose is matched to clinical indication); or iterative reconstruction. COMPARISON: CT abdomen pelvis wo con [id number] 01/18/2023 11:29 PM RADIATION DOSE METRICS: Total DLP (mGy-cm): 1236.49 FINDINGS: Liver: Normal. No mass. Gallbladder and biliary ducts: Normal. No calcified stones. No ductal dilation. Pancreas: Normal. No ductal dilation. Spleen: Normal. No splenomegaly. Adrenal glands: Normal. No mass. Kidneys and ureters: 7 mm and 6 mm nonobstructing right renal calculi. No ureteral calculus or hydronephrosis. The left kidney is normal. Stomach and bowel: Diverticulosis of the distal colon. No diverticulitis. The stomach and small bowel are unremarkable. Appendix: The appendix is not visualized. No secondary signs of appendicitis. Intraperitoneal space: Unremarkable. No free air. No significant fluid collection. Vasculature: Mild calcified arterial plaque. No aneurysm. Lymph nodes: Unremarkable. No enlarged lymph nodes. Urinary bladder: Unremarkable as visualized. Reproductive: Hysterectomy and oophorectomy. Bones/joints: Degenerative changes in the spine. No acute fracture. Soft tissues: Diastasis recti the mid and lower abdominal wall. Multiple fat containing midline lower abdominal wall hernias which maybe incisional. CT/CT kidney stone [id number] IMPRESSION: 1. No acute findings. 2. Nonobstructing right renal calculi. 3. Diverticulosis of the colon without diverticulitis.
--- NOTE | 2024-02-20 21:22 | ED_ITS ---
HPI - Female Genitourinary 2 General: Chief complaint: Urogenital-Female Stated complaint: right back/flank pain Time Seen by Provider: 02/20/24 20:51 Source: patient Mode of arrival: ambulatory Limitations: no limitations History of Present Illness: 73-year-old female states she been havin g right flank pain for the last few days states pain sharp in nature wraps around her abdomen she states she has had a history of kidney stones this feels similar rates her pain an 8 out of 10 denies any chest pain denies any fevers. Associated symptoms: Reports abdominal pain; Deny headache(s) or nausea Related Data Home Medications Medication Instructions Recorded Confirmed albuterol sulfate 90 mcg/actuation 1 inh inhalation QID PRN Shortness 11/06/22 12/17/23 aerosol inhaler Of Breath Or Wheezing allopurinol 100 mg tablet 100 mg PO DAILY 11/06/22 12/17/23 clonazepam 0.5 mg tablet 1 mg PO BEDTIME 11/06/22 12/17/23 hydrocodone 10 mg-acetaminophen 1 tab PO TID 11/06/22 12/17/23 325 mg tablet insulin regular hum U-500 conc 500 See Rx Instructions .Route .COMPLEX 11/06/22 12/17/23 unit/mL subcutaneous soln (Humulin R U-500 (Concentrated) Insulin) levothyroxine 125 mcg tablet 125 mcg PO DAILY 11/06/22 12/17/23 montelukast 10 mg tablet 10 mg PO DAILY PRN Shortness Of 11/06/22 12/17/23 (Singulair) Breath Or Wheezing potassium citrate 10 mEq (1,080 1,080 mg PO DAILY 11/06/22 12/17/23 mg) tablet,extended release ropinirole 2 mg tablet 2 mg PO DAILY 11/06/22 12/17/23 spironolactone 25 mg tablet 25 mg PO DAILY 11/06/22 12/17/23 torsemide 20 mg tablet 40 mg PO QAM 11/06/22 12/17/23 Previous Rx's Medication Instructions Recorded gabapentin 300 mg capsule 300 mg PO TID #30 caps 05/05/23 guaifenesin 600 mg tablet, 600 mg PO Q12H PRN 05/13/23 extended release 12 hr congestion/cough #60 tabs tamsulosin 0.4 mg capsule 0.4 mg PO DAILY kidney stones #10 12/14/23 caps nitrofurantoin 100 mg PO BID #60 caps 12/24/23 monohydrate/macrocrystals 100 mg capsule (Macrobid) hydrocodone 5 mg-acetaminophen 325 1 tab PO Q6H PRN pain #14 tabs 02/20/24 mg tablet ondansetron 4 mg disintegrating 4 mg PO Q6H PRN nausea and 02/20/24 tablet vomiting #14 tabs Allergies Allergy/AdvReac Type Severity Reaction Status Date / Time clindamycin Allergy Unknown RASH Verified 02/20/24 19:23 Review of Systems 2 Const: Denies: fever(s), chills, body aches or change in appetite ENMT: Denies: throat pain or dental pain Card: Denies: chest pain Resp: Denies: dyspnea GI: Reports: abdominal pain; Denies: nausea, vomiting or diarrhea : Reports: flank pain; Denies: dysuria Musc: Denies: neck pain or back pain Skin/Breast: Denies: rash Neuro: Denies: headache(s) PFSH ED 2 PFSH: Medical History ELI treated with BiPAP Uric acid renal calculus Hypothyroidism (acquired) 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 Physical Exam 2 Const: COMMON NORMALS: no acute distress, patient oriented x3 and healthy appearing HENMT: COMMON NORMALS: normocephalic and atraumatic HEAD & SCALP: n ormocephalic and atraumatic Eye: COMMON NORMALS: Equal, round and reactive pupils present and EOMs intact bilaterally PUPIL: Yes Equal, round and reactive pupils present Neck/C-Spine: COMMON NORMALS: full ROM and supple Chest: COMMONS NORMALS: normal inspection of the chest and normal palpation of entire chest wall Resp: COMMON NORMALS: normal respiratory effort, No retractions, No use of accessory muscles and clear to auscultation bilaterally AUSCULTATION: clear to auscultation bilaterally Cardio: COMMON NORMALS: regular rate, regular rhythm and No murmurs present (Cardio) RATE: regular rate RHYTHM: regular rhythm GI: COMMON NORMALS: Normal to inspection, nondistended, normoactive bowel sounds present, Soft to palpation, non-tender and no masses PALPATION: Yes Soft to palpation Extremity: COMMON NORMALS: normal to inspection and full ROM Neuro: COMMON NORMALS: patient oriented x3, moves all extremities and no focal motor deficits Psych: COMMON NORMALS: mental status grossly normal, Normal thought process present and cooperative THOUGHT PROCESS: Normal thought process present Skin: COMMON NORMALS: no rashes or lesions noted and no wounds GENERAL SKIN EXAM: no rashes or lesions noted Course 2 Vital Signs: Vital signs: Vital Signs Temperature 98.5 F 02/20/24 19:15 Pulse Rate 94 02/20/24 22:35 Respiratory Rate 16 02/20/24 22:35 Blood Pressure 149/96 02/20/24 22:35 Pulse Oximetry 99 02/20/24 22:35 Oxygen Delivery Me thod Nasal Cannula 02/20/24 19:15 Oxygen Flow Rate 4 02/20/24 19:15 MDM - Female Medical Decision Making Patient presents here with flank pain CT abdomen here is normal blood works normal as well pain is much improved could be muscular in nature she stable for discharge follow-up with PCP return if worsening she understands agrees to plan. Medical Records I reviewed the patient's medical records. Lab Data I reviewed the patient's lab results. 02/20/24 23:13 02/20/24 23:13 Radiology Impressions Abdomen/Pelvis CT 02/20/24 21:21 IMPRESSION: 1. No acute findings. 2. Nonobstructing right renal calculi. 3. Diverticulosis of the colon without diverticulitis. Laboratory Results WBC 10.44 10^3/uL (3.29-11.43) 02/20/24 23:13 Corrected WBC Cancelled 02/20/24 19:38 RBC 4.11 10^6/uL (3.85-5.65) 02/20/24 23:13 Hgb 13.10 g/dL (11.27-16.99) 02/20/24 23:13 Hct 42.3 % (36-47) 02/20/24 23:13 MCV 102.9 fl (85-98) H 02/20/24 23:13 MCH 31.9 pg (27-33) 02/20/24 23:13 MCHC 31.0 g/dL (30-55) 02/20/24 23:13 RDW 14.2 % (12.1-15.1) 02/20/24 23:13 Plt Count 143 10^3/cmm (157-399) L 02/20/24 23:13 MPV 10.7 fL (7.4-10.4) H 02/20/24 23:13 Gran % Cancelled 02/20/24 19:38 Neut % (Auto) 67.5 % 02/20/24 23:13 Lymph % (Auto) 21.5 % 02/20/24 23:13 [place] % (Auto) 8.8 % 02/20/24 23:13 Eos % (Auto) 1.1 % 02/20/24 23:13 Baso % (Auto) 0.6 % 02/20/24 23:13 Neut # (Auto) 7.06 10^3/uL (1.8-7.7) 02/20/24 23:13 Lymph # (Auto) 2.2 10^3/uL (0.8-4.8) 02/20/24 23:13 [place] # (Auto) 0.9 10^3/uL (0.2-0.9) 02/20/24 23:13 Eos # (Auto) 0.1 10^3/uL (0.0-0.8) 02/20/24 23:13 Baso # (Auto) 0.1 10^3/uL (0.0-0.1) 02/20/24 23:13 Absolute Gran (auto) Cancelled 02/20/24 19:38 Nucleated RBC % (auto) 0 % 02/20/24 23:13 Nucleated RBCs # 0.0 /100WBC 02/20/24 23:13 Sodium 136 mmol/L (136-145) 02/20/24 23:13 Potassium 4.5 mmol/L (3.5-5.1) 02/20/24 23:13 Chloride 98 mmol/L (98-107) 02/20/24 23:13 Carbon Dioxide 30 mmol/L (22-29) H 02/20/24 23:13 Anion Gap 12.5 (5-19) 02/20/24 23:13 BUN 12 mg/dL (8-23) 02/20/24 23:13 Creatinine 0.7 mg/dL (0.5-0.9) 02/20/24 23:13 GFR Calculation Not Reportable 02/20/24 23:13 Glucose 186 mg/dL (65-115) H 02/20/24 23:13 Calculated Osmolality 287 mOsm/kg (285-295) 02/20/24 23:13 Calcium 8.7 mg/dL (8.5-10.5) 02/20/24 23:13 Total Bilirubin 1.0 mg/dL (0.15-1.2) 02/20/24 23:13 AST 53 U/L (0-32) H 02/20/24 23:13 ALT 24 U/L (0-33) 02/20/24 23:13 Alkaline Phosphatase 111 U/L (35-105) H 02/20/24 23:13 Total Protein 7.6 g/dL (6.6-8.7) 02/20/24 23:13 Albumin 3.2 g/dL (3.5-5.2) L 02/20/24 23:13 Globulin 4.4 g/dL (1.3-4.6) 02/20/24 23:13 Lipase 17 U/L (13-60) 02/20/24 23:13 Urine Color Yellow (Yellow) 02/20/24 23:05 Urine Appearance Clear (CLEAR) 02/20/24 23:05 Urine pH 5.0 (5-7) 02/20/24 23:05 Ur Specific [place] 1.016 (1.005-1.030) 02/20/24 23:05 Urine Protein Trace (Negative) A 02/20/24 23:05 Urine Glucose (UA) Negative (Normal) 02/20/24 23:05 Urine Ketones Trace (Negative) 02/20/24 23:05 Urine Blood 1+ (Negative) A 02/20/24 23:05 Urine Nitrate Negative (Negative) 02/20/24 23:05 Urine Bilirubin Negative (Negative) 02/20/24 23:05 Urine Urobilinogen 1.0 mg/dL (Negative) 02/20/24 23:05 Ur Leukocyte Esterase Trace (Negative) A 02/20/24 23:05 Urine RBC 6-10 /hpf (0-2) 02/20/24 23:05 Urine WBC 0-5 /hpf (0-5) 02/20/24 23:05 Ur Squamous Epith Cells 10-15 /hpf (0-5) H 02/20/24 23:05 Amorphous Sediment Not Reportable 02/20/24 23:05 Urine Bacteria None seen /hpf (NONE) 02/20/24 23:05 Hyaline Casts 15.71 /lpf 02/20/24 23:05 Urine Mucus 1+ /hpf 02/20/24 23:05 All radiology interpretation(s) finalized by discharge Discharge Plan Discharge Patient Disposition: Home Clinical Impression: Flank pain Condition: Stable Prescriptions: New hydrocodone-acetaminophen 5-325 mg tablet 1 tab PO Q6H PRN (Reason: pain) Qty: 14 0RF ondansetron 4 mg tablet,disintegrating 4 mg PO Q6H PRN (Reason: nausea and vomiting) Qty: 14 0RF No Action tamsulosin 0.4 mg capsule 0.4 mg PO DAILY Qty: 10 2RF guaifenesin 600 mg tablet extended release 12hr 600 mg PO Q12H PRN (Reason: congestion/cough) Qty: 60 5RF nitrofurantoin monohyd/m-cryst [Macrobid] 100 mg capsule 100 mg PO BID Qty: 60 5RF Rx Instructions: must administer with a meal/food clonazepam 0.5 mg tablet 1 mg PO BEDTIME torsemide 20 mg tablet 40 mg PO QAM allopurinol 100 mg Tablet 100 mg PO DAILY hydrocodone-acetaminophen 10-325 mg tablet 1 tab PO TID spironolactone 25 mg tablet 25 mg PO DAILY Humulin R U-500 (Conc) Insulin 500 unit/mL Solution See Rx Instructions .ROUTE .COMPLEX Rx Instructions: 70-90 units subcutaneously per sliding scale potassium citrate 10 mEq (1,080 mg) Tablet Extended Release 1,080 mg PO DAILY ropinirole 2 mg tablet 2 mg PO DAILY levothyroxine 125 mcg Tablet 125 mcg PO DAILY montelukast [Singulair] 10 mg Tablet 10 mg PO DAILY PRN (Reason: Shortness Of Breath Or Wheezing) albuterol sulfate 90 mcg/actuation Hfa Aerosol Inhaler 1 inh INHALATION QID PRN (Reason: Shortness Of Breath Or Wheezing) gabapentin 300 mg Capsule 300 mg PO TID Qty: 30 0RF Discharge Orders: Discharge ED (Routine); Ordered 02/20/24 Ordered By: Jarrell Torres Referrals: Manoj Hall MD [Primary Care Provider] - 4-7 days Discharge Diet: Advance as tolerated Discharge Activity: Resume usual activity Patient Instructions: Flank Pain (ED), Opioid Safety Coding Level of Care Code ED Chief Wheelage Clerk for Carla Sterling
[2024-02-20] MEDS: sodium chloride 0.9% 1,000 ML 999 ML IV (22:33)
[2024-02-20] MEDS: ondansetron 2 mg/ML SDV 2 mL 4 MG IVP (22:34)
[2024-02-20 22:35] VITALS: BP 149/96; PULSE 94; RESP 16; O2SAT 99
[2024-02-20] MEDS: morphine 4 mg/mL SDV 1 mL IVP (22:35)
[2024-02-20 23:13] LABS: Bilirubin Urine Negative (Negative); Blood Urine 1+ (Negative); Glucose Urine UA Negative (Normal); Ketones Urine Trace (Negative); Leukocyte Esterase Urine Trace (Negative); Nitrate Urine Negative (Negative); Protein Urine Trace (Negative); Specific Gravity, Urine 1.016 (1.005-1.030); Urine Appearance Clear (CLEAR); Urine Color Yellow (Yellow)
[2024-02-20 23:16] LABS: Basophils # 0.1 10^3/uL (0.0-0.1); Basophils % 0.6 %; Eosinophils # 0.1 10^3/uL (0.0-0.8); Eosinophils % 1.1 %; Hematocrit 42.3 % (36-47); Lymphocytes # 2.2 10^3/uL (0.8-4.8); Lymphocytes % 21.5 %; Mean Corpuscular Hemoglobin 31.9 pg (27-33); Mean Corpuscular Volume 102.9 fl (85-98); Mean Platelet Volume 10.7 fL (7.4-10.4); Monocytes # 0.9 10^3/uL (0.2-0.9); Monocytes % 8.8 %; Neutrophils # 7.06 10^3/uL (1.8-7.7); Neutrophils % 67.5 %; Nucleated Red Blood Cells % 0 %; Platelet Count 143 10^3/cmm (157-399); Red Blood Count 4.11 10^6/uL (3.85-5.65); Red Cell Distribution Width 14.2 % (12.1-15.1); White Blood Count 10.44 10^3/uL (3.29-11.43)
[2024-02-20 23:18] LABS: Add Urine Microscopic? YES; Bacteria Urine None Seen /hpf; Hyaline Casts Urine 15.71 /lpf; Universal Test for UA Present (0); WBC Urine 0-5 /hpf (0-5)
[2024-02-20 23:27] LABS: Add Urine Culture? No; Mucus Urine 1+ /hpf
[2024-02-20 23:30] VITALS: BP 144/73; PULSE 86; RESP 16; O2SAT 97
[2024-02-20 23:33] LABS: Alanine Aminotransferase 24 U/L (0-33); Albumin Level 3.2 g/dL (3.5-5.2); Alkaline Phosphatase 111 U/L (35-105); Aspartate Amino Transferase 53 U/L (0-32); Blood Urea Nitrogen 12 mg/dL (8-23); Calcium 8.7 mg/dL (8.5-10.5); Carbon Dioxide 30 mmol/L (22-29); Chloride 98 mmol/L (98-107); Creatinine Clr Calc Pharmacy 94.8261; Globulin 4.4 g/dL (1.3-4.6); Glucose 186 mg/dL (65-115); Lipase 17 U/L (13-60); Osmolality Calculated 287 mOsm/kg (285-295); Sodium 136 mmol/L (136-145); Total Protein 7.6 g/dL (6.6-8.7)
[2024-02-20 23:41] LABS: Anion Gap 12.5 (5-19); Potassium 4.5 mmol/L (3.5-5.1)
[2024-02-21] VITALS: BP 124/71
[2024-02-21 00:30] VITALS: BP 150/105; RESP 16; O2SAT 98
[2024-02-21 00:36] VITALS: BP 121/75; PULSE 80; O2SAT 93
== END 2024-02-21 00:58 | disposition home or self-care (01) ==
PROVIDERS: Emergency Provider Emergency Medicine; PCP Family Medicine Adult Medicine
DX: R10.9 Unspecified abdominal pain (principal); Z79.4 Long term (current) use of insulin; Z87.891 Personal history of nicotine dependence; Z99.81 Dependence on supplemental oxygen; E11.22 Type 2 diabetes mellitus with diabetic chronic kidney disease; N18.2 Chronic kidney disease, stage 2 (mild); I50.9 Heart failure, unspecified; J44.9 Chronic obstructive pulmonary disease, unspecified; Z87.442 Personal history of urinary calculi
CPT/HCPCS: 74176; 80053; 81001; 83690; 85025; 96374; 96375; 99285; J2270; J2405; J7030

== ENCOUNTER → 2024-03-09 11:30 | Outpatient (BNVA) | payer MEDICARE, OTHER, SELFPAY | PROVIDERS: PCP Family Medicine Adult Medicine; Visit Provider Podiatrist Foot & Ankle Surgery | DX: B35.1 Tinea unguium (principal); N18.9 Chronic kidney disease, unspecified; I73.9 Peripheral vascular disease, unspecified; G62.89 Other specified polyneuropathies; E11.42 Type 2 diabetes mellitus with diabetic polyneuropathy; Z79.4 Long term (current) use of insulin | CPT/HCPCS: 11721 ==

== ENCOUNTER → 2024-05-11 11:02 | Outpatient (BNVA) | payer MEDICARE, OTHER, SELFPAY | PROVIDERS: PCP Family Medicine Adult Medicine; Visit Provider Podiatrist Foot & Ankle Surgery | DX: B35.1 Tinea unguium (principal); N18.9 Chronic kidney disease, unspecified; I73.9 Peripheral vascular disease, unspecified; G62.89 Other specified polyneuropathies; E11.42 Type 2 diabetes mellitus with diabetic polyneuropathy; Z79.4 Long term (current) use of insulin | CPT/HCPCS: 11721 ==

== ENCOUNTER → 2024-07-12 09:01 | Outpatient (BNVA) | payer MEDICARE, OTHER, SELFPAY | PROVIDERS: PCP Family Medicine Adult Medicine; Visit Provider Podiatrist Foot & Ankle Surgery | DX: E11.42 Type 2 diabetes mellitus with diabetic polyneuropathy (principal); B35.1 Tinea unguium; N18.9 Chronic kidney disease, unspecified; I73.9 Peripheral vascular disease, unspecified; G62.89 Other specified polyneuropathies; Z79.4 Long term (current) use of insulin; R60.9 Edema, unspecified | CPT/HCPCS: 11721; 99213 ==

== ENCOUNTER 2024-08-22 11:53 | Outpatient (CLI) | payer MEDICARE, OTHER, SELFPAY ==
[2024-08-22 14:12] LABS: 25 Hydroxy Vitamin D 27 ng/mL (30-100); Alanine Aminotransferase 22 U/L (0-33); Albumin Level 3.6 g/dL (3.5-5.2); Alkaline Phosphatase 142 U/L (35-105); Anion Gap 12.4 (5-19); Aspartate Amino Transferase 46 U/L (0-32); Blood Urea Nitrogen 14 mg/dL (8-23); Calcium 9.6 mg/dL (8.5-10.5); Carbon Dioxide 39 mmol/L (22-29); Chloride 94 mmol/L (98-107); Chol HDL Ratio 3.58 mg/dL (0.0-4.40); Cholesterol 197 mg/dL (0-200); Ferritin 203 ng/mL (15-150); Globulin 4.4 g/dL (1.3-4.6); Glucose 109 mg/dL (65-115); HDL Cholesterol 55 mg/dL (60-100); Iron 59 ug/dL (37-145); LDL Cholesterol 121 (0-100); LDL Cholesterol Calculated 117 mg/dL (50-129); LDL HDL Ratio 2.13 RATIO (0.00-3.22); Osmolality Calculated 293 mOsm/kg (285-295); Percent Saturation 18.4 % (20-50); Potassium 4.4 mmol/L (3.5-5.1); Sodium 141 mmol/L (136-145); Thyroid Stimulating Hormone 2.57 uIU/mL (0.27-4.20); Total Bilirubin 0.8 mg/dL (0.15-1.2); Total Iron Binding Capacity 320 mcg/dl; Triglycerides 126 mg/dL (0-150); Unsaturated Iron Binding 261 ug/dL (112-347); Vitamin B12 468 pg/mL (232-1245)
[2024-08-22 14:29] LABS: Free T4 Free Thyroxine 1.29 ng/dL (0.82-1.77); T3 Free 1.9 PG/ML (2.0-4.4)
[2024-08-25 11:39] LABS: Vitamin B6 Plasma 5.8 ng/mL (2.1-21.7)
[2024-08-25 14:54] LABS: Zinc Level, Serum or Plasma 70 mcg/dL (60-130)
[2024-08-25 23:54] LABS: Vitamin B1(Thiamin) Plas/Ser 19 nmol/L (8-30)
== END 2024-08-22 11:54 | disposition home or self-care (01) ==
LOC: LAB 12:18
PROVIDERS: PCP Family Medicine Adult Medicine; Visit Provider Internal Medicine
DX: I50.32 Chronic diastolic (congestive) heart failure (principal); F41.1 Generalized anxiety disorder; E11.8 Type 2 diabetes mellitus with unspecified complications; E78.2 Mixed hyperlipidemia; E03.9 Hypothyroidism, unspecified; G89.29 Other chronic pain; J44.9 Chronic obstructive pulmonary disease, unspecified; K59.00 Constipation, unspecified; E87.29 Other acidosis; I73.9 Peripheral vascular disease, unspecified; J98.4 Other disorders of lung; G47.33 Obstructive sleep apnea (adult) (pediatric); J96.11 Chronic respiratory failure with hypoxia; J96.12 Chronic respiratory failure with hypercapnia; E66.813 Obesity, class 3; Z68.43 Body mass index [BMI] 50.0-59.9, adult; E66.01 Morbid (severe) obesity due to excess calories; Z86.73 Personal history of transient ischemic attack (TIA), and cerebral infarction without residual deficits; I48.92 Unspecified atrial flutter; N18.32 Chronic kidney disease, stage 3b; N39.0 Urinary tract infection, site not specified; F03.B4 Unspecified dementia, moderate, with anxiety
CPT/HCPCS: 80053; 80061; 82306; 82525; 82607; 82728; 83540; 83550; 83735; 84207; 84425; 84439; 84443; 84481; 84630; 85025

== ENCOUNTER 2024-08-29 08:59 | Outpatient (CLI) | payer MEDICARE, OTHER, SELFPAY ==
[2024-08-29 10:24] LABS: Basophils # 0.1 10^3/uL (0.0-0.1); Basophils % 0.7 %; Eosinophils # 0.2 10^3/uL (0.0-0.8); Eosinophils % 2.7 %; Hematocrit 41.4 % (36-47); Lymphocytes # 1.8 10^3/uL (0.8-4.8); Lymphocytes % 26.5 %; Mean Corpuscular HGB Conc 31.6 g/dL (30-55); Monocytes # 0.7 10^3/uL (0.2-0.9); Monocytes % 9.5 %; Neutrophils # 4.17 10^3/uL (1.8-7.7); Neutrophils % 60.2 %; Nucleated Red Blood Cells % 0 %; Platelet Count 146 10^3/cmm (157-399); Red Cell Distribution Width 14.3 % (12.1-15.1); White Blood Count 6.94 10^3/uL (3.29-11.43)
[2024-08-29 10:39] LABS: Estmated Average Glucose 169; Hemoglobin A1C 7.5 % (4.0-6.0)
== END 2024-08-29 09:00 | disposition home or self-care (01) ==
PROVIDERS: PCP Family Medicine Adult Medicine; Visit Provider Internal Medicine
DX: E11.8 Type 2 diabetes mellitus with unspecified complications (principal); F41.1 Generalized anxiety disorder; G89.29 Other chronic pain; E03.9 Hypothyroidism, unspecified; J44.9 Chronic obstructive pulmonary disease, unspecified; K59.00 Constipation, unspecified; E87.29 Other acidosis; I73.9 Peripheral vascular disease, unspecified; I50.32 Chronic diastolic (congestive) heart failure; J98.4 Other disorders of lung; G47.33 Obstructive sleep apnea (adult) (pediatric); J96.11 Chronic respiratory failure with hypoxia; J96.12 Chronic respiratory failure with hypercapnia; E78.2 Mixed hyperlipidemia; E66.813 Obesity, class 3; Z86.73 Personal history of transient ischemic attack (TIA), and cerebral infarction without residual deficits; N39.0 Urinary tract infection, site not specified
CPT/HCPCS: 36415; 83036; 85025

== ENCOUNTER → 2024-09-21 10:07 | Outpatient (BNVA) | payer MEDICARE, OTHER, SELFPAY | PROVIDERS: PCP Family Medicine Adult Medicine; Visit Provider Podiatrist Foot & Ankle Surgery | DX: E11.42 Type 2 diabetes mellitus with diabetic polyneuropathy (principal); B35.1 Tinea unguium; I73.9 Peripheral vascular disease, unspecified; G62.89 Other specified polyneuropathies; Z79.4 Long term (current) use of insulin; R60.9 Edema, unspecified | CPT/HCPCS: 11721; 99213 ==

== ENCOUNTER 2024-11-21 10:00 | Outpatient (CLI) | payer MEDICARE, OTHER, SELFPAY | END 2024-11-21 10:01 | disposition home or self-care (01) | PROVIDERS: PCP Family Medicine; Visit Provider Family Medicine | DX: I50.20 Unspecified systolic (congestive) heart failure (principal); E11.42 Type 2 diabetes mellitus with diabetic polyneuropathy; B35.1 Tinea unguium; I87.2 Venous insufficiency (chronic) (peripheral); I73.9 Peripheral vascular disease, unspecified; G62.89 Other specified polyneuropathies; Z79.4 Long term (current) use of insulin; R60.9 Edema, unspecified; S90.31XA Contusion of right foot, initial encounter; X58.XXXA Exposure to other specified factors, initial encounter | CPT/HCPCS: 10140; 11721; 29580; 93306; 99213 ==

== ENCOUNTER → 2024-11-29 08:59 | Outpatient (BNVA) | payer MEDICARE, OTHER, SELFPAY | PROVIDERS: PCP Family Medicine; Visit Provider Podiatrist Foot & Ankle Surgery | DX: I73.9 Peripheral vascular disease, unspecified (principal); G62.89 Other specified polyneuropathies; E11.42 Type 2 diabetes mellitus with diabetic polyneuropathy; Z79.4 Long term (current) use of insulin; R60.9 Edema, unspecified; I87.2 Venous insufficiency (chronic) (peripheral) | CPT/HCPCS: 99213 ==

== ENCOUNTER → 2025-02-07 09:11 | Outpatient (BNVA) | payer MEDICARE, OTHER, SELFPAY | PROVIDERS: PCP Family Medicine; Visit Provider Podiatrist Foot & Ankle Surgery | DX: E11.8 Type 2 diabetes mellitus with unspecified complications (principal); B35.1 Tinea unguium; I73.9 Peripheral vascular disease, unspecified; G62.89 Other specified polyneuropathies; E11.42 Type 2 diabetes mellitus with diabetic polyneuropathy; Z79.4 Long term (current) use of insulin; R60.9 Edema, unspecified; I87.2 Venous insufficiency (chronic) (peripheral) | CPT/HCPCS: 11721 ==

== ENCOUNTER → 2025-05-02 08:56 | Outpatient (BNVA) | payer MEDICARE, OTHER, SELFPAY | PROVIDERS: PCP Family Medicine; Visit Provider Podiatrist Foot & Ankle Surgery | DX: E11.42 Type 2 diabetes mellitus with diabetic polyneuropathy (principal); B35.1 Tinea unguium; R60.9 Edema, unspecified; E11.8 Type 2 diabetes mellitus with unspecified complications; I73.9 Peripheral vascular disease, unspecified; G62.89 Other specified polyneuropathies; Z79.4 Long term (current) use of insulin; I87.2 Venous insufficiency (chronic) (peripheral) | CPT/HCPCS: 11721; 29581; 99213 ==